=== PATIENT | male | born 1965 | race Caucasian/White ===

== ENCOUNTER 2016-07-16 20:24 | Inpatient (IN) ==
--- NOTE | 2016-07-16 20:35 | Emergency Department Note ---
Disposition Clinical Impression: Cerebrovascular disease, Alcohol withdrawal, Hypokalemia, Hallucinosis, Abnormal EKG, Head injury, Abnormal liver function test, Abnormal urinalysis, Abnormal EKG, Tachycardia Disposition: Admitted As Inpatient Condition: Fair Referrals: NO,PCP [Primary Care Provider] - Forms: ED Satisfaction Letter General Adult HPI - General Chief complaint: ED Psychiatric Symptoms Stated complaint: psych/withdrawal Time Seen by Provider: 07/16/16 20:34 - History of Present Illness HPI Narrative: 51-year-old male brought in to the ED, there is concern for hallucinosis and possible alcohol withdrawal. The patient just checked himself out from a detox facility. He reports he has not had a drink of alcohol since Tuesday. The family members report the patient thinks he is "Thor", he is having hallucinations. The patient was hearing voices telling him to bang his head on the table which he did. There is no history of seizure. There is no history of laceration or bleeding or drug overdose. The patient denies chest pain shortness of breath or abdominal pain. There is no history of fever or headache. No neck pain or back pain no rashes. There is been no numbness or weakness in the arms or legs or bowel or bladder dysfunction no unilateral arm weakness or numbness or slurred speech. The patient is currently not anticoagulated. There is a history of tremulousness particularly in the upper extremities. The patient is not known to be diabetic. - Related Data Home Medications Medication Instructions Recorded Confirmed Multivitamin [Multi-Day Vitamins] 1 each PO DAILY 07/16/16 07/16/16 Allergies Allergy/AdvReac Type Severity Reaction Status Date / Time lorazepam [From Ativan] Allergy See Verified 11/27/14 00:59 Comments All systems ED: reviewed and negative except as stated. Past Medical History - Past Medical History Medical history: Reports: no medical history, other (Chronic alcohol abuse) Surgical history: Reports: other - Social History Smoking Status: Current every day smoker Alcohol use: Reports: occasionally Drug use: Reports: none Physical Exam - General Limitations: no limitations General appearance: alert, in no apparent distress - Head Head exam: atraumatic, normocephalic, normal inspection - Eye Eye exam: Present: normal appearance, PERRL, EOMI. Absent: scleral icterus, conjunctival injection, miosis, mydriasis - ENT ENT exam: normal exam, normal oropharynx, mucous membranes moist, TM's normal bilaterally, normal external ear exam - Neck Neck exam: Present: normal inspection, full ROM, trachea midline. Absent: tenderness, meningismus - Chest Chest inspection: Present: normal inspection, symmetric chest wall rise. Absent : tenderness - Respiratory Respiratory exam: Present: normal lung sounds bilaterally. Absent: respiratory distress, wheezes, stridor, accessory muscle use, prolonged expiratory phase - Cardiovascular Cardiovascular exam: Present: regular rate, normal rhythm, normal heart sounds - Abdominal Exam Abdominal exam: Present: soft, Non-Tender, normal bowel sounds. Absent: tenderness, distention, guarding, rebound, rigidity, trauma - Extremities Exam Extremities exam: Present: normal inspection, full ROM, normal capillary refill. Absent: tenderness, pedal edema, joint swelling, calf tenderness - Expanded Lower Extremity Exam Hip/Pelvis exam: Present: full ROM. Absent: tenderness Upper leg exam: Present: full ROM. Absent: tenderness Knee exam: Present: full ROM. Absent: tenderness Lower leg exam: Present: full ROM. Absent: tenderness Ankle exam: Present: full ROM. Absent: tenderness Foot/toe exam: Present: full ROM. Absent: tenderness Neurovascular/Tendon exam: Present: normal capillary refill. Absent: motor deficit, sensory deficit, tendon deficit, extremity cold to touch, pallor - Back Exam Back exam: Present: normal inspection, full ROM. Absent: tenderness, CVA tenderness (R), CVA tenderness (L), vertebral tenderness - Neurological Exam Neurological exam: Present: alert, oriented X3, CN II-XII intact, other (Gen. upper extremity tremors are noted in the hands. ). Absent: motor sensory deficit - Psychiatric Psychiatric exam: Present: normal affect, normal mood - Skin Skin exam: Present: warm, dry, intact, normal color. Absent: rash, cyanosis, diaphoresis, erythema, pallor, mottled Course Vital Signs Temperature 98.3 F 07/16/16 20:30 Pulse Rate 108 07/16/16 20:30 Respiratory Rate 18 07/16/16 20:30 Blood Pressure 121/105 07/16/16 20:30 O2 Sat by Pulse Oximetry 98 07/16/16 20:30 Temperature 98.3 F 07/16/16 20:30 Pulse Rate 108 07/16/16 20:30 Respiratory Rate 18 07/16/16 20:30 Blood Pressure 121/105 07/16/16 20:30 O2 Sat by Pulse Oximetry 98 07/16/16 20:30 Oxygen Delivery Oxygen Delivery Room Air Medical Decision Making - [facility] Narrative Medical decision making narrative: The patient has been hallucinating, he is hearing voices, the patient is tremulous and has a presentation consistent with alcohol withdrawal syndrome. His potassium is notably low at 2.2. His liver function tests are abnormal as well as his urinalysis. The patient has been banging his head, there is no obvious trauma to the head, his CT scan head is negative. His neck is supple with no evidence of focal tenderness over the cervical spine. There is no evidence of trauma otherwise. Based on his appearance confusion, likely alcohol withdrawal syndrome, severe electrolyte abnormality, I thought it would be appropriate to admit the patient to the hospital. I discussed the case with the hospitalist on-call who has accepted the patient to his care. The patient is currently stable pending admission. Valium was ordered as well as potassium chloride by mouth and IV. - Lab Data Lab results reviewed: Yes I reviewed the patient's lab results. Result diagrams: 07/16/16 21:28 07/16/16 21:28 Lab Results 07/16/16 07/16/16 07/16/16 Range/Units 21:28 21:28 21:28 WBC 4.5 (4.3-11.1) K/mcL RBC 4.73 (4.19-5.50) M/mcL Hgb 14.9 (12.9-16.9) g/dL Hct 43.0 (37.5-50.1) % MCV 90.9 (83.0-100.0) fL MCH 31.5 (28.0-33.3) pg MCHC 34.7 (31.6-35.5) g/dL RDW 15.7 H (11.5-14.5) % Plt Count 127 L (140-400) K/mcL MPV 9.5 (9.4-12.4) fL Immature Gran % 0.2 (0-4) % Seg Neutrophils % 66.5 % Lymphocytes % 19.2 % Monocytes % 13.0 % Eosinophils % 0.9 % Basophils % 0.2 % Neutrophils # 3.0 (1.6-8.9) K/mcL Lymphocytes # 0.9 (0.6-4.6) K/mcL Monocytes # 0.6 (0.0-1.3) K/mcL Eosinophils # 0.0 (0.0-0.6) K/mcL Basophils # 0.0 (0.0-0.2) K/mcL PT (9.4-12.1) Seconds INR APTT (26.0-36.0) Seconds Sodium 138 (136-145) mEq/L Potassium 2.2 L* (3.5-4.5) mEq/L Chloride 97 L (98-109) mEq/L Carbon Dioxide 26 (19-29) mEq/L BUN 16 (8-26) mg/dL Creatinine 1.08 (0.72-1.25) mg/dL Est GFR ( Amer) > 60 (> 60) Est GFR (Non-Af Amer) > 60 (> 60) BUN/Creatinine Ratio 15 (6-26) Glucose 87 (70-99) mg/dL Calculated Osmolality 287 (280-300) Calcium 10.3 (8.6-10.8) mg/dL Total Bilirubin 1.7 H (0.2-1.2) mg/dL Direct Bilirubin 0.6 H (0.0-0.5) mg/dL Indirect Bilirubin 1.1 (0.0-1.2) mg/dL AST 54 H (5-34) Units/L ALT 60 H (0-55) Units/L Alkaline Phosphatase 83 (38-126) Units/L Creatine Kinase 566 H (30-200) Units/L C-Reactive Protein 5 H (Less than 5) mg/L Serum Total Protein 7.8 (6.0-8.3) g/dL Albumin 4.3 (3.5-5.0) g/dL Globulin 3.5 (2.4-3.5) g/dL Albumin/Globulin Ratio 1.2 (1.1-2.2) Lipase 20 (8-78) Units/L TSH 0.751 (0.350-4.840) mcIU/mL Urine Color (Yellow) Urine Clarity (Clear) Urine pH (5.0-8.0) pH Units Ur Specific [place] (1.010-1.025) Urine Protein (Neg-Trace) mg/dL Urine Glucose (UA) (Normal) mg/dL Urine Ketones (Negative) mg/dL Urine Blood (Negative) Urine Nitrite (Negative) Urine Bilirubin (Negative) Urine Urobilinogen (Normal) mg/dL Ur Leukocyte Esterase (Negative) Urine Microscopic RBC (0-3) per hpf Urine Microscopic WBC (0-3) per hpf Ur Squamous Epith Cells (None-Few) per lpf Urine Bacteria (None-Few) per hpf Hyaline Casts (None-Few) per lpf Urine Mucus (Few) Salicylates < 5.0 L (15-30) mg/dL Urine Opiates Screen (Rdgpap=957) ng/mL Acetaminophen < 1.0 L (10-30) mcg/mL Ur Barbiturates Screen (Ympvkz=763) ng/mL Ur Phencyclidine Scrn (Cutoff=25) ng/mL Ur Amphetamines Screen (Aiesme=6517) ng/mL U Benzodiazepines Scrn (Owzdqe=647) ng/mL Urine Cocaine Screen (Cutoff= 300) ng/mL U Marijuana (THC) Screen (Cutoff = 50) ng/mL Ethyl Alcohol < 10 (0-10) mg/dL 07/16/16 07/16/16 07/16/16 Range/Units 21:28 21:47 21:47 WBC (4.3-11.1) K/mcL RBC (4.19-5.50) M/mcL Hgb (12.9-16.9) g/dL Hct (37.5-50.1) % MCV (83.0-100.0) fL MCH (28.0-33.3) pg MCHC (31.6-35.5) g/dL RDW (11.5-14.5) % Plt Count (140-400) K/mcL MPV (9.4-12.4) fL Immature Gran % (0-4) % Seg Neutrophils % % Lymphocytes % % Monocytes % % Eosinophils % % Basophils % % Neutrophils # (1.6-8.9) K/mcL Lymphocytes # (0.6-4.6) K/mcL Monocytes # (0.0-1.3) K/mcL Eosinophils # (0.0-0.6) K/mcL Basophils # (0.0-0.2) K/mcL PT 11.8 (9.4-12.1) Seconds INR 1.1 APTT 30.4 (26.0-36.0) Seconds Sodium (136-145) mEq/L Potassium (3.5-4.5) mEq/L Chloride (98-109) mEq/L Carbon Dioxide (19-29) mEq/L BUN (8-26) mg/dL Creatinine (0.72-1.25) mg/dL Est GFR ( Amer) (> 60) Est GFR (Non-Af Amer) (> 60) BUN/Creatinine Ratio (6-26) Glucose (70-99) mg/dL Calculated Osmolality (280-300) Calcium (8.6-10.8) mg/dL Total Bilirubin (0.2-1.2) mg/dL Direct Bilirubin (0.0-0.5) mg/dL Indirect Bilirubin (0.0-1.2) mg/dL AST (5-34) Units/L ALT (0-55) Units/L Alkaline Phosphatase (38-126) Units/L Creatine Kinase (30-200) Units/L C-Reactive Protein (Less than 5) mg/L Serum Total Protein (6.0-8.3) g/dL Albumin (3.5-5.0) g/dL Globulin (2.4-3.5) g/dL Albumin/Globulin Ratio (1.1-2.2) Lipase (8-78) Units/L TSH (0.350-4.840) mcIU/mL Urine Color [place] A (Yellow) Urine Clarity Turbid A (Clear) Urine pH 6.0 (5.0-8.0) pH Units Ur Specific [place] 1.027 H (1.010-1.025) Urine Protein >=300 H (Neg-Trace) mg/dL Urine Glucose (UA) Normal (Normal) mg/dL Urine Ketones 15 H (Negative) mg/dL Urine Blood Trace H (Negative) Urine Nitrite Positive A (Negative) Urine Bilirubin Moderate H (Negative) Urine Urobilinogen Normal (Normal) mg/dL Ur Leukocyte Esterase Small H (Negative) Urine Microscopic RBC 5-15 H (0-3) per hpf Urine Microscopic WBC 5-15 H (0-3) per hpf Ur Squamous Epith Cells Many H (None-Few) per lpf Urine Bacteria None Seen (None-Few) per hpf Hyaline Casts Many H (None-Few) per lpf Urine Mucus Many H (Few) Salicylates (15-30) mg/dL Urine Opiates Screen Negative (Rozjwz=179) ng/mL Acetaminophen (10-30) mcg/mL Ur Barbiturates Screen Negative (Wygoas=698) ng/mL Ur Phencyclidine Scrn Negative (Cutoff=25) ng/mL Ur Amphetamines Screen Negative (Ioteay=9135) ng/mL U Benzodiazepines Scrn Negative (Rrnzeo=757) ng/mL Urine Cocaine Screen Negative (Cutoff= 300) ng/mL U Marijuana (THC) Screen Negative (Cutoff = 50) ng/mL Ethyl Alcohol (0-10) mg/dL - Radiology Data Radiology results reviewed: Yes I reviewed the patient's radiology results.
[2016-07-16 21:34] LABS: Basophils % 0.2 %; Eosinophils % 0.9 %; Hemoglobin 14.9 g/dL (12.9-16.9); Immature Granulocytes % 0.2 % (0-4); Lymphocytes # 0.9 K/mcL (0.6-4.6); Lymphocytes % 19.2 %; Mean Corpuscular HGB Conc 34.7 g/dL (31.6-35.5); Mean Corpuscular Hemoglobin 31.5 pg (28.0-33.3); Mean Corpuscular Volume 90.9 fL (83.0-100.0); Mean Platelet Volume 9.5 fL (9.4-12.4); Monocytes # 0.6 K/mcL (0.0-1.3); Platelet Count 127 K/mcL (140-400); Red Blood Count 4.73 M/mcL (4.19-5.50); Red Cell Distribution Width 15.7 % (11.5-14.5); Segmented Neutrophils % 66.5 %
[2016-07-16 21:42] LABS: INR 1.1; Prothrombin Time 11.8 Seconds (9.4-12.1)
[2016-07-16 21:44] LABS: Activated Partial Thrombo Time 30.4 Seconds (26.0-36.0)
[2016-07-16 21:51] LABS: C-Reactive Protein 5 mg/L (Less than 5); Lipase 20 Units/L (8-78)
[2016-07-16 21:52] LABS: Acetaminophen < 1.0 mcg/mL (10-30); Alanine Aminotransferase 60 Units/L (0-55); Albumin 4.3 g/dL (3.5-5.0); Albumin/Globulin Ratio 1.2 (1.1-2.2); Alkaline Phosphatase 83 Units/L (38-126); Aspartate Amino Transferase 54 Units/L (5-34); BUN/Creatinine Ratio 15 (6-26); Bilirubin,Direct 0.6 mg/dL (0.0-0.5); Bilirubin,Indirect 1.1 mg/dL (0.0-1.2); Bilirubin,Total 1.7 mg/dL (0.2-1.2); Blood Urea Nitrogen 16 mg/dL (8-26); Calcium 10.3 mg/dL (8.6-10.8); Carbon Dioxide 26 mEq/L (19-29); Chloride 97 mEq/L (98-109); Ethanol < 10 mg/dL (0-10); Globulin 3.5 g/dL (2.4-3.5); Glucose 87 mg/dL (70-99); Osmolality,Calculated 287 (280-300); Salicylate < 5.0 mg/dL (15-30); Sodium 138 mEq/L (136-145); Total Protein 7.8 g/dL (6.0-8.3); eGFR For African Americans > 60 (> 60); eGFR For Non-African Americans > 60 (> 60)
[2016-07-16 21:54] LABS: Potassium 2.2 mEq/L (3.5-4.5)
[2016-07-16 21:55] LABS: Bilirubin,Urine Moderate (Negative); Blood,Urine Trace (Negative); Clarity,Urine Turbid (Clear); Color,Urine Orange (Yellow); Glucose,Urine (UA) Normal (Normal); Ketones,Urine 15 mg/dL (Negative); Leukocyte Esterase,Urine Small (Negative); Nitrite,Urine Positive (Negative); Protein,Urine >=300 mg/dL (Neg-Trace); Specific Gravity,Urine 1.027 (1.010-1.025); Urobilinogen,Urine Normal (Normal)
[2016-07-16] MEDS ORDERED: Potassium Chloride 20 MEQ, Lidocaine 1% 2 ML in D5% in Water 250 ML IVPB ONE (21:56)
[2016-07-16 21:57] LABS: Bacteria,Urine None Seen per hpf (None-Few); Squamous Epithelial Cell,Urine Many per lpf (None-Few)
[2016-07-16] MEDS ORDERED: diazePAM 10 MG/2 ML SYRINGE IVP ONE (21:59)
[2016-07-16 22:08] LABS: Hyaline Casts,Urine Many per lpf (None-Few); Mucus,Urine Many (Few)
[2016-07-16 22:12] LABS: Thyroid Stimulating Hormone 0.751 mcIU/mL (0.350-4.840)
[2016-07-16 22:15] LABS: Amphetamine Screen,Urine Negative ng/mL (Cutoff=1000); Barbiturate Screen,Urine Negative ng/mL (Cutoff=200); Benzodiazepines Screen,Urine Negative ng/mL (Cutoff=200); Cannabinoid Screen,Urine Negative ng/mL (Cutoff = 50); Cocaine Screen,Urine Negative ng/mL (Cutoff= 300); Opiate Screen,Urine Negative ng/mL (Cutoff=300); Phencyclidine Screen,Urine Negative ng/mL (Cutoff=25)
[2016-07-16 22:24] LABS: Creatine Kinase 566 Units/L (30-200)
[2016-07-16] MEDS ORDERED: diazePAM 10 MG/2 ML SYRINGE IVP PRN ×4 (23:33)
[2016-07-16] MEDS ORDERED: *HR* Promethazine 25 MG/ML VIAL IVP PRN (23:33)
[2016-07-16] MEDS ORDERED: Naloxone 0.4 MG/ML INJ IVP PRN (23:38)
[2016-07-17] MEDS ORDERED: Magnesium Sulfate 2 GM in D5% in Water 100 ML IVPB ONE (00:28)
--- NOTE | 2016-07-17 00:46 | Internal Med History&Physical ---
Date of Encounter: 07/17/16 Time of Encounter: 00:41 Assessment and Plan (1) Wernickes encephalopathy Current visit: Yes Status: Acute Patient's constellation of symptoms including altered mental status and encephalopathy, nystagmus, ataxia and history of alcohol abuse is concerning for Wernicke encephalopathy. We will replace thiamine. We will continue to closely monitor the patient's neurologic symptoms. Alcohol withdrawal is also a concern however if his last drink was on Tuesday he would be towards the end of the window for alcohol withdrawal. Nonetheless we will place the patient on the CIWA protocol and monitor for symptoms of withdrawal and treat with Valium as needed. Patient's behaviors are likely cause for elevated CK, no evidence of rhabdomyolysis. We will fluid hydrate and recheck in the morning. (2) Alcoholism Current visit: Yes Status: Acute Patient reports last drink on Tuesday, we will monitor for withdrawal symptoms as discussed above. We will place social work consult for further outpatient follow-up (3) Hypokalemia Current visit: Yes Status: Acute Likely related to poor by mouth intake in the setting of alcohol use. Potassium was 2.2 on presentation. The patient does not use diuretics and does not have a history of any recent diarrhea. No EKG changes noted. Will replete with by mouth and IV potassium. Recheck BMP in the morning. Magnesium was also 1.5, will replete. (4) UTI (urinary tract infection) Current visit: Yes Status: Acute Patient has positive nitrites with small leukocyte esterase and white blood cells in the urine. Given the patient's altered mental status we will treat with Rocephin 1 g daily for 3 days. Qualifiers: Urinary tract infection type: site unspecified Hematuria presence: with hematuria Qualified Code(s): N39.0 - Urinary tract infection, site not specified; R31.9 - Hematuria, unspecified (5) Transaminitis Current visit: Yes Status: Acute AST 54 and a ALT 60. Likely related to alcohol use. No history of hepatitis or chronic liver disease. Will trend LFTs. (6) DVT prophylaxis Current visit: Yes Status: Acute Heparin 5000 units subcutaneous twice a day. Internal Medicine - H&P: HPI Chief complaint: AMS Admitted From: Emergency Dept Plans for Post Hospital Care: Home History of present illness: Mr. Pulliam is a 51 year old male with history of alcohol abuse presents with altered mental status. Patient states that he had an episode today where he was banging his head on the table. Patient states he remembers this event and is not sure why he did it. Patient states that otherwise he has been feeling pretty normal. Patient states that he is an alcoholic and most recently drank on Tuesday. Patient states that he was sober for approximately 3 years and started again drinking around his birthday in April. Patient states that he did not drink every day and when he did drink was about a quarter of a fifth of hard liquor. Patient reports having withdrawal symptoms in the past including seizures. Patient denies withdrawal symptoms since he stopped drinking on Tuesday. Denies any recent seizure activity. Patient states that his been feeling a little unsteady on his feet recently. Patient denies hallucinations to me. He denies fever, chills, chest pain, shortness of breath, abdominal pain , nausea, vomiting, diarrhea or dysuria, lower extremity swelling. At the time I examined the patient there is no family to give further history but on review of the ED documentation family members did report hallucinations and it was voices that told him to hit his head on the table. It is also reported that the patient recently checked himself out of a detox facility however he tells me that he has not been in treatment recently. Past Med Surg Social Fam HX - Past Medical History Medical history: no medical history, other (Chronic alcohol abuse) Psychiatric history: no psych history - Past Surgical History Surgical History: other - Social History Smoking Status: Current every day smoker Alcohol use: occasionally Drug use: none - Additional Family History Additional family history: Patient denies any significant family history. Internal Medicine - H&P: Meds Multivitamin [Multi-Day Vitamins] 1 each PO DAILY 07/16/16 [History] Allergies lorazepam [From Ativan] Allergy (Verified 11/27/14 00:59) See Comments reverse side affects All Systems PM: A 10-system review of systems was performed and is negative for pertinent findings except as documented above in the HPI. - Constitutional Constitutional: no chills, no fever(s) - EENT Eyes: blurry vision Nose, mouth and throat: no sinus pain, no sinus pressure, no sore throat - Cardiovascular Cardiovascular ROS IM: no chest pain, no dyspnea, no syncope - Respiratory Respiratory: no cough, no dyspnea - Gastrointestinal Gastrointestinal: no abdominal pain, no diarrhea, no nausea, no vomiting - Genitourinary Genitourinary ROS male: no dysuria, no hematuria - Integumentary Integumentary IM: no erythema, no rash - Neurological Neurological ROS: abnormal gait, behavioral changes, confusion, disequilibrium, tremor(s), other visual disturbances, no focal weakness, no frequent falls, no headache(s), no numbness, no tingling - Psychiatric Psychiatric: hallucinations, no homicidal ideation, no suicidal ideation - Endocrine Endocrine IM: no polydipsia, no polyuria - Hematologic/Lymphatic Hematologic/Lymphatic: no easy bleeding, no easy bruising - Constitutional Vitals: Temp Pulse Resp BP Pulse Ox 98.5 F 84 16 116/86 100 07/17/16 00:22 07/17/16 00:07/17/16 00:07/17/16 00:07/17/16 00:22 General appearance: Present: A&O X 3, no acute distress Exam: Appears mildly anxious - Head Head exam: Present: atraumatic, normal inspection, normocephalic - Eye Eye exam: Present: EOMI, PERRL Additional comments: Horizontal nystagmus present bilaterally - ENT ENT exam: Present: mucous membranes moist - Neck Neck exam general surgery: Present: full ROM. Absent: tenderness, nuchal rigidity - Respiratory Respiratory exam: Present: CTAB. Absent: rales, rhonchi, wheezes - Cardiovascular Cardiovascular exam: Present: RRR. Absent: gallop, rubs, systolic murmur, tachycardia - GI/Abdominal GI/Abdominal exam: Present: normal bowel sounds, soft, no peritoneal signs. Absent: distended, tenderness - Extremities Exam Extremities exam: Present: warm. Absent: calf tenderness, pedal edema - Neurological Exam Neurological exam: Present: abnormal gait (Significant ataxia) Additional comments: Patient is alert and oriented 3. He does have some jerking motions in his upper extremity. There is horizontal nystagmus present bilaterally. Cranial nerves II through XII are intact. No focal weakness. - Psychiatric Psychiatric exam: Present: flat affect. Absent: homicidal ideation, suicidal ideation Additional comments: Patient seems to have some memory difficulty. He appears to be minimizing both his symptoms and his alcohol use - Skin Skin exam: Present: dry, intact, warm Internal Med - H&P Results - Labs CBC & Chem 7: 07/16/16 21:28 07/16/16 21:28
[2016-07-17] MEDS: Thiamine (B-1) 100 MG, Folic Acid 1 MG, MVI, adult with vitamin K 10 ML in 0.9 % Sodi... IVPB SCH (01:23)
--- NOTE | 2016-07-17 03:47 | Event Note ---
Date of Encounter: 07/17/16 Time of Encounter: 03:46 Patient and examined withpractitioner. Agree with assessment and plan
[2016-07-17 05:15] LABS: Basophils % 0.5 %; Eosinophils # 0.2 K/mcL (0.0-0.6); Eosinophils % 3.9 %; Hematocrit 39.3 % (37.5-50.1); Hemoglobin 13.3 g/dL (12.9-16.9); Immature Granulocytes % 0.5 % (0-4); Lymphocytes # 1.5 K/mcL (0.6-4.6); Lymphocytes % 34.9 %; Mean Corpuscular HGB Conc 33.8 g/dL (31.6-35.5); Mean Corpuscular Hemoglobin 30.7 pg (28.0-33.3); Mean Corpuscular Volume 90.8 fL (83.0-100.0); Mean Platelet Volume 9.3 fL (9.4-12.4); Monocytes # 0.6 K/mcL (0.0-1.3); Monocytes % 12.5 %; Neutrophils # 2.1 K/mcL (1.6-8.9); Platelet Count 127 K/mcL (140-400); Red Blood Count 4.33 M/mcL (4.19-5.50); Red Cell Distribution Width 15.9 % (11.5-14.5); Segmented Neutrophils % 47.7 %
[2016-07-17 05:21] LABS: INR 1.1; Prothrombin Time 11.6 Seconds (9.4-12.1)
[2016-07-17 05:31] LABS: Alanine Aminotransferase 52 Units/L (0-55); Albumin 3.9 g/dL (3.5-5.0); Albumin/Globulin Ratio 1.4 (1.1-2.2); Alkaline Phosphatase 67 Units/L (38-126); Aspartate Amino Transferase 46 Units/L (5-34); BUN/Creatinine Ratio 17 (6-26); Bilirubin,Direct 0.6 mg/dL (0.0-0.5); Bilirubin,Indirect 1.1 mg/dL (0.0-1.2); Bilirubin,Total 1.7 mg/dL (0.2-1.2); Blood Urea Nitrogen 14 mg/dL (8-26); Calcium 9.2 mg/dL (8.6-10.8); Carbon Dioxide 25 mEq/L (19-29); Chloride 99 mEq/L (98-109); Creatine Kinase 497 Units/L (30-200); Globulin 2.8 g/dL (2.4-3.5); Glucose 76 mg/dL (70-99); Magnesium 1.9 mg/dL (1.6-2.6); Osmolality,Calculated 281 (280-300); Potassium 2.6 mEq/L (3.5-4.5); Sodium 136 mEq/L (136-145); Total Protein 6.7 g/dL (6.0-8.3); eGFR For African Americans > 60 (> 60); eGFR For Non-African Americans > 60 (> 60)
[2016-07-17] MEDS: Pantoprazole 40 MG VIAL IVP SCH (06:53)
[2016-07-17] MEDS: 0.9 % Sodium Chloride 1,000 ML IVC SCH ×2 (06:53→17:35)
[2016-07-17] MEDS: *HR* Heparin 5,000 UNIT/ML VIAL SQ SCH ×2 (06:53→17:35)
[2016-07-17] MEDS ORDERED: Potassium Chloride 40 MEQ, Lidocaine 1% 2 ML in D5% in Water 500 ML IVPB ONE (08:47)
[2016-07-17] MEDS ORDERED: Magnesium Sulfate 1 GM in D5% in Water 100 ML IVPB ONE (08:48)
--- NOTE | 2016-07-17 12:58 | Internal Med Progress Note ---
Date of Encounter: 07/17/16 Time of Encounter: 12:55 - Assessment and plan (1) Alcohol withdrawal Current Visit: Yes Status: Acute Assessment and plan: Minimal benzodiazepine requirements. Continues [facility] protocol. Qualifiers: Qualified Code(s): F10.239 - Alcohol dependence with withdrawal, unspecified (2) Head injury Current Visit: Yes Status: Acute Assessment and plan: Patient mentioned it before he came he was banging his head against the table. I will ask psychiatry to evaluate the patient Qualifiers: Qualified Code(s): S09.90XA - Unspecified injury of head, initial encounter (3) UTI (urinary tract infection) Current Visit: Yes Status: Acute Assessment and plan: Ceftriaxone. Qualifiers: Urinary tract infection type: site unspecified Hematuria presence: with hematuria Qualified Code(s): N39.0 - Urinary tract infection, site not specified; R31.9 - Hematuria, unspecified (4) Hypokalemia Current Visit: Yes Status: Acute Assessment and plan: Due to chronic alcoholism. Protests in this morning's 2.6. 40 IV milliequivalents of KCl is given magnesium is also being replaced. repeat K and Mg in the evening -patient will stay one more day in hospital for psychiatric evaluation as well as replacement of his severe hypokalemia - Subjective Interval history: Patient seen and examined. Minimal benzodiazepine requirements for alcohol withdrawal. - Constitutional Vitals: Temp Pulse Resp BP Pulse Ox 98.1 F 87 18 133/93 98 07/17/16 11:30 07/17/16 11:30 07/17/16 11:30 07/17/16 11:30 07/17/16 11:30 General appearance: Present: A&O X 3, no acute distress Exam: Gen.: patient is alert oriented times 3 not in distress. Cardiac: normal S1 S2 no additional sounds or murmurs chest: fair air entry. no active wheezing. No crackles or bronchial breathing. abdomen: soft nontender nondistended normal bowel sounds neuro: no focal deficit Internal Medicine: Result - Labs CBC & Chem 7: 07/17/16 04:53 07/17/16 04:53 Labs: Short CBC 07/17/16 Range/Units 04:53 WBC 4.4 (4.3-11.1) K/mcL Hgb 13.3 D (12.9-16.9) g/dL Hct 39.3 (37.5-50.1) % Plt Count 127 L (140-400) K/mcL Neutrophils # 2.1 (1.6-8.9) K/mcL BMP 07/17/16 04:53 Sodium 136 Potassium 2.6 L Chloride 99 Carbon Dioxide 25 BUN 14 Creatinine 0.81 Glucose 76 Calcium 9.2 Liver Function 07/17/16 Range/Units 04:53 Total Bilirubin 1.7 H (0.2-1.2) mg/dL Direct Bilirubin 0.6 H (0.0-0.5) mg/dL AST 46 H (5-34) Units/L ALT 52 (0-55) Units/L Alkaline Phosphatase 67 (38-126) Units/L Albumin 3.9 (3.5-5.0) g/dL - ABG Interpretation ABG results: PT/INR, D-dimer PT 11.6 Seconds (9.4-12.1) 07/17/16 04:53 Consult Discharge Plan - Plan Referrals: NO,PCP [Primary Care Provider] -
[2016-07-17 13:17] LABS: Magnesium 1.7 mg/dL (1.6-2.6); Potassium 3.1 mEq/L (3.5-4.5)
--- NOTE | 2016-07-17 16:19 | Consult Note ---
Date of Encounter: 07/17/16 Time of Encounter: 15:30 Assessment & Recommendation (1) Wernickes encephalopathy Current visit: Yes Status: Acute Assessment & Recommendation: Patient has a long-standing history of alcoholism and does meet criteria for Wernicke's encephalopathy. It is unclear what the patient's baseline is. I have attempted to review records from this MRI from outpatient records and I do not see any mention of psychosis or other mental health issues other than alcohol dependence. I would recommend contacting family to find out if patient is at his baseline. At this time he denies any thoughts of wanting to hurt himself and he does not appear to be responding to internal stimuli. He does report incorrect information which may be confabulation regarding his employment. He is calm throughout the interview. Patient's mental state could be secondary to his underlying condition or secondary to withdrawal symptoms. We will continue to monitor. History of Present Illness Patient: new to practice Requesting Physician: Eileen Mosley CNP Reason for consult: Alcohol withdrawal/pyschosis History of present illness: Mr. Pulliam is a 51 year old male history of alcohol dependence who presented to the hospital with withdrawal symptoms and was admitted to the medical floor. Patient has also been diagnosed with Wernicke's encephalopathy. He denies auditory or visual hallucinations to me. He denies delusions. 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 Of note [employer] was on television when he reported this to myself and the resident. Patient denies any other history of depression, bipolar disorder, PTSD. He denies any recent drinking although it is documented in the chart that he had his last drink on Tuesday and he had been sober for about 3 years until this past April. Patient denies he has any close relatives or family that well. He does not want to hurt himself. He denies history of suicide attempts. CC: Eileen Mosley CNP Past Med Surg Social Fam HX - Past Medical History Medical history: no medical history, other (Chronic alcohol abuse) - Past Psychiatric History Past psychiatric history details: Unclear. Patient denies any past psychiatric admissions. Family psychiatric history: Unknown Family History of Suicide: None - Past Surgical History Surgical History: other - Social History Smoking Status: Current every day smoker Smokeless Tobacco Status: Yes Alcohol use: occasionally Drug use: none - Family History Mother Living Status: Still Living Hx Family Cardiac Disorders: No Hx Family Respiratory Disorders: No Hx Family Cancer: No Hx Family GI Disorders: No Hx Family Genitourinary Disorders: No Hx Family Endocrine Disorder: No Hx Family Musculoskeletal Disorders: No Hx Family Neuromuscular Disorders: No Hx Family Neurologic Disorders: No Hx Family HEENT Disorders: No Hx Family Autoimmune Disorders: No Hx Family Reproductive Disorders: No Hx Family Psychosocial Disorders: No Hx Family Medical Disorders: No Father Living Status: Still Living Hx Family Cardiac Disorders: No Hx Family Respiratory Disorders: No Hx Family Cancer: No Hx Family GI Disorders: No Hx Family Genitourinary Disorders: No Hx Family Endocrine Disorder: No Hx Family Musculoskeletal Disorders: No Hx Family Neuromuscular Disorders: No Hx Family Neurologic Disorders: No Hx Family HEENT Disorders: No Hx Family Autoimmune Disorders: No Hx Family Reproductive Disorders: No Hx Family Psychosocial Disorders: No Hx Family Medical Disorders: No Grandfather Living Status: Hx Family Cancer: Yes (Colon Cancer) Medications & Allergies Multivitamin [Multi-Day Vitamins] 1 each PO DAILY 07/16/16 [History] Allergies lorazepam [From Ativan] Allergy (Verified 11/27/14 00:59) See Comments reverse side affects Review of Systems Constitutional: Denies: fever, chills, weakness, weight change Eyes: Denies: eye pain, vision change Ears, Nose, Throat: Denies: ear pain, throat pain, dental pain, hearing loss, congestion Cardiovascular: Denies: chest pain, palpitations, dyspnea on exertion Respiratory: Denies: cough, dyspnea, wheezes Gastrointestinal: Denies: abdominal pain, nausea, vomiting, diarrhea, constipation Genitourinary male: Denies: urgency, dysuria, frequency, genital lesions Genitourinary female: Denies: urgency, dysuria, frequency, abnormal menses, dyspareunia Musculoskeletal: Reports: back pain Integumentary: Denies: rash, lesions, pruritus Neurological: Denies: headache, weakness, numbness, memory loss Psychiatric: Reports: anxiety, memory loss. Denies: suicidal ideation, auditory hallucinations, visual hallucinations, panic attacks Endocrine: Denies: fatigue, heat or cold intolerance Hematologic/Lymphatic: Denies: easy bruising, lymphadenopathy Allergic/Immunologic: Denies: urticaria, itchy eyes Mental Status Exam Patient orientation: Yes Person, Yes Place, No Circumstance Level of alertness: Alert Patient appearance: Appropriate Behavior: cooperative, guarded Psychomotor activity: Normal Eye contact: Minimal Contact Mood description: Euthymic/stable Affect description: full range Speech pattern: Normal rate, Normal rhythm, Normal tone Speech volume: Normal Thought process: [place] Thought content: No Suicidal ideation, No Homicidal ideation, Yes Overt delusions Perceptual disturbances: No Auditory hallucinations, No Visual hallucinations Attention span: Capable of Focused Attention Memory description: Immediate Intact, Recent Impaired Patient reliability: Not Reliable Historian Intelligence estimate: Average Judgment: Poor Insight: Minimal Results - Vital Signs Vital signs: Temp Pulse Resp BP Pulse Ox 98.2 F 73 16 121/75 96 07/17/16 16:08 07/17/16 16:08 07/17/16 16:08 07/17/16 16:08 07/17/16 16:08 - Labs Labs: Laboratory Last Values WBC 4.4 K/mcL (4.3-11.1) 07/17/16 04:53 RBC 4.33 M/mcL (4.19-5.50) 07/17/16 04:53 Hgb 13.3 g/dL (12.9-16.9) D 07/17/16 04:53 Hct 39.3 % (37.5-50.1) 07/17/16 04:53 MCV 90.8 fL (83.0-100.0) 07/17/16 04:53 MCH 30.7 pg (28.0-33.3) 07/17/16 04:53 MCHC 33.8 g/dL (31.6-35.5) 07/17/16 04:53 RDW 15.9 % (11.5-14.5) H 07/17/16 04:53 Plt Count 127 K/mcL (140-400) L 07/17/16 04:53 MPV 9.3 fL (9.4-12.4) L 07/17/16 04:53 Immature Gran % 0.5 % (0-4) 07/17/16 04:53 Seg Neutrophils % 47.7 % 07/17/16 04:53 Lymphocytes % 34.9 % 07/17/16 04:53 Monocytes % 12.5 % 07/17/16 04:53 Eosinophils % 3.9 % 07/17/16 04:53 Basophils % 0.5 % 07/17/16 04:53 Neutrophils # 2.1 K/mcL (1.6-8.9) 07/17/16 04:53 Lymphocytes # 1.5 K/mcL (0.6-4.6) 07/17/16 04:53 Monocytes # 0.6 K/mcL (0.0-1.3) 07/17/16 04:53 Eosinophils # 0.2 K/mcL (0.0-0.6) 07/17/16 04:53 Basophils # 0.0 K/mcL (0.0-0.2) 07/17/16 04:53 PT 11.6 Seconds (9.4-12.1) 07/17/16 04:53 INR 1.1 07/17/16 04:53 APTT 30.4 Seconds (26.0-36.0) 07/16/16 21:28 Sodium 136 mEq/L (136-145) 07/17/16 04:53 Potassium 3.1 mEq/L (3.5-4.5) L 07/17/16 12:53 Chloride 99 mEq/L (98-109) 07/17/16 04:53 Carbon Dioxide 25 mEq/L (19-29) 07/17/16 04:53 BUN 14 mg/dL (8-26) 07/17/16 04:53 Creatinine 0.81 mg/dL (0.72-1.25) 07/17/16 04:53 Est GFR ( Amer) > 60 (> 60) 07/17/16 04:53 Est GFR (Non-Af Amer) > 60 (> 60) 07/17/16 04:53 BUN/Creatinine Ratio 17 (6-26) 07/17/16 04:53 Glucose 76 mg/dL (70-99) 07/17/16 04:53 Calculated Osmolality 281 (280-300) 07/17/16 04:53 Calcium 9.2 mg/dL (8.6-10.8) 07/17/16 04:53 Magnesium 1.7 mg/dL (1.6-2.6) 07/17/16 12:53 Total Bilirubin 1.7 mg/dL (0.2-1.2) H 07/17/16 04:53 Direct Bilirubin 0.6 mg/dL (0.0-0.5) H 07/17/16 04:53 Indirect Bilirubin 1.1 mg/dL (0.0-1.2) 07/17/16 04:53 AST 46 Units/L (5-34) H 07/17/16 04:53 ALT 52 Units/L (0-55) 07/17/16 04:53 Alkaline Phosphatase 67 Units/L (38-126) 07/17/16 04:53 Creatine Kinase 497 Units/L (30-200) H 07/17/16 04:53 C-Reactive Protein 5 mg/L (Less than 5) H 07/16/16 21:28 Serum Total Protein 6.7 g/dL (6.0-8.3) 07/17/16 04:53 Albumin 3.9 g/dL (3.5-5.0) 07/17/16 04:53 Globulin 2.8 g/dL (2.4-3.5) 07/17/16 04:53 Albumin/Globulin Ratio 1.4 (1.1-2.2) 07/17/16 04:53 Lipase 20 Units/L (8-78) 07/16/16 21:28 TSH 0.751 mcIU/mL (0.350-4.840) 07/16/16 21:28 Urine Color [place] (Yellow) A 07/16/16 21:47 Urine Clarity Turbid (Clear) A 07/16/16 21:47 Urine pH 6.0 pH Units (5.0-8.0) 07/16/16 21:47 Ur Specific [place] 1.027 (1.010-1.025) H 07/16/16 21:47 Urine Protein >=300 mg/dL (Neg-Trace) H 07/16/16 21:47 Urine Glucose (UA) Normal mg/dL (Normal) 07/16/16 21:47 Urine Ketones 15 mg/dL (Negative) H 07/16/16 21:47 Urine Blood Trace (Negative) H 07/16/16 21:47 Urine Nitrite Positive (Negative) A 07/16/16 21:47 Urine Bilirubin Moderate (Negative) H 07/16/16 21:47 Urine Urobilinogen Normal mg/dL (Normal) 07/16/16 21:47 Ur Leukocyte Esterase Small (Negative) H 07/16/16 21:47 Urine Microscopic RBC 5-15 per hpf (0-3) H 07/16/16 21:47 Urine Microscopic WBC 5-15 per hpf (0-3) H 07/16/16 21:47 Ur Squamous Epith Cells Many per lpf (None-Few) H 07/16/16 21:47 Urine Bacteria None Seen per hpf (None-Few) 07/16/16 21:47 Hyaline Casts Many per lpf (None-Few) H 07/16/16 21:47 Urine Mucus Many (Few) H 07/16/16 21:47 Salicylates < 5.0 mg/dL (15-30) L 07/16/16 21:28 Urine Opiates Screen Negative ng/mL (Lugxrv=092) 07/16/16 21:47 Acetaminophen < 1.0 mcg/mL (10-30) L 07/16/16 21:28 Ur Barbiturates Screen Negative ng/mL (Hqrobq=926) 07/16/16 21:47 Ur Phencyclidine Scrn Negative ng/mL (Cutoff=25) 07/16/16 21:47 Ur Amphetamines Screen Negative ng/mL (Tkypmj=4041) 07/16/16 21:47 U Benzodiazepines Scrn Negative ng/mL (Unhwrr=452) 07/16/16 21:47 Urine Cocaine Screen Negative ng/mL (Cutoff= 300) 07/16/16 21:47 U Marijuana (THC) Screen Negative ng/mL (Cutoff = 50) 07/16/16 21:47 Ethyl Alcohol < 10 mg/dL (0-10) 07/16/16 21:28 Consult Discharge Plan - Plan Referrals: NO,PCP [Primary Care Provider] -
[2016-07-17] MEDS: diazePAM 10 MG/2 ML SYRINGE IVP PRN ×2 (17:34→19:45)
[2016-07-17] MEDS ORDERED: Thiamine (B-1) 100 MG, Folic Acid 1 MG, MVI, adult with vitamin K 10 ML in 0.9 % Sodi... IVPB SCH (18:00)
[2016-07-17] MEDS ORDERED: diazePAM 10 MG/2 ML SYRINGE IM STA (21:05)
--- NOTE | 2016-07-17 21:15 | Event Note ---
Date of Encounter: 07/17/16 Time of Encounter: 21:13 I was paged as the patient was hallucinating and swinging at staff and becoming violent. When I arrived, the patient is hallucinating and thinks that he is on a ship. He is not oriented to time. Patient is here with encephalopathy. Due to his hallucinations and violent behavior, he is at risk of self-harm or harm to others. Patient will be placed on restraints so that they can be continuation of care and optimal care of the patient. Patient does not have IV access. I have instructed the nurses to give him a single dose of diazepam 5 mg intramuscularly. Once the restraints were placed, intervenous access will be attempted and his treatment will be continued with benzodiazepines.
[2016-07-17] MEDS ORDERED: diazePAM 10 MG/2 ML SYRINGE IM PRN ×4 (22:22→22:23)
[2016-07-18] MEDS ORDERED: Haloperidol Lactate 5 MG/ML VIAL IM ONE (00:19)
[2016-07-18] MEDS: Thiamine (B-1) 100 MG, Folic Acid 1 MG, MVI, adult with vitamin K 10 ML in 0.9 % Sodi... IVPB SCH (01:16)
--- NOTE | 2016-07-18 01:45 | Event Note ---
Date of Encounter: 07/18/16 Time of Encounter: 01:30 Pt. reevaluated earlier Pt. continued to be combative and fighting off restraints interrrupting delivery of care He was able to break the soft restraints and plastic restraints had to be placed Will continue him on restraints for now I ordered 5 mg of Haldol IM due to his persistent combativeness with hallucinations Patient likely going throught DTs
[2016-07-18] MEDS ORDERED: diazePAM 10 MG/2 ML SYRINGE IV PRN ×2 (01:47)
[2016-07-18 03:45] LABS: Basophils % 1.3 %; Eosinophils # 0.2 K/mcL (0.0-0.6); Eosinophils % 5.5 %; Hematocrit 36.9 % (37.5-50.1); Hemoglobin 12.3 g/dL (12.9-16.9); Immature Granulocytes % 0.3 % (0-4); Lymphocytes # 1.3 K/mcL (0.6-4.6); Lymphocytes % 42.3 %; Mean Corpuscular HGB Conc 33.3 g/dL (31.6-35.5); Mean Corpuscular Hemoglobin 31.4 pg (28.0-33.3); Mean Corpuscular Volume 94.1 fL (83.0-100.0); Mean Platelet Volume 9.3 fL (9.4-12.4); Monocytes # 0.5 K/mcL (0.0-1.3); Monocytes % 14.5 %; Neutrophils # 1.1 K/mcL (1.6-8.9); Platelet Count 118 K/mcL (140-400); Red Blood Count 3.92 M/mcL (4.19-5.50); Red Cell Distribution Width 15.9 % (11.5-14.5); Segmented Neutrophils % 36.1 %
[2016-07-18 03:59] LABS: BUN/Creatinine Ratio 13 (6-26); Blood Urea Nitrogen 9 mg/dL (8-26); Carbon Dioxide 28 mEq/L (19-29); Chloride 103 mEq/L (98-109); Glucose 83 mg/dL (70-99); Magnesium 1.7 mg/dL (1.6-2.6); Osmolality,Calculated 288 (280-300); Potassium 3.1 mEq/L (3.5-4.5); Sodium 140 mEq/L (136-145); eGFR For African Americans > 60 (> 60); eGFR For Non-African Americans > 60 (> 60)
[2016-07-18] MEDS: *HR* Heparin 5,000 UNIT/ML VIAL SQ SCH ×2 (05:15→16:46)
[2016-07-18] MEDS: Pantoprazole 40 MG VIAL IVP SCH (05:15)
[2016-07-18] MEDS: diazePAM 10 MG/2 ML SYRINGE IVP PRN ×2 (07:35→13:54)
[2016-07-18] MEDS ORDERED: Potassium Chloride 40 MEQ, Lidocaine 1% 2 ML in D5% in Water 500 ML IVPB ONE (07:51)
--- NOTE | 2016-07-18 11:41 | Internal Med Progress Note ---
Date of Encounter: 07/18/16 Time of Encounter: 11:37 - Assessment and plan (1) Wernickes encephalopathy Current Visit: Yes Status: Acute Assessment and plan: Concern for Wernicke's encephalopathy given alcohol abuse history and mental status pt continues to have high CIWA scores will continue CIWA monitoring and Diazepam as per CIWA protocol continue Thiamine supplementation Folic acid Banana bag IV fluids continue bedside sitter (2) Alcohol withdrawal Current Visit: Yes Status: Acute Assessment and plan: worsened overnight continue plan as listed above Qualifiers: Qualified Code(s): F10.239 - Alcohol dependence with withdrawal, unspecified (3) Alcoholism Current Visit: Yes Status: Chronic (4) UTI (urinary tract infection) Current Visit: Yes Status: Acute Assessment and plan: continue Ceftriaxone Qualifiers: Urinary tract infection type: site unspecified Hematuria presence: with hematuria Qualified Code(s): N39.0 - Urinary tract infection, site not specified; R31.9 - Hematuria, unspecified (5) Hypokalemia Current Visit: Yes Status: Acute Assessment and plan: K supplemented continue to monitor electrolytes and replace as needed (6) DVT prophylaxis Current Visit: Yes Status: Acute Assessment and plan: Heparin SQ - Subjective Interval history: Patient seen and examined at bedside. Resting in bed with a sitter in place. Patient was reported of having acute acute alcohol withdrawals overnight with aggressive and agitated behavior, requiring restraints and sitter. Pt initially was not allowing any IV access, once he was sedated with IM agents, an IV access was placed. At this time patient is resting in bed. He is calm at this time however not able to participate in conversation due to drowsiness from the Diazepam. He was reported to have significantly elevated CIWA scores requiring higher doses of Diazepam. - Constitutional Vitals: Temp Pulse Resp BP Pulse Ox 98.3 F 82 17 129/91 98 07/18/16 10:17 07/18/16 11:08 07/18/16 10:17 07/18/16 11:08 07/18/16 10:17 General appearance: Present: A&O X 0 (alert but drowsy ), no acute distress ( overweight) - Head Head exam: Present: atraumatic, normocephalic - Respiratory Respiratory exam: Present: CTAB. Absent: accessory muscle use, rales, rhonchi, wheezes - Cardiovascular Cardiovascular exam: Present: RRR, +S1, +S2. Absent: diastolic murmur, gallop, rubs, systolic murmur - GI/Abdominal GI/Abdominal exam: Present: distended (obese ), normal bowel sounds, soft, no peritoneal signs. Absent: tenderness - Extremities Exam Extremities exam: Present: warm, radial pulses palpable and symetrical. Absent : calf tenderness, pedal edema - Neurological Exam Neurological exam: Present: alert Internal Medicine: Result - Labs CBC & Chem 7: 07/18/16 03:34 07/18/16 03:34 Labs: Short CBC 07/18/16 Range/Units 03:34 WBC 3.1 L (4.3-11.1) K/mcL Hgb 12.3 L (12.9-16.9) g/dL Hct 36.9 L (37.5-50.1) % Plt Count 118 L (140-400) K/mcL Neutrophils # 1.1 L (1.6-8.9) K/mcL BMP 07/17/16 07/18/16 12:53 03:34 Sodium 140 Potassium 3.1 L 3.1 L Chloride 103 Carbon Dioxide 28 BUN 9 Creatinine 0.69 L Glucose 83 Calcium 9.0 - ABG Interpretation ABG results: PT/INR, D-dimer PT 11.6 Seconds (9.4-12.1) 07/17/16 04:53 Consult Discharge Plan - Plan Referrals: NO,PCP [Primary Care Provider] -
--- NOTE | 2016-07-18 13:22 | Psychiatry Progress Note ---
Date of Encounter: 07/18/16 Time of Encounter: 13:00 Subjective Interval history: Steven is seen today for follow-up. He denies issues for this provider but overnight he was agitated and required medication for continued alcohol withdrawal. Patient denies he is going through withdrawal at this time but it is evident that he has a mild tremor. Although patient is very guarded and not verbalizing much of this provider. He does deny suicidal or homicidal ideation intent or plan. At the time of the interview he does not appear to be responding to internal stimuli. Review of Systems Psychiatric: Reports: anxiety, memory loss. Denies: suicidal ideation, auditory hallucinations, visual hallucinations, panic attacks Objective: Exam Patient orientation: Yes Person, Yes Place Level of alertness: Alert Patient appearance: Unkempt Behavior: guarded Psychomotor activity: Normal Eye contact: Fleeting Contact Mood description: Euthymic/stable Affect description: blunted Speech pattern: Normal rate, Normal rhythm, Normal tone Speech volume: Normal Thought process: Circumstantial Thought content: No Suicidal ideation, No Homicidal ideation Perceptual disturbances: No Auditory hallucinations, No Visual hallucinations Judgment: Poor Insight: Minimal Results - Vital Signs Vital Signs: Temp Pulse Resp BP Pulse Ox 98.3 F 80 17 134/82 98 07/18/16 10:17 07/18/16 13:00 07/18/16 10:17 07/18/16 13:00 07/18/16 10:17 - Labs Labs: Laboratory Results - last 24 hr 07/18/16 07/18/16 03:34 03:34 WBC 3.1 L RBC 3.92 L Hgb 12.3 L Hct 36.9 L MCV 94.1 MCH 31.4 MCHC 33.3 RDW 15.9 H Plt Count 118 L MPV 9.3 L Immature Gran % 0.3 Seg Neutrophils % 36.1 Lymphocytes % 42.3 Monocytes % 14.5 Eosinophils % 5.5 Basophils % 1.3 Neutrophils # 1.1 L Lymphocytes # 1.3 Monocytes # 0.5 Eosinophils # 0.2 Basophils # 0.0 Sodium 140 Potassium 3.1 L Chloride 103 Carbon Dioxide 28 BUN 9 Creatinine 0.69 L Est GFR ( Amer) > 60 Est GFR (Non-Af Amer) > 60 BUN/Creatinine Ratio 13 Glucose 83 Calculated Osmolality 288 Calcium 9.0 Magnesium 1.7 Assessment and Plan (1) Alcohol withdrawal Current visit: Yes Status: Acute Plan: Continue hospitalization Additional Plan: Patient is having significant alcohol withdrawal. This may have been causing some of patient's paranoia and agitation. Haldol appears to be helping with this. Please recall psychiatry with any further questions or concerns regarding medications for agitation. Risks, benefits, side effects, alternatives discussed w/pt: Yes Patient agreeable to treatment: Yes Qualifiers: Complication of substance-induced condition: with delirium Qualified Code(s ): F10.231 - Alcohol dependence with withdrawal delirium (2) Wernickes encephalopathy Current visit: Yes Status: Acute Consult Discharge Plan - Plan Referrals: NO,PCP [Primary Care Provider] -
[2016-07-19] MEDS: Thiamine (B-1) 100 MG, Folic Acid 1 MG, MVI, adult with vitamin K 10 ML in 0.9 % Sodi... IVPB SCH ×2 (00:11→23:35)
[2016-07-19 03:37] LABS: Basophils % 0.7 %; Eosinophils # 0.1 K/mcL (0.0-0.6); Eosinophils % 4.1 %; Hematocrit 33.9 % (37.5-50.1); Hemoglobin 11.5 g/dL (12.9-16.9); Immature Granulocytes % 0.7 % (0-4); Lymphocytes # 0.9 K/mcL (0.6-4.6); Mean Corpuscular HGB Conc 33.9 g/dL (31.6-35.5); Mean Corpuscular Hemoglobin 31.9 pg (28.0-33.3); Mean Corpuscular Volume 94.2 fL (83.0-100.0); Monocytes # 0.5 K/mcL (0.0-1.3); Neutrophils # 1.4 K/mcL (1.6-8.9); Platelet Count 129 K/mcL (140-400); Red Cell Distribution Width 15.9 % (11.5-14.5); Segmented Neutrophils % 48.5 %
[2016-07-19 03:52] LABS: BUN/Creatinine Ratio 9 (6-26); Blood Urea Nitrogen 6 mg/dL (8-26); Calcium 8.4 mg/dL (8.6-10.8); Carbon Dioxide 26 mEq/L (19-29); Chloride 105 mEq/L (98-109); Glucose 78 mg/dL (70-99); Magnesium 1.4 mg/dL (1.6-2.6); Osmolality,Calculated 286 (280-300); Phosphorous 4.1 mg/dL (2.3-4.7); Potassium 3.3 mEq/L (3.5-4.5); Sodium 140 mEq/L (136-145); eGFR For African Americans > 60 (> 60); eGFR For Non-African Americans > 60 (> 60)
[2016-07-19] MEDS: *HR* Heparin 5,000 UNIT/ML VIAL SQ SCH ×2 (05:57→18:25)
[2016-07-19] MEDS ORDERED: Magnesium Sulfate 2 GM in D5% in Water 100 ML IVPB ONE (07:33)
[2016-07-19] MEDS: Pantoprazole 40 MG VIAL IVP SCH (08:08)
--- NOTE | 2016-07-19 10:43 | Internal Med Progress Note ---
Date of Encounter: 07/19/16 Time of Encounter: 10:40 - Assessment and plan (1) Wernickes encephalopathy Current Visit: Yes Status: Acute Assessment and plan: Concern for Wernicke's encephalopathy given alcohol abuse history and mental status CIWA scores significantly improved will continue CIWA monitoring and Diazepam as per CIWA protocol continue Thiamine supplementation Folic acid pt tolerating PO intake well (2) Alcohol withdrawal Current Visit: Yes Status: Acute Assessment and plan: Significantly improved will obtain PT eval and initiate discharge planning Qualifiers: Complication of substance-induced condition: with delirium Qualified Code(s ): F10.231 - Alcohol dependence with withdrawal delirium (3) Alcoholism Current Visit: Yes Status: Chronic (4) UTI (urinary tract infection) Current Visit: Yes Status: Acute Assessment and plan: continue Ceftriaxone for a total of 5 days (Day 3/5) Qualifiers: Urinary tract infection type: site unspecified Hematuria presence: with hematuria Qualified Code(s): N39.0 - Urinary tract infection, site not specified; R31.9 - Hematuria, unspecified (5) Electrolyte abnormality Current Visit: Yes Status: Acute Assessment and plan: Hypokalemia and Hypomagnesemia K and Mg supplemented continue to monitor electrolytes and replace as needed (6) DVT prophylaxis Current Visit: Yes Status: Acute Assessment and plan: Heparin SQ - Subjective Interval history: Patient seen and examined at bedside. Mental status significantly improved from previous day. AAO x 3 but noted to have mild tremors in bilateral extremities. Reports of feeling well. No overnight issues were reported. Sitter discontinued CIWA protocol scoring has been significantly reduced school social worker eval noted - Constitutional Vitals: Temp Pulse Resp BP Pulse Ox 97.9 F 75 16 124/80 99 07/19/16 07:40 07/19/16 07:40 07/19/16 07:40 07/19/16 07:40 07/19/16 07:40 General appearance: Present: A&O X 3, no acute distress (overweight), answers questions appropriately - Head Head exam: Present: atraumatic, normocephalic - Eye Eye exam: Present: normal appearance, conjuntiva pink, sclera anicteric - Respiratory Respiratory exam: Present: CTAB. Absent: accessory muscle use, rales, rhonchi, wheezes - Cardiovascular Cardiovascular exam: Present: RRR, +S1, +S2. Absent: diastolic murmur, gallop, rubs, systolic murmur - GI/Abdominal GI/Abdominal exam: Present: normal bowel sounds, soft, no peritoneal signs. Absent: distended, tenderness - Extremities Exam Extremities exam: Present: warm, radial pulses palpable and symetrical. Absent : calf tenderness, cyanotic, pedal edema - Neurological Exam Neurological exam: Present: alert, oriented X3 - Psychiatric Psychiatric exam: Present: normal mood Internal Medicine: Result - Labs CBC & Chem 7: 07/19/16 03:09 07/19/16 03:09 Labs: Short CBC 07/19/16 Range/Units 03:09 WBC 2.9 L (4.3-11.1) K/mcL Hgb 11.5 L (12.9-16.9) g/dL Hct 33.9 L (37.5-50.1) % Plt Count 129 L (140-400) K/mcL Neutrophils # 1.4 L (1.6-8.9) K/mcL BMP 07/19/16 03:09 Sodium 140 Potassium 3.3 L Chloride 105 Carbon Dioxide 26 BUN 6 L Creatinine 0.64 L Glucose 78 Calcium 8.4 L - ABG Interpretation ABG results: PT/INR, D-dimer PT 11.6 Seconds (9.4-12.1) 07/17/16 04:53 Consult Discharge Plan - Plan Referrals: NO,PCP [Primary Care Provider] -
[2016-07-20 05:15] LABS: Basophils % 1.3 %; Eosinophils # 0.2 K/mcL (0.0-0.6); Eosinophils % 5.1 %; Hematocrit 34.3 % (37.5-50.1); Hemoglobin 11.4 g/dL (12.9-16.9); Immature Granulocytes % 0.7 % (0-4); Lymphocytes # 1.2 K/mcL (0.6-4.6); Lymphocytes % 39.7 %; Mean Corpuscular HGB Conc 33.2 g/dL (31.6-35.5); Mean Corpuscular Hemoglobin 31.9 pg (28.0-33.3); Mean Corpuscular Volume 96.1 fL (83.0-100.0); Mean Platelet Volume 9.7 fL (9.4-12.4); Monocytes # 0.6 K/mcL (0.0-1.3); Monocytes % 18.5 %; Platelet Count 168 K/mcL (140-400); Red Blood Count 3.57 M/mcL (4.19-5.50); Red Cell Distribution Width 16.2 % (11.5-14.5); Segmented Neutrophils % 34.7 %
[2016-07-20 05:31] LABS: BUN/Creatinine Ratio 7 (6-26); Calcium 8.6 mg/dL (8.6-10.8); Carbon Dioxide 29 mEq/L (19-29); Chloride 105 mEq/L (98-109); Glucose 85 mg/dL (70-99); Magnesium 1.7 mg/dL (1.6-2.6); Osmolality,Calculated 288 (280-300); Phosphorous 3.5 mg/dL (2.3-4.7); Potassium 3.6 mEq/L (3.5-4.5); Sodium 141 mEq/L (136-145); eGFR For African Americans > 60 (> 60); eGFR For Non-African Americans > 60 (> 60)
[2016-07-20] MEDS: *HR* Heparin 5,000 UNIT/ML VIAL SQ SCH (05:31)
[2016-07-20 05:32] LABS: Blood Urea Nitrogen 4 mg/dL (8-26)
[2016-07-20 05:42] LABS: Platelet Estimate Normal (Normal)
--- NOTE | 2016-07-20 07:22 | Electrocardiograph Report ---
[place] [id number] Test Date: 2016-07-16 Pat Name: Jeovanny Pulliam Department: 105 Room: 2A32 Gender: M Telecommunications Consultant: [facility] : 1965 Requested By: Salomón Roblero Order Number: [id number] Reading MD: Leo Carmnoa MD Measurements Intervals [place] Rate: 110 P: 71 W[place]: 178 QRS: 62 QRSD: 113 T: 35 QT: 339 QTc: 404 Interpretive Statements SINUS TACHYCARDIA BASELINE ARTIFACT Electronically Signed On 07-20-2016 7:20:56 EDT by Leo Carmona MD
[2016-07-20] MEDS: Pantoprazole 40 MG VIAL IVP SCH (09:39)
[2016-07-20 11:12] VITALS: BP 143/92
--- NOTE | 2016-07-20 11:45 | Discharge Summary ---
Date of Encounter: 07/20/16 Time of Encounter: 09:05 - Discharge Diagnosis (1) Wernickes encephalopathy Priority: Primary Status: Resolved (2) Alcohol withdrawal Priority: Primary Status: Acute Qualifiers: Complication of substance-induced condition: with delirium Qualified Code(s ): F10.231 - Alcohol dependence with withdrawal delirium (3) Alcoholism Priority: Secondary Status: Chronic (4) UTI (urinary tract infection) Priority: Primary Status: Acute Qualifiers: Urinary tract infection type: site unspecified Hematuria presence: with hematuria Qualified Code(s): N39.0 - Urinary tract infection, site not specified; R31.9 - Hematuria, unspecified (5) Electrolyte abnormality Priority: Secondary Status: Acute (6) DVT prophylaxis Priority: Secondary Status: Acute - Discharge Medications Prescriptions: Ciprofloxacin/Ciprofloxa HCl [Cipro Xr 1,000 mg Tablet] 1,000 mg PO DAILY #1 tbmp.24hr Folic Acid 1 mg PO DAILY #30 tablet Thiamine (B-1) [Vitamin B-1] 100 mg PO DAILY #30 tablet Home Medications: Multivitamin [Multi-Day Vitamins] 1 each PO DAILY 07/16/16 [History] Ciprofloxacin/Ciprofloxa HCl [Cipro Xr 1,000 mg Tablet] 1,000 mg PO DAILY #1 tbmp.24hr 07/20/16 [Rx] Folic Acid 1 mg PO DAILY #30 tablet 07/20/16 [Rx] Thiamine (B-1) [Vitamin B-1] 100 mg PO DAILY #30 tablet 07/20/16 [Rx] Allergies/Adverse Reactions: Allergies lorazepam [From Ativan] Allergy (Verified 11/27/14 00:59) See Comments reverse side affects Date of admission: 07/17/16 03:47 Primary care physician: PCP NO Consults: 07/17/16 08:49 Consult to Psychiatry [CONS] Routine Consulting Provider: Psychiatry Kya Reason for Consult: alcohol withdrawal. He was banging his head on table prior to arrival. Concern for suicide Call Completed: No 07/19/16 10:43 Consult to Physical Therapy [CONS] Routine Comment: Evaluate, develop and implement POC Reason for Consult: discharge disposition Discharging clinician: Roselyn Browne Anticipated date of discharge: 07/20/16 - Patient Status Disposition: Home, Self-Care Condition: Good Functional capacity at discharge: independent ambulation Overall status at discharge: patient is back to baseline - Discharge Instructions Follow Up With: Jordin Leger MD [Non-Partnered Physician] - 07/26/16 10:00 am Additional Instructions: Please follow up with your primary care physician within one week after our discharge from the hospital. Please continue Ciprofloxacin for one more day as prescribed. Please continue to take folic acid and thiamine as prescribed. Alcohol abstinence is highly recommended and advised. Please resume all your other home medications as prescribed by your primary care physician. - Diet and Activity Activity: resume usual activities as tolerated Diet: low salt diet Hospital course: Mr. Pulliam is a 51 year old male with PMH of alcohol abuse who was admitted for management of altered mental status secondary to alcohol abuse. He was also found to have UTI upon his admission. pt was started on IV fluids, thiamine, and folic acid. He was noted to have active alcohol withdrawals and was closely monitored with the CIWA protocol. Patient initially required higher doses of Diazepam. He is currently out of his withdrawal phase and mental status back to baseline. He is AAO x 3 and was seen by a social work specialist for discharge disposition and rehab sources. Pt stated that he already has all the resources he needs and has done this in the past and is going to abstain from any alcohol use after his discharge. He is ambulating well around the wards without any discomfort. He is hemodynamically stable and will be discharged to home with follow up with primary care physician. Pt demonstrates understanding of his diagnosis and agrees with the discharge care and plan. - Time Spent with Patient Total time spent providing and/or coordinating discharge services: Less than 30 minutes - Constitutional Vitals: Temp Pulse Resp BP Pulse Ox 97.9 F 61 16 143/92 97 07/20/16 11:09 07/20/16 11:09 07/20/16 11:09 07/20/16 11:07/20/16 11:09 General appearance: Present: A&O X 3, no acute distress (overweight), answers questions appropriately - Head Head exam: Present: atraumatic, normocephalic - Eye Eye exam: Present: normal appearance, conjuntiva pink, sclera anicteric - Respiratory Respiratory exam: Present: CTAB. Absent: accessory muscle use, rales, rhonchi, wheezes - Cardiovascular Cardiovascular exam: Present: RRR, +S1, +S2. Absent: diastolic murmur, gallop, rubs, systolic murmur - GI/Abdominal GI/Abdominal exam: Present: normal bowel sounds, soft, no peritoneal signs. Absent: distended, tenderness - Extremities Exam Extremities exam: Present: warm, radial pulses palpable and symetrical. Absent : calf tenderness, cyanotic, pedal edema - Neurological Exam Neurological exam: Present: alert, oriented X3 - Psychiatric Psychiatric exam: Present: normal affect, normal mood
== END 2016-07-20 12:15 | disposition home or self-care (01) | DRG 775 ==
LOC: EMEROO 20:24 → 2ANU 20:24
PROVIDERS: ADMIT Hospitalist; ATTEND Registered Nurse

== ENCOUNTER 2016-12-26 19:06 | Observation (INO) ==
[2016-12-26] MEDS ORDERED: 0.9 % Sodium Chloride 1,000 ML IVC ONE (19:16)
--- NOTE | 2016-12-26 19:16 | Emergency Department Note ---
Disposition Clinical Impression: Altered mental status Qualifiers: Altered mental status type: unspecified Qualified Code(s): R41.82 - Altered mental status, unspecified UTI (urinary tract infection) Qualifiers: Urinary tract infection type: site unspecified Hematuria presence: with hematuria Qualified Code(s): N39.0 - Urinary tract infection, site not specified Disposition: Admitted As Inpatient Condition: Good Referrals: Unassigned,Provider [Primary Care Provider] - Forms: ED Satisfaction Letter Time of Disposition: 20:35 Altered Mental Status HPI - General Chief Complaint: ED Altered Mental Status Stated Complaint: AMS/Non-Verbal Time Seen by Provider: 12/26/16 19:12 Source: EMS Mode of arrival: EMS Limitations: altered mental status Nursing Notes Reviewed: Yes Vital Signs Reviewed: Yes - History of Present Illness HPI Narrative: Patient presents to the emergency department via EMS due to altered mental status. Patient [place] the park and police were called. Upon arrival police called EMS due to altered mental status and combative behavior. Apparently he tried to swing at one of the officers and EMS crew. Patient presents alert but nonverbal. He answers no questions. He will not follow commands. He has no obvious external bruising or traumatic injuries apparent. I do not visualize any track downey. There is no smell of alcohol. MD complaint: altered mental status Onset (ago): unknown Context: unknown Associated symptoms: Reports: other - Related Data Allergies Allergy/AdvReac Type Severity Reaction Status Date / Time No Known Allergies Allergy Verified 12/26/16 19:08 Limitations: ROS unobtainable due to patients medical condition Past Medical History - Past Medical History Source: unable to obtain Medical history: Reports: no medical history - Social History Smoking Status: Unknown if ever smoked Physical Exam - General Limitations: altered mental status General appearance: alert, in no apparent distress - Head Head exam: atraumatic, normocephalic, normal inspection - Eye Eye exam: Present: normal appearance, PERRL, EOMI - ENT ENT exam: normal exam - Neck Neck exam: Present: normal inspection, full ROM. Absent: meningismus - Chest Chest inspection: Present: normal inspection, symmetric chest wall rise - Respiratory Respiratory exam: Present: normal lung sounds bilaterally - Cardiovascular Cardiovascular exam: Present: normal rhythm, tachycardia, normal heart sounds - Abdominal Exam Abdominal exam: Present: soft. Absent: distention, rigidity - Extremities Exam Extremities exam: Present: normal inspection - Expanded Upper Extremity Exam Shoulder exam: Present: normal inspection Arm exam: Present: normal inspection Elbow exam: Present: normal inspection Forearm/Wrist exam: Present: normal inspection Hand exam: Present: normal inspection - Expanded Lower Extremity Exam Hip/Pelvis exam: Present: normal inspection Upper leg exam: Present: normal inspection Knee exam: Present: normal inspection Lower leg exam: Present: normal inspection Ankle exam: Present: normal inspection Foot/toe exam: Present: normal inspection - Back Exam Back exam: Present: normal inspection - Neurological Exam Neurological exam: Present: alert, other (Alert. Opens eyes spontaneously. Nonverbal. He does not follow commands.) - Expanded Neurological Exam Coma Scale Eye Opening: Spontaneous Coma Scale Motor Response: Withdraws to Pain Coma Scale Verbal Response: None Coma Scale Total: 9 - Skin Skin exam: Present: warm, dry, intact Course Course Narrative: Patient seen and examined. There are no external signs of trauma. GCS of 9. He is maintaining his airway. Noted to be slightly hypertensive and tachycardic here. He demonstrates no focal findings on exam. He has no identification with him. We will obtain a head CT as well as EKG, chest x-ray and labs including UDS, CK. - Reevaluation(s) Reevaluation #1: Patient reports his name is Rakesh Chase and he lives in [facility]. He states he drove here from [employer]. The last memory he had was last night eating [employer]. He denies any current complaints. He has no idea why he is here and states he was just woken up. Vital Signs Temperature 99.4 F 12/26/16 19:08 Pulse Rate 111 12/26/16 19:08 Respiratory Rate 20 12/26/16 19:08 Blood Pressure 138/110 12/26/16 19:08 O2 Sat by Pulse Oximetry 97 12/26/16 19:08 Temperature 99.4 F 12/26/16 19:08 Pulse Rate 82 12/26/16 20:37 Respiratory Rate 18 12/26/16 20:37 Blood Pressure 132/95 12/26/16 20:37 O2 Sat by Pulse Oximetry 98 12/26/16 20:37 Oxygen Delivery Oxygen Delivery Room Air Altered Mental Status - MDM Narrative Medical decision making narrative: Patient presents to the emergency department due to unresponsiveness. [place] the park. Initially combative. He presented nonverbal. During his ED stay he is now conversational and has no idea why he is here. Report is from [place]. I suspect possibly dissociative fugue. However also concern for medical issues including syncopal episode or altered mental status. Head CT unremarkable. Labs and urinalysis as well as UDS reviewed showing a UTI. Patient given a liter of fluids and Rocephin. Admitted to the hospitalist service for altered mental status, UTI. - Lab Data Lab results reviewed: Yes I reviewed the patient's lab results. Result diagrams: 12/26/16 19:12 12/26/16 Unknown Lab Results 12/26/16 12/26/16 12/26/16 Range/Units 19:12 19:12 19:28 WBC 7.0 L (9.0-38.0) K/mcL RBC 4.00 (4.00-6.60) M/mcL Hgb 13.0 L (14.5-22.5) g/dL Hct 38.2 L (45.0-67.0) % MCV 95.5 (95.0-121.0) fL MCH 32.5 (31.0-37.0) pg MCHC 34.0 (29.0-37.0) g/dL RDW 13.7 (11.5-14.5) % Plt Count 117 L (150-600) K/mcL MPV 9.7 (9.4-12.4) fL Immature Gran % 0.4 (0-4) % Seg Neutrophils % 76.3 % Lymphocytes % 14.6 % Monocytes % 7.5 % Eosinophils % 0.9 % Basophils % 0.3 % Neutrophils # 5.4 (5.0-28.0) K/mcL Lymphocytes # 1.0 (0.6-4.6) K/mcL Monocytes # 0.5 (0.0-1.3) K/mcL Eosinophils # 0.1 (0.0-0.6) K/mcL Basophils # 0.0 (0.0-0.2) K/mcL Immature Plt Fraction 6.0 (1.1-6.1) % PT (9.4-12.1) Seconds INR APTT (26.0-36.0) Seconds Sodium (136-145) mEq/L Potassium (3.5-4.5) mEq/L Chloride (98-109) mEq/L Carbon Dioxide (19-29) mEq/L BUN (8-26) mg/dL Creatinine (0.72-1.25) mg/dL Est GFR ( Amer) (> 60) Est GFR (Non-Af Amer) (> 60) BUN/Creatinine Ratio (6-26) Glucose (70-99) mg/dL POC Glucose 110 H (58-89) Calculated Osmolality (280-300) Calcium (8.6-10.8) mg/dL Total Bilirubin (0.2-1.2) mg/dL Direct Bilirubin (0.0-0.5) mg/dL Indirect Bilirubin (0.0-1.2) mg/dL AST (5-34) Units/L ALT (0-55) Units/L Alkaline Phosphatase (38-126) Units/L Ammonia (18-72) mcmol/L Creatine Kinase (30-200) Units/L Troponin I (0-0.03) ng/mL Serum Total Protein (6.0-8.3) g/dL Albumin (3.5-5.0) g/dL Globulin (2.4-3.5) g/dL Albumin/Globulin Ratio (1.1-2.2) TSH (0.350-4.840) mcIU/mL Urine Color Loree A (Yellow) Urine Clarity Cloudy A (Clear) Urine pH 5.5 (5.0-8.0) pH Units Ur Specific [place] 1.028 H (1.010-1.025) Urine Protein 100 H (Neg-Trace) mg/dL Urine Glucose (UA) Normal (Normal) mg/dL Urine Ketones 15 H (Negative) mg/dL Urine Blood Negative (Negative) Urine Nitrite Positive A (Negative) Urine Bilirubin Large H (Negative) Urine Urobilinogen Normal (Normal) mg/dL Ur Leukocyte Esterase Small H (Negative) Urine Microscopic RBC 5-15 H (0-3) per hpf Urine Microscopic WBC 15-30 H (0-3) per hpf Ur Squamous Epith Cells Many H (None-Few) per lpf Ur Renal Epithelial Cell Few (None-Few) per hpf Urine Bacteria Many H (None-Few) per hpf Hyaline Casts Many H (None-Few) per lpf Urine Mucus Many H (Few) Urine Yeast Few H (None Seen) per hpf Ur Culture Indicated? YES A (NO) Urine Opiates Screen (Lfepjn=182) ng/mL Ur Barbiturates Screen (Rvbexz=548) ng/mL Ur Phencyclidine Scrn (Cutoff=25) ng/mL Ur Amphetamines Screen (Mdmhmj=4917) ng/mL U Benzodiazepines Scrn (Mvywaf=557) ng/mL Urine Cocaine Screen (Cutoff= 300) ng/mL U Marijuana (THC) Screen (Cutoff = 50) ng/mL Ethyl Alcohol (0-10) mg/dL 12/26/16 12/26/16 12/26/16 Range/Units 19:28 Unknown Unknown WBC (9.0-38.0) K/mcL RBC (4.00-6.60) M/mcL Hgb (14.5-22.5) g/dL Hct (45.0-67.0) % MCV (95.0-121.0) fL MCH (31.0-37.0) pg MCHC (29.0-37.0) g/dL RDW (11.5-14.5) % Plt Count (150-600) K/mcL MPV (9.4-12.4) fL Immature Gran % (0-4) % Seg Neutrophils % % Lymphocytes % % Monocytes % % Eosinophils % % Basophils % % Neutrophils # (5.0-28.0) K/mcL Lymphocytes # (0.6-4.6) K/mcL Monocytes # (0.0-1.3) K/mcL Eosinophils # (0.0-0.6) K/mcL Basophils # (0.0-0.2) K/mcL Immature Plt Fraction (1.1-6.1) % PT 12.1 (9.4-12.1) Seconds INR 1.1 APTT 29.6 (26.0-36.0) Seconds Sodium 139 (136-145) mEq/L Potassium 3.0 L (3.5-4.5) mEq/L Chloride 101 (98-109) mEq/L Carbon Dioxide 23 (19-29) mEq/L BUN 19 (8-26) mg/dL Creatinine 0.97 (0.72-1.25) mg/dL Est GFR ( Amer) > 60 (> 60) Est GFR (Non-Af Amer) > 60 (> 60) BUN/Creatinine Ratio 20 (6-26) Glucose 106 H (70-99) mg/dL POC Glucose (58-89) Calculated Osmolality 291 (280-300) Calcium 10.4 (8.6-10.8) mg/dL Total Bilirubin 1.1 (0.2-1.2) mg/dL Direct Bilirubin 0.5 (0.0-0.5) mg/dL Indirect Bilirubin 0.6 (0.0-1.2) mg/dL AST 59 H (5-34) Units/L ALT 51 (0-55) Units/L Alkaline Phosphatase 74 (38-126) Units/L Ammonia (18-72) mcmol/L Creatine Kinase 548 H (30-200) Units/L Troponin I (0-0.03) ng/mL Serum Total Protein 7.3 (6.0-8.3) g/dL Albumin 4.4 (3.5-5.0) g/dL Globulin 2.9 (2.4-3.5) g/dL Albumin/Globulin Ratio 1.5 (1.1-2.2) TSH (0.350-4.840) mcIU/mL Urine Color (Yellow) Urine Clarity (Clear) Urine pH (5.0-8.0) pH Units Ur Specific [place] (1.010-1.025) Urine Protein (Neg-Trace) mg/dL Urine Glucose (UA) (Normal) mg/dL Urine Ketones (Negative) mg/dL Urine Blood (Negative) Urine Nitrite (Negative) Urine Bilirubin (Negative) Urine Urobilinogen (Normal) mg/dL Ur Leukocyte Esterase (Negative) Urine Microscopic RBC (0-3) per hpf Urine Microscopic WBC (0-3) per hpf Ur Squamous Epith Cells (None-Few) per lpf Ur Renal Epithelial Cell (None-Few) per hpf Urine Bacteria (None-Few) per hpf Hyaline Casts (None-Few) per lpf Urine Mucus (Few) Urine Yeast (None Seen) per hpf Ur Culture Indicated? (NO) Urine Opiates Screen Negative (Fpater=247) ng/mL Ur Barbiturates Screen Negative (Kztadt=495) ng/mL Ur Phencyclidine Scrn Negative (Cutoff=25) ng/mL Ur Amphetamines Screen Negative (Csliac=3426) ng/mL U Benzodiazepines Scrn Negative (Yewmuo=668) ng/mL Urine Cocaine Screen Negative (Cutoff= 300) ng/mL U Marijuana (THC) Screen Negative (Cutoff = 50) ng/mL Ethyl Alcohol < 10 (0-10) mg/dL 12/26/16 12/26/16 12/26/16 Range/Units Unknown Unknown Unknown WBC (9.0-38.0) K/mcL RBC (4.00-6.60) M/mcL Hgb (14.5-22.5) g/dL Hct (45.0-67.0) % MCV (95.0-121.0) fL MCH (31.0-37.0) pg MCHC (29.0-37.0) g/dL RDW (11.5-14.5) % Plt Count (150-600) K/mcL MPV (9.4-12.4) fL Immature Gran % (0-4) % Seg Neutrophils % % Lymphocytes % % Monocytes % % Eosinophils % % Basophils % % Neutrophils # (5.0-28.0) K/mcL Lymphocytes # (0.6-4.6) K/mcL Monocytes # (0.0-1.3) K/mcL Eosinophils # (0.0-0.6) K/mcL Basophils # (0.0-0.2) K/mcL Immature Plt Fraction (1.1-6.1) % PT (9.4-12.1) Seconds INR APTT (26.0-36.0) Seconds Sodium (136-145) mEq/L Potassium (3.5-4.5) mEq/L Chloride (98-109) mEq/L Carbon Dioxide (19-29) mEq/L BUN (8-26) mg/dL Creatinine (0.72-1.25) mg/dL Est GFR ( Amer) (> 60) Est GFR (Non-Af Amer) (> 60) BUN/Creatinine Ratio (6-26) Glucose (70-99) mg/dL POC Glucose (58-89) Calculated Osmolality (280-300) Calcium (8.6-10.8) mg/dL Total Bilirubin (0.2-1.2) mg/dL Direct Bilirubin (0.0-0.5) mg/dL Indirect Bilirubin (0.0-1.2) mg/dL AST (5-34) Units/L ALT (0-55) Units/L Alkaline Phosphatase (38-126) Units/L Ammonia 34 (18-72) mcmol/L Creatine Kinase (30-200) Units/L Troponin I 0.02 (0-0.03) ng/mL Serum Total Protein (6.0-8.3) g/dL Albumin (3.5-5.0) g/dL Globulin (2.4-3.5) g/dL Albumin/Globulin Ratio (1.1-2.2) TSH 1.180 (0.350-4.840) mcIU/mL Urine Color (Yellow) Urine Clarity (Clear) Urine pH (5.0-8.0) pH Units Ur Specific [place] (1.010-1.025) Urine Protein (Neg-Trace) mg/dL Urine Glucose (UA) (Normal) mg/dL Urine Ketones (Negative) mg/dL Urine Blood (Negative) Urine Nitrite (Negative) Urine Bilirubin (Negative) Urine Urobilinogen (Normal) mg/dL Ur Leukocyte Esterase (Negative) Urine Microscopic RBC (0-3) per hpf Urine Microscopic WBC (0-3) per hpf Ur Squamous Epith Cells (None-Few) per lpf Ur Renal Epithelial Cell (None-Few) per hpf Urine Bacteria (None-Few) per hpf Hyaline Casts (None-Few) per lpf Urine Mucus (Few) Urine Yeast (None Seen) per hpf Ur Culture Indicated? (NO) Urine Opiates Screen (Rwjykj=636) ng/mL Ur Barbiturates Screen (Rwlurq=388) ng/mL Ur Phencyclidine Scrn (Cutoff=25) ng/mL Ur Amphetamines Screen (Uglzqj=2472) ng/mL U Benzodiazepines Scrn (Lbfmbx=292) ng/mL Urine Cocaine Screen (Cutoff= 300) ng/mL U Marijuana (THC) Screen (Cutoff = 50) ng/mL Ethyl Alcohol (0-10) mg/dL - Radiology Data Radiology results reviewed: Yes I reviewed the patient's radiology results. Chest X-Ray 12/26/16 19:12 IMPRESSION: No acute cardiopulmonary abnormality. D/ / Sammy Montano MD / Sammy Montano MD Interpreting Provider: Sammy Montano MD - EKG Data EKG attestation: Yes I reviewed and interpreted this EKG. EKG results narrative: EKG demonstrates normal sinus rhythm with a rate of 90 bpm. Normal axis. Normal intervals. Normal R-wave progression. No gross ST elevations or depressions. No acute ischemic findings. Unable to find previous EKG for comparison. Peña - Peña Situation: Demographics, MOA Background: Presenting Complaint, Relevant PMH, Meds, & Allergies Assessment: Vital Signs, Course and respsone to treatment, Exam Concerns, Patient/Family Expectation, Pertinant Lab Results Recommendation: Barrier(s) to disposition, Recommendation based on pending studies, treatments, or consults Peña Report Given to: Dr. Guerita Pompa Repor Time: 20:35 (requests tele and blood cultures) Attestation Statement - Attestation Attestation: I, Jean Claude Cole MD, personally evaluated this patient and discussed their management with the resident physician. I reviewed the resident's note and agree with the documented findings, medical decision making, and plan of care. Adult male presents to the emergency department by EMS after he was found [place] the park and police were called to the scene. Patient was alert but a basic and would not follow commands. Police called EMS patient was brought here. No identification on the patient. On arrival here the patient is alert but is nonverbal and does not follow commands. On examination patient is a well-developed well-nourished male in no acute distress. He is alert but is nonverbal and will not follow commands. There is no cyanosis or diaphoresis. No obvious signs of trauma. No scalp tenderness or hematomas or abrasions. Neck is supple and nontender with full range of motion. No lymphadenopathy. No meningismus. Chest is nontender to palpation. Breath sounds are clear and equal bilaterally. Heart regular rate and rhythm. Abdomen soft with normal bowel sounds and no apparent tenderness. No tympany or distention. No apparent CVA tenderness. Patient is able to move all 4 extremities with no obvious focal deficits noted. Labs reviewed and unremarkable other than a urinary tract infection. Head CT negative. Chest x-ray negative. EKG normal. The hospitalist, Dr. Dexter, was consulted and accepted admission of the patient.
[2016-12-26 19:27] LABS: Basophils % 0.3 %; Eosinophils # 0.1 K/mcL (0.0-0.6); Eosinophils % 0.9 %; Hematocrit 38.2 % (45.0-67.0); Immature Granulocytes % 0.4 % (0-4); Lymphocytes % 14.6 %; Mean Corpuscular Hemoglobin 32.5 pg (31.0-37.0); Mean Corpuscular Volume 95.5 fL (95.0-121.0); Mean Platelet Volume 9.7 fL (9.4-12.4); Monocytes # 0.5 K/mcL (0.0-1.3); Monocytes % 7.5 %; Neutrophils # 5.4 K/mcL (5.0-28.0); Platelet Count 117 K/mcL (150-600); Red Cell Distribution Width 13.7 % (11.5-14.5); Segmented Neutrophils % 76.3 %
[2016-12-26 19:35] LABS: Bilirubin,Urine Large (Negative); Blood,Urine Negative (Negative); Glucose,Urine (UA) Normal (Normal); Ketones,Urine 15 mg/dL (Negative); Leukocyte Esterase,Urine Small (Negative); Nitrite,Urine Positive (Negative); PH,Urine 5.5 pH Units (5.0-8.0); Protein,Urine 100 mg/dL (Neg-Trace); Specific Gravity,Urine 1.028 (1.010-1.025); Urobilinogen,Urine Normal (Normal)
[2016-12-26 19:36] LABS: Squamous Epithelial Cell,Urine Many per lpf (None-Few); WBC,Urine 15-30 per hpf (0-3)
[2016-12-26 19:39] LABS: Clarity,Urine Cloudy (Clear); Color,Urine Amber (Yellow)
[2016-12-26 19:40] LABS: Alanine Aminotransferase 51 Units/L (0-55); Albumin 4.4 g/dL (3.5-5.0); Albumin/Globulin Ratio 1.5 (1.1-2.2); Alkaline Phosphatase 74 Units/L (38-126); Aspartate Amino Transferase 59 Units/L (5-34); BUN/Creatinine Ratio 20 (6-26); Bilirubin,Direct 0.5 mg/dL (0.0-0.5); Bilirubin,Indirect 0.6 mg/dL (0.0-1.2); Bilirubin,Total 1.1 mg/dL (0.2-1.2); Blood Urea Nitrogen 19 mg/dL (8-26); Calcium 10.4 mg/dL (8.6-10.8); Carbon Dioxide 23 mEq/L (19-29); Chloride 101 mEq/L (98-109); Creatine Kinase 548 Units/L (30-200); Globulin 2.9 g/dL (2.4-3.5); Glucose 106 mg/dL (70-99); Osmolality,Calculated 291 (280-300); Sodium 139 mEq/L (136-145); Total Protein 7.3 g/dL (6.0-8.3); eGFR For African Americans > 60 (> 60); eGFR For Non-African Americans > 60 (> 60)
[2016-12-26 19:41] LABS: Amphetamine Screen,Urine Negative ng/mL (Cutoff=1000); Barbiturate Screen,Urine Negative ng/mL (Cutoff=200); Benzodiazepines Screen,Urine Negative ng/mL (Cutoff=200); Cannabinoid Screen,Urine Negative ng/mL (Cutoff = 50); Cocaine Screen,Urine Negative ng/mL (Cutoff= 300); Opiate Screen,Urine Negative ng/mL (Cutoff=300); Phencyclidine Screen,Urine Negative ng/mL (Cutoff=25)
[2016-12-26 19:49] LABS: Bacteria,Urine Many per hpf (None-Few); Hyaline Casts,Urine Many per lpf (None-Few); Mucus,Urine Many (Few); Renal Epithelial Cells,Urine Few per hpf (None-Few)
[2016-12-26 19:50] LABS: Ethanol < 10 mg/dL (0-10)
[2016-12-26 19:51] LABS: Yeast,Urine Few per hpf (None Seen)
[2016-12-26 20:02] LABS: INR 1.1; Prothrombin Time 12.1 Seconds (9.4-12.1)
[2016-12-26] MEDS ORDERED: cefTRIAXone 1,000 MG in Water for inj. (sterile) 10 ML IVP ONE (20:04)
[2016-12-26 20:05] LABS: Activated Partial Thrombo Time 29.6 Seconds (26.0-36.0)
[2016-12-26] MEDS ORDERED: *HR* Labetalol 20 MG/4 ML SYRINGE IVP ONE (20:14)
[2016-12-26] MEDS ORDERED: Acetaminophen 325 MG TABLET PO PRN (21:06)
[2016-12-26] MEDS ORDERED: Naloxone 0.4 MG/ML INJ IVP PRN (21:06)
[2016-12-26] MEDS ORDERED: Ondansetron 4 MG/2 ML VIAL IVP PRN (21:06)
[2016-12-26] MEDS ORDERED: *HR* Morphine 2 MG/ML SYRINGE IVP PRN (21:06)
[2016-12-26] MEDS ORDERED: Ipratropium/Albuterol Neb 3 ML IH PRN (21:11)
--- NOTE | 2016-12-26 21:25 | Internal Med History&Physical ---
Date of Encounter: 12/26/16 Time of Encounter: 21:21 Assessment and Plan (1) Dissociative amnesia with dissociative fugue Current visit: Yes Status: Acute Health and mental status with possible dissociative amnesia CT scan of the head was normal, order an MRI of the brain Check ammonia. Psychiatry will be consulted and we will consider neurology Urine tox screen is negative Omeprazole for GI prophylaxis and subcutaneous heparin for DVT prophylaxis. The patient will be admitted for observation. Full code. Time spent on this admission 40 minutes (2) Hypokalemia Current visit: Yes Status: Acute Replete as needed (3) Transaminitis Current visit: Yes Status: Acute Check right upper quadrant ultrasound Hepatitis panel (4) Altered mental status Current visit: Yes Status: Acute Qualifiers: Altered mental status type: unspecified Qualified Code(s): R41.82 - Altered mental status, unspecified (5) UTI (urinary tract infection) Current visit: Yes Status: Acute Possible metabolic encephalopathy likely secondary to UTI Cultures ordered Rocephin Qualifiers: Urinary tract infection type: site unspecified Hematuria presence: with hematuria Qualified Code(s): N39.0 - Urinary tract infection, site not specified; R31.9 - Hematuria, unspecified; R31.9 - Hematuria, unspecified (6) Rhabdomyolysis Current visit: Yes Status: Acute IV fluids Qualifiers: Rhabdomyolysis type: non-traumatic Qualified Code(s): M62.82 - Rhabdomyolysis Internal Medicine - H&P: HPI Chief complaint: Altered mental status Admitted From: Emergency Dept History of present illness: Mr. Aceves unknown age, the patient initially said he was 38 years old and then he said he was born in 05/25/1960 cannot remember his name or anything about his past. He told one of the ER staff that his name was Rakesh Acuna came from [place], after that he told me she was coming from [place] does not remember what happened. The patient was [place] un[place] at a park. The police was able to call EMS and was brought to the hospital. He is able to answer questions but cannot remember his name, is disoriented in time and place , also in person. Does not appear to have any injuries. His UA shows positive nitrates and more than 30 white blood cells, complains of some dysuria. A blood cell count is 7 potassium is 3 AST's 59 ALT is 51, initially came with a Wiley Coma Scale of 9. CKs 548. Heart rate was 111 blood pressure was elevated at 155/103, temperature of 99.4. Was given a dose of Rocephin and was evaluated by psychiatry. Past Med Surg Social Fam HX - Past Medical History Medical history: no medical history (Unknown) Psychiatric history: no psych history (Unknown) - Past Surgical History Surgical History: no surgical history (Unknown) - Social History Smoking Status: Unknown if ever smoked Alcohol use: unknown Drug use: unknown - Additional Family History Additional family history: Unknown Internal Medicine - H&P: Meds 3 Allergy/AdvReac Type Severity Reaction Status Date / Time No Known Allergies Allergy Verified 12/26/16 19:08 All Systems PM: A 10-system review of systems was performed and is negative for pertinent findings except as documented above in the HPI. Review of systems: Denies any chest pain, shortness of breath, other systems out of the 10 revealed were negative - Constitutional Vitals: Temp Pulse Resp BP Pulse Ox 99.4 F 82 18 132/95 98 12/26/16 19:08 12/26/16 20:37 12/26/16 20:37 12/26/16 20:37 12/26/16 20:37 General appearance: Present: A&O X 0 - Head Head exam: Present: atraumatic, normocephalic - Eye Eye exam: Present: PERRL, conjuntiva pink, sclera anicteric Pupils: Present: PERRL - Neck Neck exam general surgery: Present: supple, trachea midline. Absent: lymphadenopathy - Respiratory Respiratory exam: Present: CTAB. Absent: accessory muscle use, rales, rhonchi, wheezes - Cardiovascular Cardiovascular exam: Present: RRR, +S1, +S2. Absent: diastolic murmur, gallop, rubs, systolic murmur - GI/Abdominal GI/Abdominal exam: Present: normal bowel sounds, soft, no peritoneal signs. Absent: distended, tenderness - Extremities Exam Extremities exam: Present: warm, radial pulses palpable and symmetrical. Absent : calf tenderness, cyanotic, pedal edema - Neurological Exam Neurological exam: Present: CN II-XII intact, no focal deficits. Absent: oriented X3, pronater drift, facial droop, speech deficit - Skin Skin exam: Present: dry, intact Internal Med - H&P Results - Labs CBC & Chem 7: 12/26/16 19:12 12/26/16 Unknown Labs: Short CBC 12/26/16 Range/Units 19:12 WBC 7.0 L (9.0-38.0) K/mcL Hgb 13.0 L (14.5-22.5) g/dL Hct 38.2 L (45.0-67.0) % Plt Count 117 L (150-600) K/mcL Neutrophils # 5.4 (5.0-28.0) K/mcL BMP 12/26/16 Unknown Sodium 139 Potassium 3.0 L Chloride 101 Carbon Dioxide 23 BUN 19 Creatinine 0.97 Glucose 106 H Calcium 10.4 Cardiac Enzymes 12/26/16 Range/Units Unknown Troponin I 0.02 (0-0.03) ng/mL Liver Function 12/26/16 Range/Units Unknown Total Bilirubin 1.1 (0.2-1.2) mg/dL Direct Bilirubin 0.5 (0.0-0.5) mg/dL AST 59 H (5-34) Units/L ALT 51 (0-55) Units/L Alkaline Phosphatase 74 (38-126) Units/L Albumin 4.4 (3.5-5.0) g/dL Urine 12/26/16 Range/Units 19:28 Urine Color Loree A (Yellow) Urine Clarity Cloudy A (Clear) Urine pH 5.5 (5.0-8.0) pH Units Ur Specific [place] 1.028 H (1.010-1.025) Urine Protein 100 H (Neg-Trace) mg/dL Urine Glucose (UA) Normal (Normal) mg/dL - Impressions ITS Impressions Chest X-Ray 12/26/16 19:12 IMPRESSION: No acute cardiopulmonary abnormality. D/ / Sammy Montano MD / Sammy Montano MD Interpreting Provider: Sammy Montano MD Head CT 12/26/16 19:13 IMPRESSION: No acute intracranial abnormality. D/ / Sammy Montano MD / Sammy Montano MD Interpreting Provider: Sammy Montano MD
[2016-12-27] MEDS: cefTRIAXone 1,000 MG in Water for inj. (sterile) 10 ML IVP SCH ×2 (00:16→21:06)
[2016-12-27] MEDS: Nicotine 14 MG PATCH.TD24 TD SCH ×2 (00:17→08:10)
[2016-12-27] MEDS: 0.9 % Sodium Chloride 1,000 ML IVC SCH ×2 (00:17→11:52)
[2016-12-27 04:50] LABS: Basophils % 0.6 %; Eosinophils # 0.1 K/mcL (0.0-0.6); Hemoglobin 11.8 g/dL (12.9-16.9); Immature Granulocytes % 0.4 % (0-4); Lymphocytes # 1.4 K/mcL (0.6-4.6); Lymphocytes % 26.9 %; Mean Corpuscular HGB Conc 33.7 g/dL (31.6-35.5); Mean Corpuscular Hemoglobin 32.8 pg (28.0-33.3); Mean Corpuscular Volume 97.2 fL (83.0-100.0); Mean Platelet Volume 9.9 fL (9.4-12.4); Monocytes # 0.6 K/mcL (0.0-1.3); Monocytes % 11.2 %; Platelet Count 103 K/mcL (140-400); Red Cell Distribution Width 13.8 % (11.5-14.5); Segmented Neutrophils % 58.9 %
[2016-12-27 05:05] LABS: Alanine Aminotransferase 41 Units/L (0-55); Albumin/Globulin Ratio 1.2 (1.1-2.2); Alkaline Phosphatase 64 Units/L (38-126); Aspartate Amino Transferase 45 Units/L (5-34); BUN/Creatinine Ratio 18 (6-26); Blood Urea Nitrogen 12 mg/dL (8-26); Calcium 9.3 mg/dL (8.6-10.8); Carbon Dioxide 23 mEq/L (19-29); Chloride 106 mEq/L (98-109); Globulin 2.9 g/dL (2.4-3.5); Glucose 88 mg/dL (70-99); Osmolality,Calculated 291 (280-300); Potassium 3.9 mEq/L (3.5-4.5); Sodium 141 mEq/L (136-145); Total Protein 6.4 g/dL (6.0-8.3); eGFR For African Americans > 60 (> 60); eGFR For Non-African Americans > 60 (> 60)
[2016-12-27 05:06] LABS: Albumin 3.5 g/dL (3.5-5.0)
[2016-12-27] MEDS ORDERED: *HR* Heparin 5,000 UNIT/ML VIAL SQ SCH (06:00)
--- NOTE | 2016-12-27 08:17 | Consult Note ---
Date of Encounter: 12/27/16 Time of Encounter: 08:08 Assessment & Recommendation (1) Altered mental status Current visit: Yes Status: Acute Assessment & Recommendation: Suspect confabulation due to Weirneke Korsakoff from heavy alcohol consumption. Recommend monitoring for alcohol withdrawal and treating with thiamine and folate. Offered substance abuse treatment but client denied interest. Client claims he has a roommate. Would try and get collateral info from roommate or someone else familiar with client. No evidence of any psych issues beyond memory impairments. However, since client is filling in memory gaps with information that doesn't make sense would lean highly toward Weirneke Korsakoff. Client admits he was recently drinking a fifth a day. Has multiple failed rehab attempts. Lab derangements at time of admission often seen in heavy alcohol users as well. Qualifiers: Altered mental status type: unspecified Qualified Code(s): R41.82 - Altered mental status, unspecified History of Present Illness Requesting Physician: Laura Chacko MD Reason for consult: Dissociative Amnesia History of present illness: Mr. Pulliam is a 51 year old male who was found unresponsive in a park. Now alert but giving different answers to the same questions.....ex: claiming to be from [place] initially, then [place], but now says he is from [place]. Pleasant on exam. Oriented to [facility]. Knows current events and who the president is. Able to give his name but unclear if he is giving his correct name at this time. Also giving strange answers to questions like claiming he is but lives with a roommate. When asked why he doesn't live with his he claims she works for [employer] and is in space. Suspect confabulation due to Weirnecke Korsakoff. Client admits he is a heavy drinker. Claims last drink was ten days ago but doubt the veracity of this. Reports he drinks a fifth a day but suspect more. Has tried rehab multiple times. Denies any psych history. Denies any SI or HI. Denies any medical problems but may not be following up with any doctors at this time. Lab derangements at time of admission make sense with heavy alcohol use as well. CC: Laura Chacko MD Past Med Surg Social Fam HX - Past Medical History Medical history: no medical history - Past Psychiatric History Psychiatric history: Reports: no psych history - Past Surgical History Surgical History: no surgical history - Social History Smoking Status: Unknown if ever smoked Alcohol use: unknown Drug use: unknown Medications & Allergies 3 Allergy/AdvReac Type Severity Reaction Status Date / Time No Known Allergies Allergy Verified 12/26/16 19:08 Review of Systems Constitutional: Denies: fever, chills, weakness, weight change Eyes: Denies: eye pain, vision change Ears, Nose, Throat: Denies: ear pain, throat pain, dental pain, hearing loss, congestion Cardiovascular: Denies: chest pain, palpitations, dyspnea on exertion Respiratory: Denies: cough, dyspnea, wheezes Gastrointestinal: Denies: abdominal pain, nausea, vomiting, diarrhea, constipation Genitourinary male: Denies: urgency, dysuria, frequency, genital lesions Genitourinary female: Denies: urgency, dysuria, frequency, abnormal menses, dyspareunia Musculoskeletal: Denies: joint swelling, joint pain Integumentary: Denies: rash, lesions, pruritus Neurological: Reports: confusion, memory loss Psychiatric: Reports: confusion, memory loss. Denies: depression, anxiety, suicidal ideation, homicidal ideation Endocrine: Denies: fatigue, heat or cold intolerance Hematologic/Lymphatic: Denies: easy bruising, lymphadenopathy Allergic/Immunologic: Denies: urticaria, itchy eyes Mental Status Exam Patient orientation: Yes Person, Yes Time, Yes Place, No Circumstance Level of alertness: Alert Patient appearance: Appropriate Behavior: calm, cooperative Psychomotor activity: Normal Eye contact: Maintains Eye Contact Mood description: Euthymic/stable Affect description: congruent with mood Speech pattern: Normal rate Speech volume: Normal Thought process: Circumstantial Thought content: No Suicidal ideation, No Homicidal ideation, No Overt delusions Perceptual disturbances: No Auditory hallucinations, No Visual hallucinations Attention span: Capable of Focused Attention Memory description: Immediate Intact, Recent Impaired, Remote Intact Patient reliability: Questionable Historian Intelligence estimate: Average Judgment: Limited Insight: Minimal Results - Vital Signs Vital signs: Temp Pulse Resp BP Pulse Ox 98.9 F 78 16 151/91 97 12/27/16 07:29 12/27/16 07:29 12/27/16 07:29 12/27/16 07:29 12/27/16 07:29 - Drug Levels and Toxicology Drug Levels and Toxicology: Drug Levels and Toxicity 12/26/16 Unknown Ethyl Alcohol < 10 - Labs Labs: Laboratory Last Values WBC 5.1 K/mcL (4.3-11.1) 12/27/16 04:37 RBC 3.60 M/mcL (4.19-5.50) L 12/27/16 04:37 Hgb 11.8 g/dL (12.9-16.9) L 12/27/16 04:37 Hct 35.0 % (37.5-50.1) L 12/27/16 04:37 MCV 97.2 fL (83.0-100.0) 12/27/16 04:37 MCH 32.8 pg (28.0-33.3) 12/27/16 04:37 MCHC 33.7 g/dL (31.6-35.5) 12/27/16 04:37 RDW 13.8 % (11.5-14.5) 12/27/16 04:37 Plt Count 103 K/mcL (140-400) L 12/27/16 04:37 MPV 9.9 fL (9.4-12.4) 12/27/16 04:37 Immature Gran % 0.4 % (0-4) 12/27/16 04:37 Seg Neutrophils % 58.9 % 12/27/16 04:37 Lymphocytes % 26.9 % 12/27/16 04:37 Monocytes % 11.2 % 12/27/16 04:37 Eosinophils % 2.0 % 12/27/16 04:37 Basophils % 0.6 % 12/27/16 04:37 Neutrophils # 3.0 K/mcL (1.6-8.9) 12/27/16 04:37 Lymphocytes # 1.4 K/mcL (0.6-4.6) 12/27/16 04:37 Monocytes # 0.6 K/mcL (0.0-1.3) 12/27/16 04:37 Eosinophils # 0.1 K/mcL (0.0-0.6) 12/27/16 04:37 Basophils # 0.0 K/mcL (0.0-0.2) 12/27/16 04:37 Immature Plt Fraction 6.0 % (1.1-6.1) 12/26/16 19:12 PT 12.1 Seconds (9.4-12.1) 12/26/16 Unknown INR 1.1 12/26/16 Unknown APTT 29.6 Seconds (26.0-36.0) 12/26/16 Unknown Sodium 141 mEq/L (136-145) 12/27/16 04:37 Potassium 3.9 mEq/L (3.5-4.5) 12/27/16 04:37 Chloride 106 mEq/L (98-109) 12/27/16 04:37 Carbon Dioxide 23 mEq/L (19-29) 12/27/16 04:37 BUN 12 mg/dL (8-26) 12/27/16 04:37 Creatinine 0.65 mg/dL (0.72-1.25) L 12/27/16 04:37 Est GFR ( Amer) > 60 (> 60) 12/27/16 04:37 Est GFR (Non-Af Amer) > 60 (> 60) 12/27/16 04:37 BUN/Creatinine Ratio 18 (6-26) 12/27/16 04:37 Glucose 88 mg/dL (70-99) 12/27/16 04:37 POC Glucose 110 (58-89) H 12/26/16 19:12 Calculated Osmolality 291 (280-300) 12/27/16 04:37 Calcium 9.3 mg/dL (8.6-10.8) 12/27/16 04:37 Total Bilirubin 1.0 mg/dL (0.2-1.2) 12/27/16 04:37 Direct Bilirubin 0.5 mg/dL (0.0-0.5) 12/26/16 Unknown Indirect Bilirubin 0.6 mg/dL (0.0-1.2) 12/26/16 Unknown AST 45 Units/L (5-34) H 12/27/16 04:37 ALT 41 Units/L (0-55) 12/27/16 04:37 Alkaline Phosphatase 64 Units/L (38-126) 12/27/16 04:37 Ammonia 34 mcmol/L (18-72) 12/26/16 Unknown Creatine Kinase 548 Units/L (30-200) H 12/26/16 Unknown Troponin I 0.02 ng/mL (0-0.03) 12/26/16 Unknown Serum Total Protein 6.4 g/dL (6.0-8.3) 12/27/16 04:37 Albumin 3.5 g/dL (3.5-5.0) D 12/27/16 04:37 Globulin 2.9 g/dL (2.4-3.5) 12/27/16 04:37 Albumin/Globulin Ratio 1.2 (1.1-2.2) 12/27/16 04:37 TSH 1.180 mcIU/mL (0.350-4.840) 12/26/16 Unknown Urine Color [place]oree (Yellow) A 12/26/16 19: Urine Clarity Cloudy (Clear) A 12/26/16 19: Urine pH 5.5 pH Units (5.0-8.0) 12/26/16 19: Ur Specific [place] 1.028 (1.010-1.025) H 12/26/16 19: Urine Protein 100 mg/dL (Neg-Trace) H 12/26/16 19:28 Urine Glucose (UA) Normal mg/dL (Normal) 12/26/16 19: Urine Ketones 15 mg/dL (Negative) H 12/26/16 19:28 Urine Blood Negative (Negative) 12/26/16 19:28 Urine Nitrite Positive (Negative) A 12/26/16 19: Urine Bilirubin Large (Negative) H 12/26/16 19: Urine Urobilinogen Normal mg/dL (Normal) 12/26/16 19:28 Ur Leukocyte Esterase Small (Negative) H 12/26/16 19:28 Urine Microscopic RBC 5-15 per hpf (0-3) H 12/26/16 19:28 Urine Microscopic WBC 15-30 per hpf (0-3) H 12/26/16 19:28 Ur Squamous Epith Cells Many per lpf (None-Few) H 12/26/16 19:28 Ur Renal Epithelial Cell Few per hpf (None-Few) 12/26/16 19: Urine Bacteria Many per hpf (None-Few) H 12/26/16 19:28 Hyaline Casts Many per lpf (None-Few) H 12/26/16 19:28 Urine Mucus Many (Few) H 12/26/16 19:28 Urine Yeast Few per hpf (None Seen) H 12/26/16 19:28 Ur Culture Indicated? YES (NO) A 11/05/17 19:28 Urine Opiates Screen Negative ng/mL (Zfnddz=930) 12/26/16 19:28 Ur Barbiturates Screen Negative ng/mL (Yewtrs=570) 12/26/16 19:28 Ur Phencyclidine Scrn Negative ng/mL (Cutoff=25) 12/26/16 19:28 Ur Amphetamines Screen Negative ng/mL (Xelovs=8800) 12/26/16 19:28 U Benzodiazepines Scrn Negative ng/mL (Ttdqjm=661) 12/26/16 19:28 Urine Cocaine Screen Negative ng/mL (Cutoff= 300) 12/26/16 19:28 U Marijuana (THC) Screen Negative ng/mL (Cutoff = 50) 12/26/16 19:28 Ethyl Alcohol < 10 mg/dL (0-10) 12/26/16 Unknown Consult Discharge Plan - Plan Referrals: NONE,PCP [Primary Care Provider] -
[2016-12-27 08:23] LABS: Hepatitis A Antibody IgM Nonreactive (Nonreactive); Hepatitis B Core IgM Nonreactive (Nonreactive); Hepatitis B Surface Antigen Nonreactive (Nonreactive); Hepatitis C Virus Antibody Nonreactive (Nonreactive)
[2016-12-27] MEDS ORDERED: diazePAM 10 MG/2 ML SYRINGE IVP PRN ×5 (09:55)
--- NOTE | 2016-12-27 10:55 | Internal Med Progress Note ---
Date of Encounter: 12/27/16 Time of Encounter: 10:53 - Assessment and plan (1) Encephalopathy Current Visit: Yes Status: Acute Assessment and plan: Could be metabolic/toxic related to Wernicke's encephalopathy; somewhat improved since admission; CT head and MRI brain showed no acute abnormality including acute stroke. Urine drug screen negative. Psychiatry consult noted, recommend treatment for alcohol withdrawal; continue CIWA protocol; Thiamine and Folic acid supplements. Also noted to have UTI, continue IV antibiotics and follow up urine culture. account services manager consult for safe discharge. Physical and occupational therapy evaluation. (2) Alcohol withdrawal Current Visit: Yes Status: Suspected Assessment and plan: Does not require IV Ativan. Not noted to have any signs or symptoms of alcohol withdrawal at this time except some amnesia and confusion. Continue CIWA protocol. Diet as tolerated. PPI. Qualifiers: Complication of substance-induced condition: with delirium Qualified Code(s ): F10.231 - Alcohol dependence with withdrawal delirium (3) Hypokalemia Current Visit: Yes Status: Resolved Assessment and plan: Improved with supplements. (4) UTI (urinary tract infection) Current Visit: Yes Status: Acute Assessment and plan: Urinalysis suggestive of infection with positive nitrite, leukocyte esterase, 15 -30 WBC and many bacteria. Follow-up urine culture, continue IV Rocephin. Qualifiers: Urinary tract infection type: site unspecified Hematuria presence: without hematuria Qualified Code(s): N39.0 - Urinary tract infection, site not specified - Subjective Interval history: Reports feeling well, no abdominal pain, dyspnea, chest pain; gives different stories regarding his name, home address and family information; - Constitutional Vitals: Temp Pulse Resp BP Pulse Ox 98.9 F 78 16 151/91 97 12/27/16 07:29 12/27/16 07:29 12/27/16 07:29 12/27/16 07:29 12/27/16 07:29 General appearance: Present: A&O X 0, cooperative, pleasant. Absent: answers questions appropriately - Respiratory Respiratory exam: Present: CTAB. Absent: accessory muscle use, rales, rhonchi, wheezes - Cardiovascular Cardiovascular exam: Present: RRR, +S1, +S2. Absent: diastolic murmur, gallop, rubs, systolic murmur - GI/Abdominal GI/Abdominal exam: Present: normal bowel sounds, soft, no peritoneal signs. Absent: distended, tenderness - Extremities Exam Extremities exam: Present: full ROM, warm, radial pulses palpable and symmetrical. Absent: calf tenderness, cyanotic, pedal edema - Neurological Exam Neurological exam: Present: altered, CN II-XII intact, no focal deficits. Absent: pronater drift, facial droop, speech deficit Internal Medicine: Result - Labs CBC & Chem 7: 12/27/16 04:37 12/27/16 04:37 Labs: Short CBC 12/27/16 Range/Units 04:37 WBC 5.1 (4.3-11.1) K/mcL Hgb 11.8 L (12.9-16.9) g/dL Hct 35.0 L (37.5-50.1) % Plt Count 103 L (140-400) K/mcL Neutrophils # 3.0 (1.6-8.9) K/mcL BMP 12/26/16 12/27/16 Unknown 04:37 Sodium 139 141 Potassium 3.0 L 3.9 Chloride 101 106 Carbon Dioxide 23 23 BUN 19 12 Creatinine 0.97 0.65 L Glucose 106 H 88 Calcium 10.4 9.3 Cardiac Enzymes 12/26/16 Range/Units Unknown Troponin I 0.02 (0-0.03) ng/mL Liver Function 12/26/16 12/27/16 Range/Units Unknown 04:37 Total Bilirubin 1.1 1.0 (0.2-1.2) mg/dL Direct Bilirubin 0.5 (0.0-0.5) mg/dL AST 59 H 45 H (5-34) Units/L ALT 51 41 (0-55) Units/L Alkaline Phosphatase 74 64 (38-126) Units/L Albumin 4.4 3.5 D (3.5-5.0) g/dL - ABG Interpretation ABG results: PT/INR, D-dimer PT 12.1 Seconds (9.4-12.1) 12/26/16 Unknown - Impressions Impressions Brain MRI 12/27/16 21:17 IMPRESSION: 1. No acute abnormality. Specifically, no acute infarction. 2. Mild diffuse brain parenchymal volume loss. Sequela of minimal chronic microvascular ischemic changes. D/ / Alesia Guerrero MD / ChristJose Guerrero MD Interpreting Provider: Alesia Guerrero MD Consult Discharge Plan - Plan Referrals: NONE,PCP [Primary Care Provider] -
[2016-12-27 11:12] LABS: Magnesium 1.1 mg/dL (1.6-2.6); Phosphorous 4.4 mg/dL (2.3-4.7)
[2016-12-27] MEDS: Folic Acid 1 MG TABLET PO SCH (11:57)
[2016-12-27] MEDS: Thiamine (B-1) 100 MG TABLET PO SCH (11:57)
[2016-12-28] MEDS: Folic Acid 1 MG TABLET PO SCH (08:32)
[2016-12-28] MEDS: Nicotine 14 MG PATCH.TD24 TD SCH (08:32)
[2016-12-28] MEDS: Thiamine (B-1) 100 MG TABLET PO SCH (08:32)
--- NOTE | 2016-12-28 10:11 | Discharge Summary ---
Date of Encounter: 12/28/16 Time of Encounter: 08:40 - Discharge Diagnosis (1) Wernicke encephalopathy Priority: Primary Status: Acute Comments: Most likely the cause of pt's confusion on admission. Pt has given several caregivers differing lengths of how long it has been since he had a drink. He reports to me that he has not had a drink in 10 days. He reports drinking at least 1/5 per day or "whatever I can get my hands on." Pt will be sent home with rx for folate and thiamine. Pt has been offered substance abuse information, he states that he is going to look into going back into inpt rehab. He is alert, oriented, engaging, speech is clear. His gait is steady. Alcohol level was < 10 on arrival, pt could have been in acute withdrawl on arrival. He has not had to utlilize the CIWA protocol since admission. Pt will be discharged with information on rehab, AA, and substance abuse treatment plans. Pt states that he is going home where he lives alone. He states that his step father will be able to pick him up and take him home. (2) Alcohol withdrawal Priority: Secondary Status: Suspected Comments: Plan as above. Qualifiers: Complication of substance-induced condition: with delirium Qualified Code(s ): F10.231 - Alcohol dependence with withdrawal delirium (3) Alcoholism Priority: Secondary Status: Chronic Comments: Chronic. Plan as above. (4) UTI (urinary tract infection) Priority: Secondary Status: Acute Comments: Pt has been treated for a UTI since arrival, however, final urine culture negative for growth. Pt denies urinary s/s. Pt will not be sent home with antibiotic. Pt has been urged to follow up with PCP or urgent care if symptoms return. He has no CVA tenderness, no abdominal pain, no leukocytosis or fever. Qualifiers: Urinary tract infection type: site unspecified Hematuria presence: with hematuria Qualified Code(s): N39.0 - Urinary tract infection, site not specified; R31.9 - Hematuria, unspecified; R31.9 - Hematuria, unspecified (5) Hypokalemia Priority: Secondary Status: Resolved Comments: Resolved. (6) Transaminitis Priority: Secondary Status: Chronic Comments: Elevated AST on arrival, was decreasing. Pt has no pain with palpation in RUQ, no hepatomegaly noted on exam. Liver US shows hepatic steatosis. Hepatitis labs negative. f Follow up with PCP for continued monitoring and evaluations. (7) Rhabdomyolysis Priority: Secondary Status: Acute Comments: CK was elevated at 570 on arrival, has decreased to 255. Pt received IVF hydration and pt denies joint pain or stiffness. Urine at bedside is clear dangelo. Qualifiers: Rhabdomyolysis type: non-traumatic Qualified Code(s): M62.82 - Rhabdomyolysis (8) DVT prophylaxis Priority: Secondary Status: Acute Comments: Pt has been ambulatory. - Discharge Medications Home Medications: No Known Home Drugs 12/27/16 [History] Allergies/Adverse Reactions: 3 Allergy/AdvReac Type Severity Reaction Status Date / Time lorazepam [From Ativan] Allergy See Verified 11/27/14 00:59 Comments Procedures/tests Complete & Pending: Procedures Performed prior 72 hours Category Date Time Status US abdomen limited [US] Stat Exams 12/27/16 09:00 Completed Date of admission: 12/26/16 21:25 Primary care physician: PCP NONE Consults: 12/27/16 09:55 Consult to [employer] Apprentice [CONS] Routine Reason for SW Consult: ETOH withdraw Discharging clinician: Eileen Mosley Anticipated date of discharge: 12/28/16 - Patient Status Disposition: Home, Self-Care Condition: Good Functional capacity at discharge: independent ambulation Overall status at discharge: patient is back to baseline - Discharge Instructions Follow Up With: NONE,PCP [Primary Care Provider] - Additional Instructions: Please follow up with your PCP in the next 7-10 days for a follow up visit. Please continue your good progress on alcohol cessation. Please use the resources we have given you to continue your progress and utilize counseling or inpatient resources. Return to the ER as needed for any other problems or concerns or if your symptoms worsen or return. - Diet and Activity Activity: increase activity as tolerated Diet: advance to your usual diet Interval History: Please see assessment and plan for hospital course. Hospital course: Mr. Pulliam is a 51 year old male Time spent discussing smoking cessation with patient: 3 to 10 minutes - Time Spent with Patient Total time spent providing and/or coordinating discharge services: Less than 30 minutes - Constitutional Vitals: Temp Pulse Resp BP Pulse Ox 99.5 F 69 16 125/86 98 12/28/16 07:25 12/28/16 07:25 12/28/16 07:25 12/28/16 07:25 12/28/16 07:25 General appearance: Present: cooperative, A&O X 3, pleasant, no acute distress, answers questions appropriately - Head Head exam: Present: atraumatic, normal inspection, normocephalic - Eye Eye exam: Present: normal appearance, conjuntiva pink, sclera anicteric - Neck Neck exam general surgery: Present: supple, trachea midline. Absent: lymphadenopathy, tenderness - Respiratory Respiratory exam: Present: CTAB. Absent: accessory muscle use, chest wall tenderness, rales, respiratory distress, rhonchi, wheezes - Cardiovascular Cardiovascular exam: Present: RRR, +S1, +S2. Absent: diastolic murmur, gallop, irregular rhythm, rubs, systolic murmur - GI/Abdominal GI/Abdominal exam: Present: normal bowel sounds, soft. Absent: distended, hepatomegaly, tenderness - Extremities Exam Extremities exam: Present: normal capillary refill, normal inspection, warm, radial pulses palpable and symmetrical. Absent: calf tenderness, cyanotic, pedal edema - Neurological Exam Neurological exam: Present: alert, oriented X3, no focal deficits, strengths equal and symetr throughout. Absent: altered, pronater drift, facial droop, speech deficit - Skin Skin exam: Present: dry, intact, rash, warm
[2016-12-28 11:54] VITALS: BP 131/92
--- NOTE | 2016-12-31 16:25 | Electrocardiograph Report ---
[address] [address] Test Date: 2016-12-26 Pat Name: Jeovanny Pulliam Department: 103 Room: 3B Gender: Home Help Aide: KHANH : 1965 Requested By: Jesse Oconnor Order Number: [id number] Reading MD: Leo Carmona MD Measurements Intervals [place] Rate: 98 P: 74 FL: 168 QRS: 63 QRSD: 100 T: 51 QT: 373 QTc: 428 Interpretive Statements SINUS RHYTHM Electronically Signed On 12-31-2016 16:23:32 EST by Leo Carmona MD
== END 2016-12-28 16:55 | disposition home or self-care (01) ==
LOC: EMEROO 19:06 → 3BNU 19:06 → MERGE 21:25 → SUATTDRO 21:25 → EDBD 21:25 → 3BNU 21:55
PROVIDERS: ADMIT Internal Medicine; ATTEND Internal Medicine

== ENCOUNTER 2017-05-08 16:27 | Observation (INO) ==
--- NOTE | 2017-05-08 17:35 | Emergency Department Note ---
Disposition Clinical Impression: Alcohol abuse Ankle sprain Qualifiers: Encounter type: initial encounter Involved ligament of ankle: unspecified ligament Laterality: right Qualified Code(s): S93.401A - Sprain of unspecified ligament of right ankle, initial encounter Altered mental status Qualifiers: Altered mental status type: unspecified Qualified Code(s): R41.82 - Altered mental status, unspecified Alcohol withdrawal Qualifiers: Complication of substance-induced condition: with unspecified complication Qualified Code(s): F10.239 - Alcohol dependence with withdrawal, unspecified Disposition: Admitted As Inpatient Condition: Fair Time of Disposition: 20:27 Altered Mental Status HPI - General Chief Complaint: ED Altered Mental Status Stated Complaint: AMS, R foot pain Time Seen by Provider: 05/08/17 17:16 Source: patient, family Mode of arrival: ambulatory Limitations: altered mental status Nursing Notes Reviewed: Yes Vital Signs Reviewed: Yes - History of Present Illness HPI Narrative: 51-year-old male with a history of alcohol use present for evaluation of altered mental status and right ankle pain. Patient presents in the care of family states the patient has been acutely altered. Patient does have a concerning history of alcohol abuse. Patient states that he drinks a fifth of alcohol every 3 days. Patient states he has not had any alcohol for approximately 15 days. Patient states that he injured his right foot and ankle while hiking 2 days ago. Reports a fall. Denies any head injury. Denies any loss of conscious. Patient denies any other drugs. Patient has a chest pain or fevers. Patient denies any nausea or vomiting. Patient's family member states that he has been having hallucinations and not acting appropriate. Patient told the attending that the year was 2012 and present [facility] was president. - Related Data Previous Rx's Medication Instructions Recorded Folic Acid 1 mg PO DAILY #30 tablet 12/28/16 Thiamine (B-1) [Vitamin B-1] 100 mg PO DAILY #30 tablet 12/28/16 Allergies Allergy/AdvReac Type Severity Reaction Status Date / Time lorazepam [From Ativan] Allergy See Verified 11/27/14 00:59 Comments Limitations: ROS unobtainable due to patients medical condition Past Medical History - Past Medical History Source: obtained from family Medical history: Reports: no medical history, other Surgical history: Reports: no surgical history, other Psychiatric history: Reports: no psych history - Social History Smoking Status: Never smoker Smokeless Tobacco Status: Yes Alcohol use: Reports: occasionally, heavy Drug use: Reports: none Physical Exam - General Limitations: altered mental status General appearance: alert, appears intoxicated - Head Head exam: atraumatic, normocephalic, normal inspection - Eye Eye exam: Present: normal appearance, PERRL, EOMI, conjunctival injection. Absent: miosis, mydriasis - ENT ENT exam: normal exam - Neck Neck exam: Present: normal inspection - Chest Chest inspection: Present: normal inspection, symmetric chest wall rise - Respiratory Respiratory exam: Present: normal lung sounds bilaterally. Absent: respiratory distress - Cardiovascular Cardiovascular exam: Present: regular rate, normal rhythm. Absent: systolic murmur - Abdominal Exam Abdominal exam: Present: soft, Non-Tender - Back Exam Back exam: Present: normal inspection - Neurological Exam Neurological exam: Present: alert, CN II-XII intact. Absent: oriented X3 - Expanded Neurological Exam Patient oriented to: Present: person, place. Absent: time Speech: Present: fluid speech Cranial nerves: EOM function (II, III, IV, ): Normal, facial sensation (V): Normal, facial palsy (VII): Normal, spinal accessory function (XI): Normal, tongue deviation (XII): Normal Cerebellar function: finger to nose: Abnormal Left, heel to grossman: Abnormal Left Coma Scale Eye Opening: Spontaneous Coma Scale Motor Response: Obeys Commands Coma Scale Verbal Response: Confused Coma Scale Total: 14 - Skin Skin exam: Present: warm, dry, intact, normal color Course - Reevaluation(s) Reevaluation #1: Patient seen and examined. Patient continues to be acutely confused. Patient was given Valium as well as IV Ativan. Patient does not have the capacity to make decisions for himself. Discussed with the plan of care with the family at bedside. Patient will be admitted for alcohol withdrawal. Time: 19:35 Vital Signs Temperature 98.8 F 05/08/17 17:10 Pulse Rate 93 05/08/17 17:10 Respiratory Rate 18 05/08/17 17:10 Blood Pressure 160/104 05/08/17 17:10 O2 Sat by Pulse Oximetry 99 05/08/17 17:10 Temperature 98.8 F 05/08/17 17:10 Pulse Rate 75 05/08/17 20:17 Respiratory Rate 16 05/08/17 20:17 Blood Pressure 157/118 05/08/17 20:17 O2 Sat by Pulse Oximetry 95 05/08/17 20:17 Oxygen Delivery Oxygen Delivery Room Air Altered Mental Status - MDM Narrative Medical decision making narrative: 51-year-old male present for evaluation felt mental status. Patient does have history of chronic topical is in. Patient's been without a drink for 15 days. Patient GCS of 14. Nonfocal exam otherwise. Patient's ED course is significant for a 51-year-old male going through acute withdrawal. Patient was given Valium as well as Ativan. Patient be admitted to the hospital service for further evaluation monitoring. Patient had a CT of the head given history of recent fall. No acute abnormalities. Patient also had imaging of the foot and ankle which is likely musculoskeletal sprain. Patient had hypokalemia and hypomagnesemia. Those I's were repleted in the emergency department. Patient was also given thiamine and folate. Patient verbalized concerns that he may not want to stay. However patient's son had the mental capacity to make those decisions. Patient was pink slipped - Lab Data Lab results reviewed: Yes I reviewed the patient's lab results. Result diagrams: 05/08/17 17:39 05/08/17 17:39 Lab Results 05/08/17 05/08/17 05/08/17 Range/Units 17:29 17:39 17:39 WBC 6.0 (4.3-11.1) K/mcL RBC 4.18 L (4.19-5.50) M/mcL Hgb 13.3 (12.9-16.9) g/dL Hct 39.5 (37.5-50.1) % MCV 94.5 (83.0-100.0) fL MCH 31.8 (28.0-33.3) pg MCHC 33.7 (31.6-35.5) g/dL RDW 13.1 (11.5-14.5) % Plt Count 127 L (140-400) K/mcL MPV 10.0 (9.4-12.4) fL Immature Gran % 0.3 (0-4) % Seg Neutrophils % 66.2 % Lymphocytes % 21.7 % Monocytes % 10.7 % Eosinophils % 0.8 % Basophils % 0.3 % Neutrophils # 4.0 (1.6-8.9) K/mcL Lymphocytes # 1.3 (0.6-4.6) K/mcL Monocytes # 0.6 (0.0-1.3) K/mcL Eosinophils # 0.1 (0.0-0.6) K/mcL Basophils # 0.0 (0.0-0.2) K/mcL PT (9.4-12.1) Seconds INR Sodium (136-145) mEq/L Potassium (3.5-5.1) mEq/L Chloride (98-107) mEq/L Carbon Dioxide (23-29) mEq/L BUN (6-20) mg/dL Creatinine (0.70-1.30) mg/dL Est GFR ( Amer) (> 60) Est GFR (Non-Af Amer) (> 60) BUN/Creatinine Ratio (6-26) Glucose (70-105) mg/dL Calculated Osmolality (280-300) Calcium (8.6-10.3) mg/dL Phosphorus (2.7-4.5) mg/dL Magnesium (1.6-2.6) mg/dL Total Bilirubin (0.3-1.0) mg/dL Direct Bilirubin (0.0-0.2) mg/dL Indirect Bilirubin (0.0-1.2) mg/dL AST (13-39) Units/L ALT (7-52) Units/L Alkaline Phosphatase (34-104) Units/L Ammonia 30 (16-53) mcmol/L Serum Total Protein (6.4-8.9) g/dL Albumin (3.5-5.7) g/dL Globulin (2.4-3.5) g/dL Albumin/Globulin Ratio (1.1-2.2) Urine Color Yellow (Yellow) Urine Clarity Clear (Clear) Urine pH 6.5 (5.0-8.0) pH Units Ur Specific [place] 1.020 (1.010-1.025) Urine Protein Trace (Neg-Trace) mg/dL Urine Glucose (UA) Normal (Normal) mg/dL Urine Ketones 15 H (Negative) mg/dL Urine Blood Negative (Negative) Urine Nitrite Negative (Negative) Urine Bilirubin Negative (Negative) Urine Urobilinogen Normal (Normal) mg/dL Ur Leukocyte Esterase Negative (Negative) Urine Microscopic RBC 3-5 H (0-3) per hpf Urine Microscopic WBC 0-3 (0-3) per hpf Ur Squamous Epith Cells Moderate H (None-Few) per lpf Urine Bacteria None Seen (None-Few) per hpf Hyaline Casts None Seen (None-Few) per lpf Ur Culture Indicated? NO (NO) Urine Opiates Screen (Cjqwpz=942) ng/mL Ur Barbiturates Screen (Pwbdxz=154) ng/mL Ur Phencyclidine Scrn (Cutoff=25) ng/mL Ur Amphetamines Screen (Tbatjz=3707) ng/mL U Benzodiazepines Scrn (Eaeljp=133) ng/mL Urine Cocaine Screen (Cutoff= 300) ng/mL U Marijuana (THC) Screen (Cutoff = 50) ng/mL Ethyl Alcohol (0-10) mg/dL 05/08/17 05/08/17 05/08/17 Range/Units 17:39 17:39 18:11 WBC (4.3-11.1) K/mcL RBC (4.19-5.50) M/mcL Hgb (12.9-16.9) g/dL Hct (37.5-50.1) % MCV (83.0-100.0) fL MCH (28.0-33.3) pg MCHC (31.6-35.5) g/dL RDW (11.5-14.5) % Plt Count (140-400) K/mcL MPV (9.4-12.4) fL Immature Gran % (0-4) % Seg Neutrophils % % Lymphocytes % % Monocytes % % Eosinophils % % Basophils % % Neutrophils # (1.6-8.9) K/mcL Lymphocytes # (0.6-4.6) K/mcL Monocytes # (0.0-1.3) K/mcL Eosinophils # (0.0-0.6) K/mcL Basophils # (0.0-0.2) K/mcL PT 12.1 (9.4-12.1) Seconds INR 1.1 Sodium 136 (136-145) mEq/L Potassium 2.9 L (3.5-5.1) mEq/L Chloride 97 L (98-107) mEq/L Carbon Dioxide 27 (23-29) mEq/L BUN 11 (6-20) mg/dL Creatinine 0.57 L (0.70-1.30) mg/dL Est GFR ( Amer) > 60 (> 60) Est GFR (Non-Af Amer) > 60 (> 60) BUN/Creatinine Ratio 19 (6-26) Glucose 92 (70-105) mg/dL Calculated Osmolality 281 (280-300) Calcium 9.6 (8.6-10.3) mg/dL Phosphorus 3.2 (2.7-4.5) mg/dL Magnesium 1.5 L (1.6-2.6) mg/dL Total Bilirubin 1.1 H (0.3-1.0) mg/dL Direct Bilirubin 0.2 (0.0-0.2) mg/dL Indirect Bilirubin 0.9 (0.0-1.2) mg/dL AST 34 (13-39) Units/L ALT 26 (7-52) Units/L Alkaline Phosphatase 61 (34-104) Units/L Ammonia (16-53) mcmol/L Serum Total Protein 6.7 (6.4-8.9) g/dL Albumin 4.5 (3.5-5.7) g/dL Globulin 2.2 L (2.4-3.5) g/dL Albumin/Globulin Ratio 2.0 (1.1-2.2) Urine Color (Yellow) Urine Clarity (Clear) Urine pH (5.0-8.0) pH Units Ur Specific [place] (1.010-1.025) Urine Protein (Neg-Trace) mg/dL Urine Glucose (UA) (Normal) mg/dL Urine Ketones (Negative) mg/dL Urine Blood (Negative) Urine Nitrite (Negative) Urine Bilirubin (Negative) Urine Urobilinogen (Normal) mg/dL Ur Leukocyte Esterase (Negative) Urine Microscopic RBC (0-3) per hpf Urine Microscopic WBC (0-3) per hpf Ur Squamous Epith Cells (None-Few) per lpf Urine Bacteria (None-Few) per hpf Hyaline Casts (None-Few) per lpf Ur Culture Indicated? (NO) Urine Opiates Screen Negative (Ksrnof=816) ng/mL Ur Barbiturates Screen Negative (Svybto=502) ng/mL Ur Phencyclidine Scrn Negative (Cutoff=25) ng/mL Ur Amphetamines Screen Negative (Hcwcxx=8620) ng/mL U Benzodiazepines Scrn Negative (Ruyprs=099) ng/mL Urine Cocaine Screen Negative (Cutoff= 300) ng/mL U Marijuana (THC) Screen Negative (Cutoff = 50) ng/mL Ethyl Alcohol < 10 (0-10) mg/dL - Radiology Data Radiology results reviewed: Yes I reviewed the patient's radiology results. Ankle X-Ray 05/08/17 17:30 IMPRESSION: No acute bony or joint abnormality seen in the right ankle or right foot D/ / Fernandez Pena MD / Fernandez Pena MD Interpreting Provider: Fernandez Pena MD Foot X-Ray 05/08/17 17:30 IMPRESSION: No acute bony or joint abnormality seen in the right ankle or right foot D/ / Fernandez Pena MD / Fernandez Pena MD Interpreting Provider: Fernandez Pena MD Head CT 05/08/17 17:30 IMPRESSION: No acute intracranial abnormality. D/ / Raymond Abreu MD / Raymond Abreu MD Interpreting Provider: Raymond Abreu MD - EKG Data EKG attestation: Yes I reviewed and interpreted this EKG. EKG shows normal: sinus rhythm Rate: normal Rhythm: NSR [place]/QRS: normal Interpretation: no acute changes, nonspecific ST-T wave changes Critical Care Time Critical Care Time: Yes Total Critical Care Time: 35 Attestation: Critical care time 35 minutes managing patient's acute alcohol withdrawal [place] - [place] Situation: Demographics Background: Presenting Complaint Assessment: Vital Signs, Course and respsone to treatment, Patient/Family Expectation Recommendation: Barrier(s) to disposition, Recommendation based on pending studies, treatments, or consults [place] Report Given to: Dr. Romeo [place] Repor Time: 20:01 Attestation Statement - Attestation Attestation: Patient was seen with resident physician. I reviewed the history, physical, assessment and plan, and agree with the findings. I also personally evaluated this patient and had otsh-kg-pjnz time with this patient. 51-year-old male presents to the emergency Department chief complaint of right ankle and foot pain. He also has a caregiver says he has been hallucinating and is disoriented. Patient has a history of alcohol abuse and patient claims that he stopped drinking approximately 15 days ago. He has had DTs in the past as well as a seizure approximately 3 years ago. Patient himself denies any of these symptoms and says the only reason he is here is because of the foot pain. When inquiring further harm the patient's confused saying that he knows that he is at [facility], but he believes that it is 2012 and that Pres. Obama is still present. Review of systems as above remained reviewed negative. PE vital signs are stable. ENT is unremarkable his eyes are bloodshot. Heart regular rhythm and rate. Lungs clear. Abdomen soft and nontender. Extremities tenderness with palpation of the anterior foot and ankle on the right side. No tenderness the fibular head. Neurologically alert disoriented to time. Moves all extremities. Skin no obvious rashes or signs of traumatic injury. ED course. We will do full workup for mental status change including x-rays of leg CT of the head labs and will likely admit the patient for altered mental status. Hemodynamically the patient remained stable in the emergency department he was given IV hydration. The tremoring improved with medical treatment he was given including Valium. Patient was still however very confused. He at one point said that he was can refuse treatment. At that point we did have to place him on an involuntary admission. Patient was clearly not competent to make that decision which could have been problematic if he continued to go into withdrawal. We discussed with the hospitalist service and arrange for admission to the hospital. Agree with resident physician assessment and plan.
[2017-05-08] MEDS ORDERED: diazePAM 5 MG TABLET PO ONE (17:36)
[2017-05-08 18:10] LABS: Ethanol < 10 mg/dL (0-10)
[2017-05-08 18:19] LABS: Basophils % 0.3 %; Eosinophils # 0.1 K/mcL (0.0-0.6); Eosinophils % 0.8 %; Hematocrit 39.5 % (37.5-50.1); Hemoglobin 13.3 g/dL (12.9-16.9); Immature Granulocytes % 0.3 % (0-4); Lymphocytes # 1.3 K/mcL (0.6-4.6); Lymphocytes % 21.7 %; Mean Corpuscular HGB Conc 33.7 g/dL (31.6-35.5); Mean Corpuscular Hemoglobin 31.8 pg (28.0-33.3); Mean Corpuscular Volume 94.5 fL (83.0-100.0); Monocytes # 0.6 K/mcL (0.0-1.3); Monocytes % 10.7 %; Platelet Count 127 K/mcL (140-400); Red Blood Count 4.18 M/mcL (4.19-5.50); Red Cell Distribution Width 13.1 % (11.5-14.5); Segmented Neutrophils % 66.2 %
[2017-05-08 18:22] LABS: INR 1.1; Prothrombin Time 12.1 Seconds (9.4-12.1)
[2017-05-08 18:35] LABS: Alanine Aminotransferase 26 Units/L (7-52); Albumin 4.5 g/dL (3.5-5.7); Alkaline Phosphatase 61 Units/L (34-104); Aspartate Amino Transferase 34 Units/L (13-39); BUN/Creatinine Ratio 19 (6-26); Bilirubin,Direct 0.2 mg/dL (0.0-0.2); Bilirubin,Indirect 0.9 mg/dL (0.0-1.2); Bilirubin,Total 1.1 mg/dL (0.3-1.0); Blood Urea Nitrogen 11 mg/dL (6-20); Calcium 9.6 mg/dL (8.6-10.3); Carbon Dioxide 27 mEq/L (23-29); Chloride 97 mEq/L (98-107); Globulin 2.2 g/dL (2.4-3.5); Glucose 92 mg/dL (70-105); Magnesium 1.5 mg/dL (1.6-2.6); Osmolality,Calculated 281 (280-300); Phosphorous 3.2 mg/dL (2.7-4.5); Potassium 2.9 mEq/L (3.5-5.1); Sodium 136 mEq/L (136-145); Total Protein 6.7 g/dL (6.4-8.9); eGFR For African Americans > 60 (> 60); eGFR For Non-African Americans > 60 (> 60)
[2017-05-08 19:03] LABS: Amphetamine Screen,Urine Negative ng/mL (Cutoff=1000); Barbiturate Screen,Urine Negative ng/mL (Cutoff=200); Benzodiazepines Screen,Urine Negative ng/mL (Cutoff=200); Cannabinoid Screen,Urine Negative ng/mL (Cutoff = 50); Cocaine Screen,Urine Negative ng/mL (Cutoff= 300); Opiate Screen,Urine Negative ng/mL (Cutoff=300); Phencyclidine Screen,Urine Negative ng/mL (Cutoff=25)
[2017-05-08 19:05] LABS: Bilirubin,Urine Negative (Negative); Blood,Urine Negative (Negative); Clarity,Urine Clear (Clear); Color,Urine Yellow (Yellow); Glucose,Urine (UA) Normal (Normal); Ketones,Urine 15 mg/dL (Negative); Leukocyte Esterase,Urine Negative (Negative); Nitrite,Urine Negative (Negative); PH,Urine 6.5 pH Units (5.0-8.0); Protein,Urine Trace mg/dL (Neg-Trace); Urobilinogen,Urine Normal (Normal)
[2017-05-08 19:10] LABS: Bacteria,Urine None Seen per hpf (None-Few); Hyaline Casts,Urine None Seen per lpf (None-Few); Squamous Epithelial Cell,Urine Moderate per lpf (None-Few); WBC,Urine 0-3 per hpf (0-3)
[2017-05-08] MEDS ORDERED: *HR* LORazepam 2 MG/ML VIAL IVP ONE (19:35)
--- NOTE | 2017-05-08 22:26 | Internal Med History&Physical ---
Date of Encounter: 05/08/17 Time of Encounter: 22:21 Assessment and Plan (1) Alcohol withdrawal Current visit: Yes Status: Acute Hallucinations likely from alcohol withdrawal possible DVT, will place CIWA protocol, IV thiamine will check EKG, if QT normal, then add zyprexia Qualifiers: Complication of substance-induced condition: with delirium Qualified Code(s ): F10.231 - Alcohol dependence with withdrawal delirium (2) Electrolyte abnormality Current visit: Yes Status: Acute hypokalmeia, replace orally Internal Medicine - H&P: HPI Chief complaint: hallucination Admitted From: Home Plans for Post Hospital Care: Home History of present illness: Mr. Pulliam is a 51 year old male who has history of alcoholism presenting emergency room for hallucination since yesterday. Patient has been drinking 6 packs beers daily over last 20 years, he decided to quit drinking 15 days ago. His last drink was 15 days ago. He said he has no withdrawal signs over last 15 days until yesterday his family noticed that that he has been hallucinating and the in and out of his real world, he was fantasy. Family was concerned about alcohol withdrawal and sent him to the emergency room. He emergency room lab shows hypokalemia potassium 2.9, otherwise unremarkable. drug screen is negative. Patient is going to be admitted for alcohol withdrawal. When I saw the patient, he is alert and oriented 3 Vitas is stable denies sweating no shaking. He denies active hallucination at this point Past Med Surg Social Fam HX - Past Medical History Medical history: no medical history, hypertension, other Psychiatric history: no psych history - Past Surgical History Surgical History: no surgical history, other - Social History Smoking Status: Former smoker Smokeless Tobacco Status: Yes Alcohol use: occasionally, heavy Drug use: none - Family History Mother Living Status: Still Living Hx Family Cardiac Disorders: No Hx Family Respiratory Disorders: No Hx Family Cancer: No Hx Family GI Disorders: No Hx Family Endocrine Disorder: No Hx Family Neuromuscular Disorders: No Hx Family Neurologic Disorders: No Hx Family HEENT Disorders: No Hx Family Autoimmune Disorders: No Father Living Status: Still Living Hx Family Cardiac Disorders: No Hx Family Respiratory Disorders: No Hx Family Cancer: No Hx Family GI Disorders: No Hx Family Endocrine Disorder: No Hx Family Neuromuscular Disorders: No Hx Family Neurologic Disorders: No Hx Family HEENT Disorders: No Hx Family Autoimmune Disorders: No Grandfather Living Status: Hx Family Cancer: Yes (Colon Cancer) Internal Medicine - H&P: Meds Folic Acid 1 mg PO DAILY #30 tablet 12/28/16 [Rx] Thiamine (B-1) [Vitamin B-1] 100 mg PO DAILY #30 tablet 12/28/16 [Rx] 3 Allergy/AdvReac Type Severity Reaction Status Date / Time lorazepam [From Ativan] Allergy See Verified 11/27/14 00:59 Comments All Systems PM: A 10-system review of systems was performed and is negative for pertinent findings except as documented above in the HPI. - Constitutional Vitals: Temp Pulse Resp BP Pulse Ox 98.0 F 81 16 154/109 98 05/08/17 20:40 05/08/17 21:25 05/08/17 20:40 05/08/17 20:40 05/08/17 20:40 General appearance: Present: A&O X 3, pleasant Exam: CONSTITUTIONAL: Patient appears as an age appropriate male well developed, in no acute distress. EYES Clear sclerae, bilateral pupils are equal, reactive to light and accommodation. Extraocular movements are intact RESPIRATORY: No accessory muscle use, bilateral clear to auscultation, no wheezing, no crackles/rales. CARDIOVASCULAR: Regular heart rate, normal S1 and S2, no murmurs GASTROINTESTINAL: bowel sounds present, soft, no tenderness. No hepatosplenomegaly. No bilateral CVA tenderness MUSCULOSKELETAL: Joints in normal range of motion, no clubbing, no edema, no cyanosis. Bilateral peripheral pulses 2+ LYMPHATIC no lymphadenopathy in neck, groin and axilla bilaterally, no thyromegaly. NEUROLOGIC: CN II to XII are grossly intact, no focal neurological deficit. Deep tendon reflexes 2+ bilaterally. Normal light touch sensation to upper and lower extremity PSYCHIATRIC: Oriented x3, with good insight, mood is euthymic. No hallucinations or delusions. SKIN: Skin warm and dry, no rashes, no open wound. Internal Med - H&P Results - Labs CBC & Chem 7: 05/08/17 17:39 05/08/17 17:39
[2017-05-08] MEDS ORDERED: diazePAM 10 MG/2 ML SYRINGE IVP PRN ×5 (22:29)
[2017-05-08] MEDS ORDERED: *HR* Promethazine 25 MG/ML VIAL IVP PRN (22:29)
[2017-05-09] MEDS: Folic Acid 1 MG TABLET PO SCH ×2 (00:16→09:06)
[2017-05-09] MEDS: diazePAM 10 MG TABLET PO SCH ×2 (00:16→09:06)
[2017-05-09] MEDS ORDERED: Thiamine (B-1) 100 MG TABLET PO SCH (09:00)
[2017-05-09] MEDS ORDERED: Vitamin B Complex/Vit C/Vit E 1 EACH TABLET PO SCH (09:00)
--- NOTE | 2017-05-09 11:11 | Discharge Summary ---
<Vasquez Iqbal - Last Filed: 05/09/17 15:33> Orders not resulted at time of discharge: Pending orders 05/09/17 06:00 EKG [ECG 12 lead ECG] [ECG] AM 0600 05/09/17 11:10 Basic Metabolic Panel Stat Magnesium Stat Date of Encounter: 05/09/17 Time of Encounter: 11:11 - Discharge Diagnosis (1) Hallucinations Priority: Primary Status: Acute (2) Hypomagnesemia Priority: Primary Status: Acute (3) Hypokalemia Priority: Primary Status: Resolved (4) Wernicke encephalopathy Priority: Secondary Status: Acute Hospital course: Mr. Pulliam is a 51 year old male with past medical history of alcoholism, Wernicke's encephalopathy, who presented to the emergency department yesterday with concern for hallucinations as he was having certain game of [employer] fantasies couple weeks ago with concern for possible delirium tremens after abrupt cessation of alcohol intake. Family was concerned and is brought him into the emergency department. Patient was not tachycardic, nondiaphoretic, however, on examination in the emergency department he was not oriented to time. Today, patient was oriented to person, place, time. He stated that he had not had any hallucinations since 2 weeks prior. Denied any fevers, chills, but admitted to having a flulike illness a couple weeks ago. This prompted his abrupt cessation of alcohol consumption. Physical exam of the patient was benign. Patient denied any history of psychiatric conditions, denied any history of psychiatric conditions in the family. Patient was hypokalemic and hypomagnesemic. Electrolytes were replenished. Patient was given vitamins and thiamine here as well. Upon initial physical exam, patient was alert and oriented to person, place, time. Patient was reviewed appropriate for discharge. However, prior to discharge, nursing staff reported that patient was having a conversation in the room by himself in regards to his IV. 1A was consulte to to evaluate the patient as he was cleared medically. I went and quickly evaluated the patient. I asked him if he was hearing voices. He denied that he was hearing voices but stated that he was having a conversation with a speaker that was attached to his chest. He was alert and oriented to person, place, time. Patient denied having any suicidal or homicidal ideations. Patient states that he lives at home but he had family that with see him. Patient left AGAINST MEDICAL ADVICE. He was given a prescription for multivitamins as well as a referral for psychiatry to evaluate the patient as outpatient. Patient knew and understood the risks of leaving AGAINST MEDICAL ADVICE that included but were not limited to . Patient was able to put his clothes on, was ambulating well, and appeared to have the capacity to make his own informed decisions as well as taking care of his daily needs. Patient knew that he was having hallucinations and knew that they were not real. - Time Spent with Patient Total time spent providing and/or coordinating discharge services: - Discharge Medications Prescriptions: Multivit-Min/FA/Lycopen/Lutein [A Thru Z Select Multivit Tab] 1 tab PO DAILY # 30 tablet Home Medications: Multivit-Min/FA/Lycopen/Lutein [A Thru Z Select Multivit Tab] 1 tab PO DAILY # 30 tablet 05/09/17 [Rx] Allergies/Adverse Reactions: 3 Allergy/AdvReac Type Severity Reaction Status Date / Time lorazepam [From Ativan] Allergy See Verified 11/27/14 00:59 Comments Date of admission: 05/08/17 20:15 Primary care physician: PCP NONE Consults: 05/08/17 22:32 Consult to [employer] [CONS] Routine Reason for SW Consult: alcohol rehab - Constitutional Vitals: Temp Pulse Resp BP Pulse Ox 98.5 F 85 18 118/98 100 05/09/17 07:21 05/09/17 07:21 05/09/17 07:21 05/09/17 07:21 05/09/17 07:21 General appearance: Present: A&O X 3, pleasant - Head Head exam: Present: atraumatic - Respiratory Respiratory exam: Present: CTAB. Absent: accessory muscle use - Cardiovascular Cardiovascular exam: Present: RRR - GI/Abdominal GI/Abdominal exam: Present: soft, no peritoneal signs. Absent: firm, guarding, rebound, tenderness - Neurological Exam Neurological exam: Present: CN II-XII intact, oriented X3 - Psychiatric Psychiatric exam: Present: normal affect, normal mood. Absent: agitated, anxious, depressed, flat affect, homicidal ideation, suicidal ideation Additional comments: Auditory hallucinations - Patient Status Disposition: Left Against Medical Advice Condition: Fair Functional capacity at discharge: independent ambulation - Discharge Instructions Follow Up With: Melodie Kurtz, [employer] [Advanced Practice Nurse] - 05/19/17 9:30 am <Elliot Strickland H - Last Filed: 05/09/17 17:57> Date of Encounter: 05/09/17 Hospital course: Mr. Pulliam is a 51 year old male - Time Spent with Patient Total time spent providing and/or coordinating discharge services: Date of admission: 05/08/17 20:15 Primary care physician: PCP NONE Consults: 05/08/17 22:32 Consult to [employer] [CONS] Routine Reason for SW Consult: alcohol rehab - Constitutional Vitals: Temp Pulse Resp BP Pulse Ox 98.5 F 78 20 143/98 97 05/09/17 11:28 05/09/17 11:28 05/09/17 11:28 05/09/17 11:28 05/09/17 11:28 - Attending Attestation The patient was aware of those hallucinations were not real, he was alert and oriented, not suicidal, did not express having the need to harm himself or others Left AGAINST MEDICAL ADVICE. Time spent 40 minutes I examined this patient and my medical decision-making was reviewed with the Resident Physician. I agree with the documented findings, disposition and treatment plan as described except to the extent set forth below.
[2017-05-09 11:30] VITALS: BP 143/98
[2017-05-09 13:09] LABS: BUN/Creatinine Ratio 18 (6-26); Blood Urea Nitrogen 9 mg/dL (6-20); Calcium 9.2 mg/dL (8.6-10.3); Carbon Dioxide 25 mEq/L (23-29); Chloride 101 mEq/L (98-107); Glucose 91 mg/dL (70-105); Magnesium 1.9 mg/dL (1.6-2.6); Osmolality,Calculated 280 (280-300); Potassium 3.3 mEq/L (3.5-5.1); Sodium 136 mEq/L (136-145); eGFR For African Americans > 60 (> 60); eGFR For Non-African Americans > 60 (> 60)
[2017-05-09] MEDS ORDERED: Thiamine (B-1) 100 MG, Folic Acid 1 MG in 0.9 % Sodium Chloride 100 ML IVPB SCH (16:00)
--- NOTE | 2017-05-10 08:09 | Electrocardiograph Report ---
[address] [address] Test Date: 2017-05-09 Pat Name: Jeovanny Pulliam Department: 110 Room: 2N13 Gender: M [employer] In[employer]: : 1965 Requested By: Stella Saeed Order Number: [id number] Reading MD: Mitzi Merino Measurements Intervals [place] Rate: 77 P: 71 PA: 169 QRS: 72 QRSD: 109 T: 52 QT: 429 QTc: 460 Interpretive Statements SINUS RHYTHM Electronically Signed On 05-10-2017 7:36:16 EDT by Mitzi Merino
--- NOTE | 2017-05-10 23:52 | Electrocardiograph Report ---
[place] [id number] Test Date: 2017-05-08 Pat Name: Jeovanny Pulliam Department: 103 Room: 2N13 Gender: M [employer]: : 1965 Requested By: Pietro Sanchez Order Number: [id number] Reading MD: Primitivo Jones DO Measurements Intervals [place] Rate: 88 P: 70 PA: 189 QRS: 48 QRSD: 105 T: 41 QT: 381 QTc: 426 Interpretive Statements SINUS RHYTHM Electronically Signed On 05-10-2017 23:51:39 EDT by Primitivo Jones DO
== END 2017-05-09 14:17 | disposition left against medical advice (07) ==
LOC: 2NNU 16:27 → EMEROO 16:27 → 2NNU 20:35
PROVIDERS: ADMIT Internal Medicine; ATTEND Internal Medicine

== ENCOUNTER 2017-05-09 22:45 | Inpatient (IN) ==
[2017-05-09 23:20] LABS: Basophils % 0.7 %; Eosinophils # 0.1 K/mcL (0.0-0.6); Eosinophils % 2.1 %; Hemoglobin 13.2 g/dL (12.9-16.9); Immature Granulocytes % 0.5 % (0-4); Lymphocytes # 1.2 K/mcL (0.6-4.6); Lymphocytes % 28.6 %; Mean Corpuscular Hemoglobin 31.8 pg (28.0-33.3); Mean Corpuscular Volume 96.4 fL (83.0-100.0); Mean Platelet Volume 9.3 fL (9.4-12.4); Monocytes # 0.5 K/mcL (0.0-1.3); Neutrophils # 2.4 K/mcL (1.6-8.9); Platelet Count 147 K/mcL (140-400); Red Blood Count 4.15 M/mcL (4.19-5.50); Red Cell Distribution Width 13.2 % (11.5-14.5); Segmented Neutrophils % 57.1 %
[2017-05-09 23:40] LABS: BUN/Creatinine Ratio 19 (6-26); Blood Urea Nitrogen 10 mg/dL (6-20); Calcium 9.5 mg/dL (8.6-10.3); Carbon Dioxide 27 mEq/L (23-29); Chloride 104 mEq/L (98-107); Glucose 94 mg/dL (70-105); Osmolality,Calculated 287 (280-300); Potassium 3.3 mEq/L (3.5-5.1); Sodium 139 mEq/L (136-145); eGFR For African Americans > 60 (> 60); eGFR For Non-African Americans > 60 (> 60)
[2017-05-10 00:49] LABS: Amphetamine Screen,Urine Negative ng/mL (Cutoff=1000); Barbiturate Screen,Urine Negative ng/mL (Cutoff=200); Benzodiazepines Screen,Urine Positive ng/mL (Cutoff=200); Cannabinoid Screen,Urine Negative ng/mL (Cutoff = 50); Cocaine Screen,Urine Negative ng/mL (Cutoff= 300); Opiate Screen,Urine Negative ng/mL (Cutoff=300); Phencyclidine Screen,Urine Negative ng/mL (Cutoff=25)
[2017-05-10 00:54] LABS: Acetaminophen < 1.0 mcg/mL (10-30); Ethanol < 10 mg/dL (0-10); Salicylate < 5.0 mg/dL (15.0-30.0)
[2017-05-10 01:02] LABS: Bilirubin,Urine Small (Negative); Blood,Urine Negative (Negative); Clarity,Urine Clear (Clear); Color,Urine Dark Yellow (Yellow); Glucose,Urine (UA) Normal (Normal); Ketones,Urine Trace mg/dL (Negative); Leukocyte Esterase,Urine Negative (Negative); Nitrite,Urine Negative (Negative); Protein,Urine Trace mg/dL (Neg-Trace); Specific Gravity,Urine > 1.030 (1.010-1.025); Urobilinogen,Urine Normal (Normal)
[2017-05-10 01:04] LABS: Bacteria,Urine None Seen per hpf (None-Few); Hyaline Casts,Urine None Seen per lpf (None-Few); Squamous Epithelial Cell,Urine Moderate per lpf (None-Few); WBC,Urine 0-3 per hpf (0-3)
--- NOTE | 2017-05-10 03:35 | Emergency Department Note ---
Disposition Clinical Impression: Alcohol abuse, Acute psychosis, Hallucinations Ankle pain, right Qualifiers: Chronicity: acute Qualified Code(s): M25.571 - Pain in right ankle and joints of right foot Disposition: Admitted As Inpatient Condition: Good Referrals: NONE,PCP [Primary Care Provider] - Forms: ED Satisfaction Letter Time of Disposition: 06:46 Psych HPI - General Chief Complaint: ED Psychiatric Symptoms Stated Complaint: hallucinations/alcohol detox Time Seen by Provider: 05/09/17 23:10 Source: patient Mode of arrival: ambulatory Limitations: no limitations Nursing Notes Reviewed: Yes Vital Signs Reviewed: Yes - History of Present Illness HPI Narrative: Patient is a 51-year-old male who presents to [facility] ED with concern for hallucinations. Patient's stepfather was present with him and voiced concern that this patient had wacky thoughts that did not make sense. Upon talking with the patient, he stated that he gets in arguments with his stepfather and says things that he does not mean. States he showed up at his stepfather house and that he had seemed surprised to see him there. Per stepfather, he was saying things that did not make sense. Patient has a history of alcoholism and states he has not had a drink in 16 days. His stepfather says it is probably more like 3 or 4 days. If medical clearance, reason: psychiatric condition Onset (ago): unknown History of similar episodes: Yes Alleged intoxication: No Associated symptoms: Reports: denies other symptoms. Denies: headache, shortness of breath, nausea, vomiting Treatments prior to arrival: none Self harm or harm to others: denies thoughts of harming self/others - Related Data Previous Rx's Medication Instructions Recorded Multivit-Min/FA/Lycopen/Lutein [A 1 tab PO DAILY #30 tablet 05/09/17 Thru Z Select Multivit Tab] Allergies Allergy/AdvReac Type Severity Reaction Status Date / Time lorazepam [From Ativan] Allergy See Verified 11/27/14 00:59 Comments All systems ED: reviewed and negative except as stated. Past Medical History - Past Medical History Attestation: Yes The following information was validated with the patient. Source: patient Medical history: Reports: no medical history, hypertension, other Surgical history: Reports: no surgical history, other Psychiatric history: Reports: no psych history - Social History Smoking Status: Former smoker Smokeless Tobacco Status: Yes Alcohol use: Reports: occasionally, heavy Drug use: Reports: none Physical Exam - General Limitations: no limitations General appearance: alert, in no apparent distress - Head Head exam: atraumatic, normocephalic, normal inspection - Eye Eye exam: Present: normal appearance, EOMI - ENT ENT exam: normal exam, normal oropharynx, mucous membranes moist - Neck Neck exam: Present: normal inspection, full ROM, trachea midline - Chest Chest inspection: Present: normal inspection, symmetric chest wall rise - Respiratory Respiratory exam: Present: normal lung sounds bilaterally - Cardiovascular Cardiovascular exam: Present: regular rate, normal rhythm, normal heart sounds - Abdominal Exam Abdominal exam: Present: soft, Non-Tender - Extremities Exam Extremities exam: Present: normal inspection, full ROM. Absent: tenderness, pedal edema - Neurological Exam Neurological exam: Present: alert, oriented X3 - Psychiatric Psychiatric exam: Present: normal affect, normal mood - Skin Skin exam: Present: warm, dry, intact, normal color Course Course Narrative: Patient seen and examined. Concern for possible hallucinations. Patient states he does not feel like he is having any hallucinations. However family states he is talking out of his head and talking to himself and time and then talking about some alternate reality. We will do medical clearance and then have patient evaluated by psychiatry. Patient also having right ankle pain. X- ray ordered. - Reevaluation(s) Reevaluation #1: Patient will be admitted to . Time: 06:46 Vital Signs Temperature 98.7 F 05/09/17 22:46 Pulse Rate 86 05/09/17 22:46 Respiratory Rate 20 05/09/17 22:46 Blood Pressure 145/99 05/09/17 22:46 O2 Sat by Pulse Oximetry 98 05/09/17 22:46 Temperature 98.7 F 05/09/17 22:46 Pulse Rate 57 05/10/17 03:49 Respiratory Rate 16 05/10/17 03:49 Blood Pressure 123/73 05/10/17 03:49 O2 Sat by Pulse Oximetry 97 05/10/17 03:49 Oxygen Delivery Oxygen Delivery Room Air Psych - Medical Records Medical records reviewed: Yes I reviewed the patient's medical records. - Lab Data Lab results reviewed: Yes I reviewed the patient's lab results. Result diagrams: 05/09/17 23:11 05/09/17 23:11 Lab Results 05/09/17 05/09/17 05/09/17 Range/Units 23:11 23:11 23:33 WBC 4.3 (4.3-11.1) K/mcL RBC 4.15 L (4.19-5.50) M/mcL Hgb 13.2 (12.9-16.9) g/dL Hct 40.0 (37.5-50.1) % MCV 96.4 (83.0-100.0) fL MCH 31.8 (28.0-33.3) pg MCHC 33.0 (31.6-35.5) g/dL RDW 13.2 (11.5-14.5) % Plt Count 147 (140-400) K/mcL MPV 9.3 L (9.4-12.4) fL Immature Gran % 0.5 (0-4) % Seg Neutrophils % 57.1 % Lymphocytes % 28.6 % Monocytes % 11.0 % Eosinophils % 2.1 % Basophils % 0.7 % Neutrophils # 2.4 (1.6-8.9) K/mcL Lymphocytes # 1.2 (0.6-4.6) K/mcL Monocytes # 0.5 (0.0-1.3) K/mcL Eosinophils # 0.1 (0.0-0.6) K/mcL Basophils # 0.0 (0.0-0.2) K/mcL Sodium 139 (136-145) mEq/L Potassium 3.3 L (3.5-5.1) mEq/L Chloride 104 (98-107) mEq/L Carbon Dioxide 27 (23-29) mEq/L BUN 10 (6-20) mg/dL Creatinine 0.53 L (0.70-1.30) mg/dL Est GFR ( Amer) > 60 (> 60) Est GFR (Non-Af Amer) > 60 (> 60) BUN/Creatinine Ratio 19 (6-26) Glucose 94 (70-105) mg/dL Calculated Osmolality 287 (280-300) Calcium 9.5 (8.6-10.3) mg/dL Urine Color Dark Yellow (Yellow) Urine Clarity Clear (Clear) Urine pH 6.0 (5.0-8.0) pH Units Ur Specific [place] > 1.030 H (1.010-1.025) Urine Protein Trace (Neg-Trace) mg/dL Urine Glucose (UA) Normal (Normal) mg/dL Urine Ketones Trace H (Negative) mg/dL Urine Blood Negative (Negative) Urine Nitrite Negative (Negative) Urine Bilirubin Small H (Negative) Urine Urobilinogen Normal (Normal) mg/dL Ur Leukocyte Esterase Negative (Negative) Urine Microscopic RBC 5-15 H (0-3) per hpf Urine Microscopic WBC 0-3 (0-3) per hpf Ur Squamous Epith Cells Moderate H (None-Few) per lpf Urine Bacteria None Seen (None-Few) per hpf Hyaline Casts None Seen (None-Few) per lpf Salicylates < 5.0 L (15.0-30.0) mg/dL Urine Opiates Screen (Vtqrlp=678) ng/mL Acetaminophen < 1.0 L (10-30) mcg/mL Ur Barbiturates Screen (Xfzcke=413) ng/mL Ur Phencyclidine Scrn (Cutoff=25) ng/mL Ur Amphetamines Screen (Iavodx=9186) ng/mL U Benzodiazepines Scrn (Ayadsh=901) ng/mL Urine Cocaine Screen (Cutoff= 300) ng/mL U Marijuana (THC) Screen (Cutoff = 50) ng/mL Ethyl Alcohol < 10 (0-10) mg/dL 05/09/17 Range/Units 23:33 WBC (4.3-11.1) K/mcL RBC (4.19-5.50) M/mcL Hgb (12.9-16.9) g/dL Hct (37.5-50.1) % MCV (83.0-100.0) fL MCH (28.0-33.3) pg MCHC (31.6-35.5) g/dL RDW (11.5-14.5) % Plt Count (140-400) K/mcL MPV (9.4-12.4) fL Immature Gran % (0-4) % Seg Neutrophils % % Lymphocytes % % Monocytes % % Eosinophils % % Basophils % % Neutrophils # (1.6-8.9) K/mcL Lymphocytes # (0.6-4.6) K/mcL Monocytes # (0.0-1.3) K/mcL Eosinophils # (0.0-0.6) K/mcL Basophils # (0.0-0.2) K/mcL Sodium (136-145) mEq/L Potassium (3.5-5.1) mEq/L Chloride (98-107) mEq/L Carbon Dioxide (23-29) mEq/L BUN (6-20) mg/dL Creatinine (0.70-1.30) mg/dL Est GFR ( Amer) (> 60) Est GFR (Non-Af Amer) (> 60) BUN/Creatinine Ratio (6-26) Glucose (70-105) mg/dL Calculated Osmolality (280-300) Calcium (8.6-10.3) mg/dL Urine Color (Yellow) Urine Clarity (Clear) Urine pH (5.0-8.0) pH Units Ur Specific [place] (1.010-1.025) Urine Protein (Neg-Trace) mg/dL Urine Glucose (UA) (Normal) mg/dL Urine Ketones (Negative) mg/dL Urine Blood (Negative) Urine Nitrite (Negative) Urine Bilirubin (Negative) Urine Urobilinogen (Normal) mg/dL Ur Leukocyte Esterase (Negative) Urine Microscopic RBC (0-3) per hpf Urine Microscopic WBC (0-3) per hpf Ur Squamous Epith Cells (None-Few) per lpf Urine Bacteria (None-Few) per hpf Hyaline Casts (None-Few) per lpf Salicylates (15.0-30.0) mg/dL Urine Opiates Screen Negative (Xgvpad=114) ng/mL Acetaminophen (10-30) mcg/mL Ur Barbiturates Screen Negative (Oztmir=843) ng/mL Ur Phencyclidine Scrn Negative (Cutoff=25) ng/mL Ur Amphetamines Screen Negative (Xzxhjg=2555) ng/mL U Benzodiazepines Scrn Positive H (Ajvyor=658) ng/mL Urine Cocaine Screen Negative (Cutoff= 300) ng/mL U Marijuana (THC) Screen Negative (Cutoff = 50) ng/mL Ethyl Alcohol (0-10) mg/dL Psychiatric Medical Clearance - Medical Clearance Checklist Does the patient have a NEW psychiatric condition?: No Any abnormalities indicating possible medical illness?: No Any history of medical issues?: No Medical History: (This Medical Record has been edited. Action required.) Cerebrovascular disease (Acute) Alcohol withdrawal (Suspected) Hypokalemia (Resolved) Hallucinosis (Acute) Abnormal EKG (Acute) Head injury (Acute) Abnormal liver function test (Acute) Abnormal urinalysis (Acute) Tachycardia (Acute) Transaminitis (Acute) UTI (urinary tract infection) (Acute) Wernickes encephalopathy (Resolved) DVT prophylaxis (Acute) Alcoholism (Chronic) Hypokalemia (Acute) Electrolyte abnormality (Acute) Encephalopathy (Acute) Wernicke encephalopathy (Acute) Ankle sprain (Acute) Alcohol abuse (Acute) Alcohol withdrawal (Acute) Hypomagnesemia (Acute) Hallucinations (Acute) Ankle pain, right (Acute) Acute psychosis (Acute) Altered mental status (Acute) UTI (urinary tract infection) (Acute) Dissociative amnesia with dissociative fugue (Acute) Hypokalemia (Resolved) Transaminitis (Chronic) Rhabdomyolysis (Acute) (This Medical Record has been edited. Action required.) No Social History Section defined Any abnormal vital signs prior to transfer?: No Current Vitals: Last Vital Signs Temp 98.7 F 05/09/17 22:46 Pulse 57 05/10/17 03:49 Resp 16 05/10/17 03:49 BP 123/73 05/10/17 03:49 Pulse Ox 97 05/10/17 03:49 Is the patient intoxicated or cognitively impaired?: No Psychiatric Lab Panel: Drug Levels and Toxicity 05/09/17 05/09/17 23:11 23:33 Urine Opiates Screen Negative Acetaminophen < 1.0 L Ur Barbiturates Screen Negative Ur Phencyclidine Scrn Negative Ur Amphetamines Screen Negative U Benzodiazepines Scrn Positive H Urine Cocaine Screen Negative U Marijuana (THC) Screen Negative Ethyl Alcohol < 10 Any abnormalities on the physical exam?: No Any abnormal labs?: No Abnormal Labs: Abnormal lab results RBC 4.15 M/mcL (4.19-5.50) L 05/09/17 23:11 MPV 9.3 fL (9.4-12.4) L 05/09/17 23:11 Potassium 3.3 mEq/L (3.5-5.1) L 05/09/17 23:11 Creatinine 0.53 mg/dL (0.70-1.30) L 05/09/17 23:11 Ur Specific [place] > 1.030 (1.010-1.025) H 05/09/17 23:33 Urine Ketones Trace mg/dL (Negative) H 05/09/17 23:33 Urine Bilirubin Small (Negative) H 05/09/17 23:33 Urine Microscopic RBC 5-15 per hpf (0-3) H 05/09/17 23:33 Ur Squamous Epith Cells Moderate per lpf (None-Few) H 05/09/17 23:33 Salicylates < 5.0 mg/dL (15.0-30.0) L 05/09/17 23:11 Acetaminophen < 1.0 mcg/mL (10-30) L 05/09/17 23:11 U Benzodiazepines Scrn Positive ng/mL (Fppydh=764) H 05/09/17 23:33 Does the patient require durable medical equiptment?: No Is the patient ambulatory?: Yes Is the patient a fall risk?: No Has the patient been medically cleared?: Yes Any acute medical condition require Tx prior to transfer?: No Attestation Statement - Attestation Attestation: I, Davey Lundberg DO, examined this patient [id number] and my medical decision-making was reviewed with Dr. Karen Bailey, Resident Physician. I agree with the documented findings, disposition and treatment plan as described except to the extent set forth below. Please see my progress notes for details. 51-year-old male presents emergency room in the care of the family for evaluation of hallucinations and psychiatric issues. Patient denies any symptoms. Denies suicidal or homicidal ideation. Denied chest pain shortness of breath headaches vision changes nausea vomiting or diarrhea. Denies any fevers or chills. No trauma or injury. Physical exam is unremarkable. Lungs are clear. Abdomen is soft. Screening evaluation will be completed for psychiatric related illness and psychiatric team will evaluate. Patient's family did leave the emergency room prior to his evaluation be completed. He denies any drugs of abuse or alcohol abuse at this time. 0700 Patient is accepted our facility for further management of his hallucinations and psychiatric related illness. Crivitz slip was signed. Admission process to be completed.
[2017-05-10] MEDS ORDERED: MOM Conc 10 ML UD.LIQ PO PRN (13:23)
[2017-05-10] MEDS ORDERED: *HR* LORazepam 1 MG TABLET PO PRN (13:23)
[2017-05-10] MEDS ORDERED: Mag Hydrox/Al Hydrox/Simeth 30 ML UDC PO PRN (13:23)
[2017-05-10] MEDS ORDERED: Haloperidol Lactate 5 MG/ML VIAL IM PRN (13:23)
[2017-05-10] MEDS ORDERED: *HR* LORazepam 2 MG/ML VIAL IM PRN (13:23)
[2017-05-10] MEDS ORDERED: Acetaminophen 325 MG TABLET PO PRN (13:23)
--- NOTE | 2017-05-10 16:49 | Psychiatry History & Physical ---
Date of Encounter: 05/10/17 Time of Encounter: 16:30 History of Present Illness Patient Stated Chief Complaint: I am here, delusional Medicare Admission Attestation: For traditional Medicare patients the provided hospital inpatient services are reasonable and necessary and in the case of services not specified as inpatient -only under 42 CFR 419.22 (n), that they are appropriately provided as inpatient services in accordance 42 CFR 412.3. For Critical Access Hospital the patient may reasonably be expected to be discharged or transferred to a hospital within 96 hours after admission to the Critical Access Hospital. Admitted From: Home Plans for Post Hospital Care: Home History of Present Illness: Mr. Pulliam is a 51 year old male Patient presents with delusions he reports that there is a separate delusions that are like a story. He is agreed to come to the hospital for further evaluations and to help sleep. He gave up drinking 17 days ago Past Med Surg Social Fam HX - Past Medical History Medical history: no medical history, hypertension, other - Past Psychiatric History Psychiatric history: Reports: previous psychiatric hospitalization Family psychiatric history: Unknown - Past Surgical History Surgical History: no surgical history, other - Social History Smoking Status: Former smoker Smokeless Tobacco Status: Yes Alcohol use: occasionally, heavy Drug use: none - Family History Mother Adopted: [place]: [place] Family Member Ethnicity: Non- Living Status: Age at : 73 Cause of : Alzheimers Dementia Hx Family Cardiac Disorders: No Hx Family Respiratory Disorders: No Hx Family Cancer: No Hx Family GI Disorders: No Hx Family Genitourinary Disorders: No Hx Family Endocrine Disorder: No Hx Family Musculoskeletal Disorders: No Hx Family Neuromuscular Disorders: No Hx Family Neurologic Disorders: Yes (Alzheimers) Hx Family HEENT Disorders: No Hx Family Autoimmune Disorders: No Hx Family Reproductive Disorders: No Hx Family Psychosocial Disorders: No Hx Family Medical Disorders: No Father Name: Steven Pulliam Age: 76 Family Member Ethnicity: Non- Living Status: Still Living Hx Family Cardiac Disorders: No Hx Family Respiratory Disorders: Yes Hx Family Cancer: No Hx Family GI Disorders: No Hx Family Genitourinary Disorders: No Hx Family Endocrine Disorder: Yes (DM 2) Hx Family Musculoskeletal Disorders: No Hx Family Neuromuscular Disorders: No Hx Family Neurologic Disorders: No Hx Family HEENT Disorders: No Hx Family Autoimmune Disorders: No Hx Family Reproductive Disorders: No Hx Family Psychosocial Disorders: ("He is an asshole sometimes but other than that he is ok") Hx Family Medical Disorders: No Grandfather Living Status: Hx Family Cancer: Yes (Colon Cancer) Medications & Allergies Multivit-Min/FA/Lycopen/Lutein [A Thru [facility] Multivit Tab] 1 tab PO DAILY # 30 tablet 05/09/17 [Rx] 3 Allergy/AdvReac Type Severity Reaction Status Date / Time lorazepam [From Ativan] Allergy See Verified 11/27/14 00:59 Comments Review of Systems ROS limited: due to patient condition Constitutional: Denies: fever, chills, weakness, weight change Eyes: Denies: eye pain, vision change Ears, Nose, Throat: Denies: ear pain, throat pain, dental pain, hearing loss, congestion Cardiovascular: Denies: chest pain, palpitations, dyspnea on exertion Respiratory: Denies: cough, dyspnea, wheezes Gastrointestinal: Denies: abdominal pain, nausea, vomiting, diarrhea, constipation Genitourinary male: Denies: urgency, dysuria, frequency, genital lesions Musculoskeletal: Denies: joint swelling, joint pain Integumentary: Denies: rash, lesions, pruritus Neurological: Denies: headache, weakness, numbness, memory loss Psychiatric: Reports: depression, abnormal sleep pattern, difficulty concentrating Endocrine: Denies: fatigue, heat or cold intolerance Hematologic/Lymphatic: Denies: easy bruising, lymphadenopathy Allergic/Immunologic: Denies: urticaria, itchy eyes Exam - HEENT Head exam IM: Present: atraumatic Eye exam IM: Present: EOMI, normal appearance, PERRL ENT exam IM: Present: normal exam - Neurological Neurological exam: Present: CN II-XII intact - Respiratory Respiratory exam IM: Present: CTAB - GI/Abdominal GI/Abdominal exam IM: Present: normal bowel sounds, soft. Absent: tenderness - Extremities Extremities exam IM: Present: full ROM - Skin Skin exam IM: Present: dry, warm - Constitutional Vitals: Temp Pulse Resp BP Pulse Ox 98.8 F 70 16 131/81 95 05/10/17 10:20 05/10/17 10:20 05/10/17 10:20 05/10/17 10:20 05/10/17 10:20 General appearance: age & developmentally appropriate - Musculoskeletal Gait: normal Station: relaxed Strength & Tone: normal for patient - Psychiatric Patient Orientation: Yes Person, Yes Time, Yes Place Level of alertness: Alert Behavior: calm, cooperative Psychomotor activity: Slowed Eye Contact: Minimal Contact Mood Description: Anxious Affect description: anxious Speech Volume: Normal Speech pattern: normal rate, normal rhythm, normal tone, fluent, spontaneous Language & Vocabulary: consistent with education Thought Process: Evasive, Confabulation Thought Content: Yes Paranoid delusion Perceptual Disturbances: Yes Reacting to internal stimuli Attention Span Ability: Capable of Sustained Attention Memory Description: Immediate Intact Patient Reliability: Questionable Historian Fund of knowledge: Yes abstraction ability Intelligence Estimate: Average Judgment: Limited Insight: Minimal Results - Labs Labs: Laboratory Last Values WBC 4.3 K/mcL (4.3-11.1) 05/09/17 23:11 RBC 4.15 M/mcL (4.19-5.50) L 05/09/17 23:11 Hgb 13.2 g/dL (12.9-16.9) 05/09/17 23:11 Hct 40.0 % (37.5-50.1) 05/09/17 23:11 MCV 96.4 fL (83.0-100.0) 05/09/17 23:11 MCH 31.8 pg (28.0-33.3) 05/09/17 23:11 MCHC 33.0 g/dL (31.6-35.5) 05/09/17 23:11 RDW 13.2 % (11.5-14.5) 05/09/17 23:11 Plt Count 147 K/mcL (140-400) 05/09/17 23:11 MPV 9.3 fL (9.4-12.4) L 05/09/17 23:11 Immature Gran % 0.5 % (0-4) 05/09/17 23:11 Seg Neutrophils % 57.1 % 05/09/17 23:11 Lymphocytes % 28.6 % 05/09/17 23:11 Monocytes % 11.0 % 05/09/17 23:11 Eosinophils % 2.1 % 05/09/17 23:11 Basophils % 0.7 % 05/09/17 23:11 Neutrophils # 2.4 K/mcL (1.6-8.9) 05/09/17 23:11 Lymphocytes # 1.2 K/mcL (0.6-4.6) 05/09/17 23:11 Monocytes # 0.5 K/mcL (0.0-1.3) 05/09/17 23:11 Eosinophils # 0.1 K/mcL (0.0-0.6) 05/09/17 23:11 Basophils # 0.0 K/mcL (0.0-0.2) 05/09/17 23:11 Sodium 139 mEq/L (136-145) 05/09/17 23:11 Potassium 3.3 mEq/L (3.5-5.1) L 05/09/17 23:11 Chloride 104 mEq/L (98-107) 05/09/17 23:11 Carbon Dioxide 27 mEq/L (23-29) 05/09/17 23:11 BUN 10 mg/dL (6-20) 05/09/17 23:11 Creatinine 0.53 mg/dL (0.70-1.30) L 05/09/17 23:11 Est GFR ( Amer) > 60 (> 60) 05/09/17 23:11 Est GFR (Non-Af Amer) > 60 (> 60) 05/09/17 23:11 BUN/Creatinine Ratio 19 (6-26) 05/09/17 23:11 Glucose 94 mg/dL (70-105) 05/09/17 23:11 Calculated Osmolality 287 (280-300) 05/09/17 23:11 Calcium 9.5 mg/dL (8.6-10.3) 05/09/17 23:11 Urine Color Dark Yellow (Yellow) 05/09/17 23:33 Urine Clarity Clear (Clear) 05/09/17 23:33 Urine pH 6.0 pH Units (5.0-8.0) 05/09/17 23:33 Ur Specific [place] > 1.030 (1.010-1.025) H 05/09/17 23:33 Urine Protein Trace mg/dL (Neg-Trace) 05/09/17 23:33 Urine Glucose (UA) Normal mg/dL (Normal) 05/09/17 23:33 Urine Ketones Trace mg/dL (Negative) H 05/09/17 23:33 Urine Blood Negative (Negative) 05/09/17 23:33 Urine Nitrite Negative (Negative) 05/09/17 23:33 Urine Bilirubin Small (Negative) H 05/09/17 23:33 Urine Urobilinogen Normal mg/dL (Normal) 05/09/17 23:33 Ur Leukocyte Esterase Negative (Negative) 05/09/17 23:33 Urine Microscopic RBC 5-15 per hpf (0-3) H 05/09/17 23:33 Urine Microscopic WBC 0-3 per hpf (0-3) 05/09/17 23:33 Ur Squamous Epith Cells Moderate per lpf (None-Few) H 05/09/17 23:33 Urine Bacteria None Seen per hpf (None-Few) 05/09/17 23:33 Hyaline Casts None Seen per lpf (None-Few) 05/09/17 23:33 Salicylates < 5.0 mg/dL (15.0-30.0) L 05/09/17 23:11 Urine Opiates Screen Negative ng/mL (Bedzza=033) 05/09/17 23:33 Acetaminophen < 1.0 mcg/mL (10-30) L 05/09/17 23:11 Ur Barbiturates Screen Negative ng/mL (Ijknhb=693) 05/09/17 23:33 Ur Phencyclidine Scrn Negative ng/mL (Cutoff=25) 05/09/17 23:33 Ur Amphetamines Screen Negative ng/mL (Ykpfdo=4762) 05/09/17 23:33 U Benzodiazepines Scrn Positive ng/mL (Hnlpxp=221) H 05/09/17 23:33 Urine Cocaine Screen Negative ng/mL (Cutoff= 300) 05/09/17 23:33 U Marijuana (THC) Screen Negative ng/mL (Cutoff = 50) 05/09/17 23:33 Ethyl Alcohol < 10 mg/dL (0-10) 05/09/17 23:11 Assessment and Plan (1) Alcohol dependence with alcohol-induced persisting amnestic disorder Current visit: Yes Status: Acute Plan: Admit inpatient for safety and stabilization, Close observation, Group Therapy, Monitor sleep Risks, benefits, side effects, alternatives discussed w /pt: Yes Patient agreeable to treatment: Yes Plans for Post Hospital Care: Home Estimated Length of Stay (Days): 5 (2) 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
[2017-05-10] MEDS: traZODone 50 MG TABLET PO PRN (21:08)
[2017-05-10] MEDS: hydrOXYzine pamoate 25 MG CAPSULE PO PRN (21:08)
[2017-05-11] MEDS: Folic Acid 1 MG TABLET PO SCH (08:39)
[2017-05-11] MEDS: Vitamin B Complex/Vit C/Vit E 1 EACH TABLET PO SCH (08:39)
[2017-05-11] MEDS: Multivit/Ca/Min/Fe/FA 1 TAB TABLET PO SCH (08:39)
--- NOTE | 2017-05-11 11:52 | Psychiatry Progress Note ---
Date of Encounter: 05/11/17 Time of Encounter: 11:30 Subjective Interval history: Mr. Montes is a 52-year-old white male. He is presented with a variety of problems and has been determined to be delusional. The delusions are fixed false beliefs that he believes have taken place since September 2016. 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 The patient was tested using the cowboy story. His memory is actually very good and he was able to remember things within a 2- minute period of time. He was able to do reasoning. He no signs of executive deficit. He was correct on the Construction Technology Instructor story. However after 5-10 minutes his memory deteriorated not only did he not remember 3 of the 5 major points in the cowboy story he had delusional conviction that I had said the name espinosa when I would say the name Pelsor. And while I did not say the name Jony he did not remember that in the story was [place]. The patient continued to persist that this was in fact when I sat and he could not recall me saying otherwise. He did not confabulate other items in the story or create fictional characters. He did not misidentify me. He has been alert and oriented he reports that he has an allergic reaction to Ativan and that sort of paradoxically disinhibited since he reports that the last time he was detoxified was in the hospital and he had 2 banana bags. The patient has been treated with thiamine and takes thiamin regularly. The patient has a high level of education with a master's in business he is hoping to get a job where he will help a friend. Nonetheless the patient's retrospective knowledge from the period of time of December through April 2017 is fuzzy and he cannot recall some items and gives general information about what he did on the major holidays he reports this started after a fall where he struck his here in September 2016. The patient's head CT was read as normal and has been unchanged on multiple readings. The patient's MRI on the other hand has shown vascular insult with small T2 FLAIR images generally in the white matter. Thoughts the patient's presentation is of a psychosis related to thiamine deficiency. He is now free of alcohol but continues with this memory deficit is sufficient to say that if given 5 items to remember he will misidentify 2 of the 5 within 5 minutes. This could cause further problems in his work and home life. He can function well in AA and has used that to maintain his sobriety. The patient slept well with trazodone he also used Vistaril so I will and scheduled dose of trazodone. The patient may benefit from medicine to enhance memory such as Aricept will begin a trial that tonight. The patient may also need to reconstruct events of the past 3-6 months. 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 This would further complicate his efforts The patient had this explained to him. Among the examples I gave was Aurelio from the man who mistook his for a hat and the movie [place]ento Review of Systems Psychiatric: Reports: depression, abnormal sleep pattern, confusion, memory loss , difficulty concentrating Results - Vital Signs Vital Signs: Temp Pulse Resp BP Pulse Ox 97.9 F 83 16 123/87 95 05/11/17 09:00 05/11/17 09:00 05/11/17 09:00 05/11/17 09:00 05/10/17 10:20 Assessment and Plan (1) Alcohol dependence with alcohol-induced persisting amnestic disorder Current visit: Yes Status: Acute Plan: Continue hospitalization, Close observation Risks, benefits, side effects, alternatives discussed w/pt: Yes Patient agreeable to treatment: Yes (2) 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 Current visit: Yes Status: Acute Plan: Continue hospitalization, Close observation, Encourage participation in unit milieu, Secure weapons (3) 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 Current visit: Yes Status: Ruled-out Plan: Continue hospitalization, Close observation, Encourage participation in unit milieu, Monitor appetite, Family/Supportive other meeting Risks, benefits , side effects, alternatives discussed w/pt: Yes Patient agreeable to treatment: Yes (4) Wernickes encephalopathy Current visit: No Status: Resolved (5) Psychotic disorder with delusions due to known physiological condition Current visit: Yes Status: Acute Plan: Continue hospitalization, Close observation, Encourage participation in unit milieu Risks, benefits, side effects, alternatives discussed w/pt: Yes Patient agreeable to treatment: Yes Consult Discharge Plan - Plan Referrals: NONE,PCP [Primary Care Provider] - Psychiatry Exam - Constitutional Vitals: Temp Pulse Resp BP Pulse Ox 97.9 F 83 16 123/87 95 05/11/17 09:00 05/11/17 09:00 05/11/17 09:00 05/11/17 09:00 05/10/17 10:20 General appearance: age & developmentally appropriate, well-groomed, well- nourished - Musculoskeletal Gait: normal Station: relaxed Strength & Tone: normal for patient - Psychiatric Patient Orientation: Yes Person, Yes Time, Yes Place Level of alertness: Alert Behavior: calm, cooperative Psychomotor activity: Normal Eye Contact: Maintains Eye Contact Mood Description: Euthymic/stable Affect description: congruent with mood, full range Speech Volume: Normal Speech pattern: normal rate, normal rhythm, normal tone, fluent, spontaneous Language & Vocabulary: consistent with education Thought Process: Linear, Goal Oriented Thought Content: No Suicidal ideation, No Homicidal ideation, No Overt delusions , Yes Ideas of reference, Yes Paranoid delusion, Yes Obsessive thoughts Perceptual Disturbances: No Auditory hallucinations, No Visual hallucinations Attention Span Ability: Capable of Focused Attention Memory Description: Immediate Impaired, Recent Impaired, Remote Impaired Patient Reliability: Questionable Historian Fund of knowledge: Yes abstraction ability, Yes aware of current events Intelligence Estimate: Above [place] Judgment: Fair Insight: Partial
[2017-05-11] MEDS: traZODone 50 MG TABLET PO PRN (21:31)
[2017-05-11] MEDS: hydrOXYzine pamoate 25 MG CAPSULE PO PRN (21:33)
[2017-05-12] MEDS: Folic Acid 1 MG TABLET PO SCH (08:56)
[2017-05-12] MEDS: Vitamin B Complex/Vit C/Vit E 1 EACH TABLET PO SCH (08:56)
[2017-05-12] MEDS: Multivit/Ca/Min/Fe/FA 1 TAB TABLET PO SCH (08:56)
--- NOTE | 2017-05-12 12:04 | Psychiatry Progress Note ---
Date of Encounter: 05/12/17 Time of Encounter: 11:45 Subjective Interval history: The patient was still able to sleep last night. He tolerated 5 mg of Aricept. The patient plans to sign in and agrees to stay in the hospital. He has the delusion or confabulation that his mother is not alive. However, he will call her house to see if she is they are if she talks to him on the phone then he thinks that he would believe that she is there. She still has some delusional conviction about things that he is remembered. He is able to identify that there are some things that he cannot remember or he may reconstructed area he is attempting to reconstruct some of the past events. A family meeting would be helpful to identify his deficits. The patient is followed by [facility]. Perhaps she will be able to see the psychiatrist Dr. Dior. The patient can also be scheduled with us psychologist for neuropsychological testing. 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 We will increase the Aricept to 10 mg daily at bedtime. Will place him on trazodone 100 mg daily at bedtime. The patient wants to take hydroxyzine as needed for sleep and this helps to prevent myoclonic jerks prior to bedtime. However I did discuss the drug drug interaction between Aricept and hydroxyzine although one is within the central nervous system and the other may have nonspecific effects on the peripheral nervous system Review of Systems Psychiatric: Reports: depression, abnormal sleep pattern, confusion, memory loss , difficulty concentrating Results - Vital Signs Vital Signs: Temp Pulse Resp BP Pulse Ox 98.4 F 66 16 125/88 95 05/11/17 20:13 05/11/17 20:13 05/11/17 20:13 05/11/17 20:13 05/10/17 10:20 Assessment and Plan (1) Alcohol dependence with alcohol-induced persisting amnestic disorder Current visit: Yes Status: Acute Plan: Continue hospitalization, Close observation, Suicide Precautions per unit protocol, Monitor sleep Risks, benefits, side effects, alternatives discussed w/pt: Yes Patient agreeable to treatment: Yes (2) 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 Current visit: Yes Status: Acute Plan: Continue hospitalization, Family/Supportive other meeting Risks, benefits, side effects, alternatives discussed w/pt: Yes Patient agreeable to treatment: Yes (3) 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 Current visit: Yes Status: Ruled-out Plan: Continue hospitalization, Encourage participation in unit milieu, Group Therapy Risks, benefits, side effects, alternatives discussed w/pt: Yes Patient agreeable to treatment: Yes (4) Wernickes encephalopathy Current visit: No Status: Resolved Plan: Continue hospitalization, Family/Supportive other meeting Risks, benefits, side effects, alternatives discussed w/pt: Yes Patient agreeable to treatment: Yes (5) Psychotic disorder with delusions due to known physiological condition Current visit: Yes Status: Acute Plan: Continue hospitalization, Close observation, Encourage participation in unit milieu, Secure weapons, Family/Supportive other meeting Risks, benefits, side effects, alternatives discussed w/pt: Yes Patient agreeable to treatment : Yes Consult Discharge Plan - Plan Referrals: [facility] [Other] (The above appointment is with [facility] for outpatient mental health counseling services and testing as needed.) [facility] [Outside] - 05/19/17 1:30 pm (The above appointment is with Dr. Ricks for primary healthcare and medication management services.) Psychiatry Exam - Constitutional Vitals: Temp Pulse Resp BP Pulse Ox 98.4 F 66 16 125/88 95 05/11/17 20:13 05/11/17 20:13 05/11/17 20:13 05/11/17 20:13 05/10/17 10:20 General appearance: age & developmentally appropriate, well-groomed, well- nourished - Musculoskeletal Gait: normal Station: relaxed Strength & Tone: normal for patient - Psychiatric Patient Orientation: Yes Person, Yes Time, Yes Place Level of alertness: Alert Behavior: calm, cooperative Psychomotor activity: Normal Eye Contact: Maintains Eye Contact Mood Description: Euthymic/stable Affect description: congruent with mood Speech Volume: Normal Speech pattern: normal rate Language & Vocabulary: consistent with education Thought Process: Confabulation Thought Content: Yes Paranoid delusion Perceptual Disturbances: Yes Depersonalization Attention Span Ability: Capable of Focused Attention Memory Description: Immediate Impaired, Remote Impaired Patient Reliability: Questionable Historian Fund of knowledge: Yes average Intelligence Estimate: Above [place] Judgment: Limited Insight: Minimal
[2017-05-12] MEDS: traZODone 50 MG TABLET PO SCH (21:34)
[2017-05-12] MEDS: hydrOXYzine pamoate 25 MG CAPSULE PO PRN (22:10)
[2017-05-13] MEDS: Multivit/Ca/Min/Fe/FA 1 TAB TABLET PO SCH (08:58)
[2017-05-13] MEDS: Vitamin B Complex/Vit C/Vit E 1 EACH TABLET PO SCH (08:58)
[2017-05-13] MEDS: Folic Acid 1 MG TABLET PO SCH (08:58)
--- NOTE | 2017-05-13 16:18 | Psychiatry Progress Note ---
Date of Encounter: 05/13/17 Time of Encounter: 16:15 Subjective Interval history: The patient remains involved in his treatment. He is trying to cope with things he believes that his mother might be but said that he might call her to verify that. The patient is tolerating Aricept at 10 mg daily at bedtime. He is able to recognize his memory deficit and is struggling to reach construct. He is out on the unit and generally friendly and cooperative a family meeting has been suggested Review of Systems Psychiatric: Reports: depression, abnormal sleep pattern, confusion, memory loss , difficulty concentrating Results - Vital Signs Vital Signs: Temp Pulse Resp BP Pulse Ox 98.2 F 67 16 137/85 95 05/13/17 09:13 05/13/17 09:13 05/13/17 09:13 05/13/17 09:13 05/10/17 10:20 Assessment and Plan (1) Alcohol dependence with alcohol-induced persisting amnestic disorder Current visit: Yes Status: Acute Plan: Continue hospitalization, Close observation, Suicide Precautions per unit protocol Risks, benefits, side effects, alternatives discussed w/pt: Yes Patient agreeable to treatment: Yes (2) 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 Current visit: Yes Status: Acute Plan: Continue hospitalization, Encourage participation in unit milieu, Monitor sleep Risks, benefits, side effects, alternatives discussed w/pt: Yes Patient agreeable to treatment: Yes (3) 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 Current visit: Yes Status: Ruled-out Plan: Group Therapy, Monitor appetite, Family/Supportive other meeting Risks, benefits, side effects, alternatives discussed w/pt: Yes Patient agreeable to treatment: Yes (4) Wernickes encephalopathy Current visit: No Status: Resolved Plan: Family/Supportive other meeting Risks, benefits, side effects, alternatives discussed w/pt: Yes Patient agreeable to treatment: Yes (5) Psychotic disorder with delusions due to known physiological condition Current visit: Yes Status: Acute Plan: Continue hospitalization, Suicide Precautions per unit protocol, Encourage participation in unit milieu Risks, benefits, side effects, alternatives discussed w/pt: Yes Patient agreeable to treatment: Yes Consult Discharge Plan - Plan Additional Instructions: Patient will resume regular AA attendance on discharge. [facility]errals: [facility] [Other] - 05/20/17 10:00 am (The above appointment is with [facility] for outpatient mental health counseling services and testing as needed.) [facility] [place] [Outside] - 05/19/17 1:30 pm (The above appointment is with Dr. Ricks for primary healthcare and medication management services.) Psychiatry Exam - Constitutional Vitals: Temp Pulse Resp BP Pulse Ox 98.2 F 67 16 137/85 95 05/13/17 09:13 05/13/17 09:13 05/13/17 09:13 05/13/17 09:13 05/10/17 10:20 General appearance: age & developmentally appropriate, well-groomed, well- nourished - Musculoskeletal Gait: normal Station: relaxed Strength & Tone: normal for patient - Psychiatric Patient Orientation: Yes Person, Yes Time, Yes Place Level of alertness: Alert Behavior: calm, nervous Psychomotor activity: Normal Eye Contact: Maintains Eye Contact Mood Description: Anxious Affect description: congruent with mood, full range Speech Volume: Normal Speech pattern: normal rate, normal rhythm, normal tone, fluent, spontaneous Language & Vocabulary: consistent with education Thought Process: Linear, Goal Oriented Thought Content: No Suicidal ideation, No Homicidal ideation, Yes Preoccupation Perceptual Disturbances: No Auditory hallucinations, No Visual hallucinations Attention Span Ability: Capable of Focused Attention Memory Description: Immediate Impaired, Recent Impaired, Remote Impaired Patient Reliability: Questionable Historian Fund of knowledge: Yes abstraction ability, Yes aware of current events Intelligence Estimate: Average Judgment: Limited Insight: Partial
[2017-05-13] MEDS: hydrOXYzine pamoate 25 MG CAPSULE PO PRN (21:28)
[2017-05-13] MEDS: traZODone 50 MG TABLET PO SCH (21:28)
[2017-05-14] MEDS: Vitamin B Complex/Vit C/Vit E 1 EACH TABLET PO SCH (09:16)
[2017-05-14] MEDS: Multivit/Ca/Min/Fe/FA 1 TAB TABLET PO SCH (09:16)
[2017-05-14] MEDS: Folic Acid 1 MG TABLET PO SCH (09:16)
[2017-05-14] MEDS: Nicotine 21 MG PATCH.TD24 TD SCH (13:17)
[2017-05-14] MEDS: Thiamine (B-1) 100 MG TABLET PO SCH (13:17)
--- NOTE | 2017-05-14 16:21 | Psychiatry Progress Note ---
Date of Encounter: 05/14/17 Time of Encounter: 09:30 Subjective Interval history: Patient seen adn evaluated by a multidsicplinary treatment team. There were no reported behavioral issues or incident overnight. Patient was calm, cooperative and well related. He reported doing well with regimen. He is compliant with his medications and denied any noted side effect. Patient is logical and goal directed with non non delusional. He mentioned he was brought in to the hospital for hallucination and delusion. Patient endorsed intermittent lapsed in memory since 10/07. He reported a long his on alcohol with multiple rehabs. Patient reported 17days of sobriety prior to his admission to the hospital. He reported not sleeping for 3 days prior to his recent psychotic episode ad endorsed similar episodes in the past following days of not sleeping most recent 01/07. Patient denied problems with sleep or appetite. On review of symptoms, he denied any mood or psychotic symptoms including AH/VH/SI/HI. Patient will continue to benefit from additional hospitalization to optimize stabilization. Review of Systems Constitutional: Denies: fever, chills, weakness, weight change Cardiovascular: Denies: chest pain, palpitations, dyspnea on exertion Respiratory: Denies: cough, dyspnea, wheezes Gastrointestinal: Denies: abdominal pain, nausea, vomiting, diarrhea, constipation Musculoskeletal: Denies: joint swelling, joint pain Neurological: Denies: headache, weakness, numbness, memory loss Psychiatric: Reports: depression, abnormal sleep pattern, confusion, memory loss , difficulty concentrating Results - Vital Signs Vital Signs: Temp Pulse Resp BP Pulse Ox 98.1 F 63 16 133/92 95 05/14/17 09:00 05/14/17 09:00 05/14/17 09:00 05/14/17 09:00 05/10/17 10:20 Assessment and Plan (1) Mood and affect disturbance Current visit: Yes Status: Acute (2) Alcohol dependence with alcohol-induced persisting amnestic disorder Current visit: Yes Status: Acute Risks, benefits, side effects, alternatives discussed w/pt: Yes Patient agreeable to treatment: Yes (3) 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 Referrals: [facility] [Other] - 05/20/17 10:00 am (The above appointment is with [facility] for outpatient mental health counseling services and testing as needed.) [facility] [place] [Outside] - 05/19/17 1:30 pm (The above appointment is with Dr. Ricks for primary healthcare and medication management services.) Psychiatry Exam - Constitutional Vitals: Temp Pulse Resp BP Pulse Ox 98.1 F 63 16 133/92 95 05/14/17 09:00 05/14/17 09:00 05/14/17 09:00 05/14/17 09:00 05/10/17 10:20 General appearance: age & developmentally appropriate - Musculoskeletal Gait: normal - Psychiatric Patient Orientation: Yes Person, Yes Time, Yes Place, Yes Circumstance Level of alertness: Alert Behavior: calm, cooperative Psychomotor activity: Normal Eye Contact: Maintains Eye Contact Mood Description: Other Affect description: constricted Speech Volume: Normal Speech pattern: normal rate Language & Vocabulary: consistent with education Thought Process: Logical, Goal Oriented Thought Content: Yes Intact Attention Span Ability: Capable of Focused Attention Memory Description: Remote Impaired Patient Reliability: Reliable Historian Intelligence Estimate: Average Judgment: Limited Insight: Partial
[2017-05-14] MEDS: traZODone 50 MG TABLET PO SCH (20:33)
[2017-05-14] MEDS: hydrOXYzine pamoate 25 MG CAPSULE PO PRN (20:55)
[2017-05-15] MEDS: Nicotine 21 MG PATCH.TD24 TD SCH (09:13)
[2017-05-15] MEDS: Folic Acid 1 MG TABLET PO SCH (09:14)
[2017-05-15] MEDS: Vitamin B Complex/Vit C/Vit E 1 EACH TABLET PO SCH (09:14)
[2017-05-15] MEDS: Thiamine (B-1) 100 MG TABLET PO SCH (09:14)
[2017-05-15] MEDS: Multivit/Ca/Min/Fe/FA 1 TAB TABLET PO SCH (09:14)
--- NOTE | 2017-05-15 12:00 | Psychiatry Progress Note ---
Date of Encounter: 05/15/17 Time of Encounter: 11:30 Subjective Interval history: Patient seen and evaluated by a multidisciplinary treatment team. There were no reported behavioral issues or incident overnight. Patient continue to show improvement with regimen. He is logical and goal directed and is able to engage in comprehensive goal directed conversation. He is compliant with his medications and denied any noted side effects. He denied problems with sleep and appetite. Patient with to be put on vivitriol shot. On review of symptoms, he denied any symptoms of depression/anxiety/psychosis including AH/VH/SI/HI. Patient is doing well and close to baseline. He should be ready for d/c after his vivitriol shot pending hapatic panel. Review of Systems Constitutional: Denies: fever, chills, weakness, weight change Eyes: Denies: eye pain, vision change Ears, Nose, Throat: Denies: ear pain, throat pain, dental pain, hearing loss, congestion Cardiovascular: Denies: chest pain, palpitations, dyspnea on exertion Respiratory: Denies: cough, dyspnea, wheezes Gastrointestinal: Denies: abdominal pain, nausea, vomiting, diarrhea, constipation Musculoskeletal: Denies: joint swelling, joint pain Neurological: Denies: headache, weakness, numbness, memory loss Psychiatric: Reports: memory loss Results - Vital Signs Vital Signs: Temp Pulse Resp BP Pulse Ox 98 F 73 16 128/99 95 05/15/17 09:00 05/15/17 09:00 05/15/17 09:00 05/15/17 09:00 05/10/17 10:20 Assessment and Plan (1) Mood and affect disturbance Current visit: Yes Status: Acute Plan: Continue hospitalization, Close observation, Suicide Precautions per unit protocol, Encourage participation in unit milieu, Group Therapy, Monitor sleep, Monitor appetite (2) Alcohol dependence with alcohol-induced persisting amnestic disorder Current visit: Yes Status: Acute Plan: Continue hospitalization, Close observation, Suicide Precautions per unit protocol, Encourage participation in unit milieu, Group Therapy, Monitor sleep, Monitor appetite Risks, benefits, side effects, alternatives discussed w/pt: Yes Patient agreeable to treatment: Yes (3) 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 Current visit: Yes Status: Suspected Plan: Continue hospitalization, Close observation, Suicide Precautions per unit protocol, Encourage participation in unit milieu, Group Therapy, Monitor sleep, Monitor appetite Risks, benefits, side effects, alternatives discussed w/pt: Yes Patient agreeable to treatment: Yes (4) Psychotic disorder with delusions due to known physiological condition Current visit: Yes Status: Acute Plan: Continue hospitalization, Close observation, Suicide Precautions per unit protocol, Encourage participation in unit milieu, Group Therapy, Monitor sleep, Monitor appetite Risks, benefits, side effects, alternatives discussed w/pt: Yes Patient agreeable to treatment: Yes Consult Discharge Plan - Plan Additional Instructions: Patient will resume regular AA attendance on discharge. Referrals: [facility] [Other] - 05/20/17 10:00 am (The above appointment is with [facility] for outpatient mental health counseling services and testing as needed.) [facility] [place] [Outside] - 05/19/17 1:30 pm (The above appointment is with Dr. Ricks for primary healthcare and medication management services.) Psychiatry Exam - Constitutional Vitals: Temp Pulse Resp BP Pulse Ox 98 F 73 16 128/99 95 05/15/17 09:00 05/15/17 09:00 05/15/17 09:00 05/15/17 09:00 05/10/17 10:20 General appearance: age & developmentally appropriate - Musculoskeletal Gait: normal Strength & Tone: normal for patient - Psychiatric Patient Orientation: Yes Person, Yes Time, Yes Circumstance Level of alertness: Alert Behavior: calm, cooperative Psychomotor activity: Normal Eye Contact: Maintains Eye Contact Mood Description: Euthymic/stable Affect description: congruent with mood, full range Speech Volume: Normal Speech pattern: normal rate, normal rhythm, normal tone, fluent, spontaneous Language & Vocabulary: consistent with education Thought Process: Linear, Goal Oriented Thought Content: No Suicidal ideation, No Homicidal ideation, No Overt delusions Perceptual Disturbances: No Auditory hallucinations, No Visual hallucinations Attention Span Ability: Capable of Focused Attention Memory Description: Grossly Intact Patient Reliability: Reliable Historian Fund of knowledge: Yes abstraction ability, Yes aware of current events Intelligence Estimate: Average Judgment: Fair Insight: Full
[2017-05-15 13:04] LABS: Albumin 3.9 g/dL (3.5-5.7); Albumin/Globulin Ratio 1.4 (1.1-2.2); Bilirubin,Direct 0.2 mg/dL (0.0-0.2); Bilirubin,Total 0.2 mg/dL (0.3-1.0); Globulin 2.7 g/dL (2.4-3.5); Total Protein 6.6 g/dL (6.4-8.9)
[2017-05-15] MEDS: NALTREXONE HCL 50 MG TABLET PO SCH (17:24)
[2017-05-15] MEDS: traZODone 50 MG TABLET PO SCH (21:11)
[2017-05-15] MEDS: Topiramate 25 MG TABLET PO SCH (21:12)
[2017-05-16] MEDS: Thiamine (B-1) 100 MG TABLET PO SCH (08:03)
[2017-05-16] MEDS: Multivit/Ca/Min/Fe/FA 1 TAB TABLET PO SCH (08:03)
[2017-05-16] MEDS: Vitamin B Complex/Vit C/Vit E 1 EACH TABLET PO SCH (08:03)
[2017-05-16] MEDS: Folic Acid 1 MG TABLET PO SCH (08:03)
[2017-05-16] MEDS: Topiramate 25 MG TABLET PO SCH ×2 (08:03→20:57)
[2017-05-16] MEDS: NALTREXONE HCL 50 MG TABLET PO SCH (08:04)
[2017-05-16] MEDS: Nicotine 21 MG PATCH.TD24 TD SCH (08:04)
--- NOTE | 2017-05-16 14:39 | Psychiatry Progress Note ---
Date of Encounter: 05/16/17 Time of Encounter: 14:10 Subjective Interval history: Patient seen today , chart reviewed, case d/w treatment team. States my family thinks i have hallucination. Doctors told me that i have delusions , they gave me seroquel and topamax which i took last night , and taken one dose of naltrexone. He denies any psychiatric treatment in past. has been to 4 rehabs in past for alcohol. 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 he denies any acute medical problems. states i loose track of what is real, and where i am . has been lost before. 3/3 in 5 minutes , he at present is sleeping better now and denies psychosis. denies suicidal/homicidal thoughts. on low dose of seroquel and topamax and denies side effects. will get neuropsych testing upon discharge. 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 Current visit: Yes Status: Acute Plan: Continue hospitalization, Close observation, Suicide Precautions per unit protocol, Encourage participation in unit milieu, Group Therapy, Monitor appetite, Family/Supportive other meeting Risks, benefits, side effects, alternatives discussed w/pt: Yes Patient agreeable to treatment: Yes (2) Alcohol dependence with alcohol-induced persisting amnestic disorder Current visit: Yes Status: Acute Plan: Continue hospitalization, Close observation, Suicide Precautions per unit protocol, Encourage participation in unit milieu, Group Therapy, Monitor sleep, Monitor appetite, Family/Supportive other meeting Risks, benefits, side effects, alternatives discussed w/pt: Yes Patient agreeable to treatment: Yes Consult Discharge Plan - Plan Additional Instructions: Patient will resume regular AA attendance on discharge. Referrals: [facility] [Other] - 05/20/17 10:00 am (The above appointment is with [facility] for outpatient mental health counseling services and testing as needed.) [facility] [place] [Outside] - 05/19/17 1:30 pm (The above appointment is with Dr. Ricks for primary healthcare and medication management services.) Psychiatry Exam - Constitutional Vitals: Temp Pulse Resp BP Pulse Ox 98 F 96 16 117/87 95 05/16/17 09:00 05/16/17 09:00 05/16/17 09:00 05/16/17 09:00 05/10/17 10:20 General appearance: age & developmentally appropriate, average - Musculoskeletal Gait: normal Station: stooped Strength & Tone: normal for patient - Psychiatric Patient Orientation: Yes Person, Yes Time, Yes Place, Yes Circumstance Level of alertness: Alert Behavior: calm, cooperative Psychomotor activity: Slowed Eye Contact: Maintains Eye Contact Mood Description: Euthymic/stable Affect description: constricted Speech Volume: Soft/Quiet Speech pattern: normal rate, normal rhythm, normal tone, coherent Language & Vocabulary: consistent with education Thought Process: Intact Thought Content: Yes Intact Attention Span Ability: Capable of Focused Attention Memory Description: Grossly Intact Patient Reliability: Reliable Historian Fund of knowledge: Yes average Intelligence Estimate: Average Judgment: Limited Insight: Minimal
[2017-05-16] MEDS: traZODone 50 MG TABLET PO SCH (21:04)
[2017-05-17] MEDS: NALTREXONE HCL 50 MG TABLET PO SCH (08:01)
[2017-05-17] MEDS: Nicotine 21 MG PATCH.TD24 TD SCH (08:01)
[2017-05-17] MEDS: Topiramate 25 MG TABLET PO SCH (08:01)
[2017-05-17] MEDS: Folic Acid 1 MG TABLET PO SCH (08:01)
[2017-05-17] MEDS: Vitamin B Complex/Vit C/Vit E 1 EACH TABLET PO SCH (08:01)
[2017-05-17] MEDS: Thiamine (B-1) 100 MG TABLET PO SCH (08:01)
[2017-05-17] MEDS: Multivit/Ca/Min/Fe/FA 1 TAB TABLET PO SCH (08:01)
[2017-05-17 08:19] VITALS: BP 131/83
--- NOTE | 2017-05-17 11:52 | Discharge Summary ---
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 (3) Alcoholism Status: Chronic Comments: sober 24 days , will get Vivitrol injection tomorrow and counselling referal given Medications - Discharge Medications Prescriptions: Donepezil [Aricept] 10 mg PO HS #14 tablet Naltrexone HCl 50 mg PO DAILY #7 tablet Quetiapine Fumarate [Seroquel] 50 mg PO HS #7 tablet Topiramate [Topamax] 50 mg PO BID #14 tablet Multivit-Min/FA/Lycopen/Lutein [A Thru Z Select Multivit Tab] 1 tab PO DAILY # 30 tablet 05/09/17 [Rx] Donepezil [Aricept] 10 mg PO HS #14 tablet 05/17/17 [Rx] Naltrexone HCl 50 mg PO DAILY #7 tablet 05/17/17 [Rx] Quetiapine Fumarate [Seroquel] 50 mg PO HS #7 tablet 05/17/17 [Rx] Topiramate [Topamax] 50 mg PO BID #14 tablet 05/17/17 [Rx] 3 Allergy/AdvReac Type Severity Reaction Status Date / Time lorazepam [From Ativan] Allergy See Verified 11/27/14 00:59 Comments Results Procedures and tests throughout hospitalization: Completed Lab Orders Category Date Time Status Hepatic Panel Stat Lab 05/15/17 11:44 Completed Provider Date of admission: 05/10/17 12:42 Primary care physician: PCP NONE Psychiatry Exam - Constitutional Vitals: Temp Pulse Resp BP Pulse Ox 98 F 83 16 131/83 95 05/17/17 08:18 05/17/17 08:18 05/17/17 08:18 05/17/17 08:18 05/10/17 10:20 General appearance: age & developmentally appropriate - Musculoskeletal Gait: normal Station: other Strength & Tone: normal for patient - Psychiatric Patient Orientation: Yes Person, Yes Time, Yes Place, Yes Circumstance Level of alertness: Alert Behavior: calm, cooperative Psychomotor activity: Normal Eye Contact: Maintains Eye Contact Mood Description: Euthymic/stable Affect description: constricted Speech Volume: Normal Speech pattern: normal rate, normal rhythm, normal tone, coherent Language & Vocabulary: consistent with education Thought Process: Logical Thought Content: Yes Intact Attention Span Ability: Capable of Focused Attention Memory Description: Immediate Intact, Remote Intact Patient Reliability: Reliable Historian Fund of knowledge: Yes average Intelligence Estimate: Average Judgment: Good Insight: Full Hospital Course Hospital course: Mr. Pulliam is a 52 year old male admitted from ED for delusions and confusion. Patient has history of alcoholism and abusing in increasing amounts since laid off in 2009 and drinking daily , he has been to 4 rehabs in past longest soberity was 3 years in from 2013 till 04/2016 , relapsed and drinking daily, has noticed memory problems, will get lost and describes his delusions as stories and fantasy , he denies a/v hallucinations or paranoia. he was started on Aricept by Dr Sanz and seroquel and topamax , which he has tolerated well, he did not take trazodone as seroquel helpinh him sleep also. denies side effects and has agreed to VIVTROL injection. Family meeting was done and it was productive. Patient still has some cognitive impairment and will get neuro psych testing as out patient. will discharde today, patient not in danger to self/others. Time spent discussing smoking cessation with patient: 3 to 10 minutes Does patient wish to continue nicotine replacement upon disc: No (patient does not smoke cigrattes but has done vapor , will consider stoppin) - Time Spent with Patient Total time spent providing and/or coordinating discharge services: Less than 30 minutes Assessment and Plan - Patient/Caregiver Discharge Instructions Activity: resume usual activities as tolerated Diet: regular diet Additional Instructions: Patient will resume regular AA attendance on discharge. - Follow up Plan Follow up with: [facility] [Other] - 05/20/17 10:00 am (The above appointment is with [facility] for outpatient mental health counseling services and testing as needed.) [facility] [place] [Outside] - 05/18/17 1:00 pm (The above appointment is with Hemanth Meyers for Vivitrol assessment and treatment as indicated. This appointment may last between 1 1/2 - 2 hours. You will also see Dr. Ricks for primary healthcare and medication management services in the same office on 05/19/2017 at 1:30pm.) Disposition: Home, Self-Care Quality - Multiple Antipsychotics Patient discharged on 2 or more antipsychotic medications: No Procedures - Procedures Procedures: Medication Management, Crisis Stabilization, Supportive Therapy, Group Therapy, Psychoeducational Therapy
== END 2017-05-17 13:05 | disposition home or self-care (01) | DRG 775 ==
LOC: EMEROO 22:45 → 1ANU 05-10 12:42 → SUATTDRO 05-10 12:42 → 1ANU 05-10 13:04
PROVIDERS: ADMIT Psychiatry & Neurology Psychiatry; ATTEND Psychiatry & Neurology Psychiatry

== ENCOUNTER 2017-09-29 02:35 | Inpatient (IN) ==
[2017-09-29] MEDS ORDERED: diazePAM 5 MG TABLET PO ONE (02:50)
[2017-09-29] MEDS ORDERED: Thiamine (B-1) 100 MG, Folic Acid 1 MG, MVI, adult with vitamin K 10 ML in 0.9 % Sodi... IVPB ONE (03:00)
--- NOTE | 2017-09-29 03:04 | Emergency Department Note ---
Disposition Clinical Impression: Altered mental status Qualifiers: Altered mental status type: unspecified Qualified Code(s): R41.82 - Altered mental status, unspecified Alcohol withdrawal Qualifiers: Complication of substance-induced condition: with unspecified complication Qualified Code(s): F10.239 - Alcohol dependence with withdrawal, unspecified Disposition: Admitted As Inpatient Condition: Fair Referrals: NONE,PCP [Primary Care Provider] - Forms: ED Satisfaction Letter Time of Disposition: 04:59 General Adult HPI - General Chief complaint: ED Altered Mental Status Stated complaint: confusion Time Seen by Provider: 09/29/17 02:48 Source: patient, EMS Mode of arrival: EMS Limitations: no limitations Nursing Notes Reviewed: Yes Vital Signs Reviewed: Yes - History of Present Illness HPI Narrative: Patient is a 52-year-old male with past medical history of alcohol abuse, hypertension. He presents today due to "confusion" concern for alcohol withdrawal. EMS states that the patient was found at a gas station, he had been walking for quite some time and states that he cannot remember why he was walking. He does state that he usually drinks a fifth of liquor a day, has not had alcohol in a few days and is starting to have shaking. He states that he has also had a fall within the past 1-2 days. Denies hitting his head. He does admit that he was walking around downtown and was unsure why, has a brief time period where he does not remember anything that happened. Denies using any other drugs, denies any suicidal or homicidal ideation, denies any visual or auditory hallucinations. He also states that he has a history of allergy to Ativan, says that it makes him very anxious and hyper. He has had Valium in the past and says that it works well for his alcohol withdrawal. Denies any other chest pain, shortness breath, nausea, vomiting, fevers, diarrhea, abdominal pain. Pain Scale: 0 - Related Data Home Medications Medication Instructions Recorded Confirmed No Known Home Drugs 04/14/17 04/14/17 Previous Rx's Medication Instructions Recorded Multivit-Min/FA/Lycopen/Lutein [A 1 tab PO DAILY #30 tablet 05/09/17 Thru Z Select Multivit Tab] Donepezil [Aricept] 10 mg PO HS #14 tablet 05/17/17 Naltrexone HCl 50 mg PO DAILY #7 tablet 05/17/17 Quetiapine Fumarate [Seroquel] 50 mg PO HS #7 tablet 05/17/17 Topiramate [Topamax] 50 mg PO BID #14 tablet 05/17/17 Allergies Allergy/AdvReac Type Severity Reaction Status Date / Time lorazepam [From Ativan] Allergy See Verified 11/27/14 00:59 Comments All systems ED: reviewed and negative except as stated. Constitutional: Denies: fever Cardiovascular: Denies: chest pain Respiratory: Denies: cough, dyspnea, wheezes Gastrointestinal: Denies: abdominal pain, nausea, vomiting, diarrhea Genitourinary: Denies: urgency, dysuria Neurological: Reports: other (Shaking, withdrawal). Denies: headache, weakness , numbness, paresthesias Past Medical History - Past Medical History Attestation: Yes The following information was validated with the patient. Source: patient Medical history: Reports: hypertension Surgical history: Reports: no surgical history, other Psychiatric history: Reports: no psych history, previous psychiatric hospitalization - Social History Smoking Status: Never smoker Smokeless Tobacco Status: No Alcohol use: Reports: occasionally Drug use: Reports: none Physical Exam - General Limitations: no limitations General appearance: alert, in no apparent distress - Head Head exam: atraumatic, normocephalic, normal inspection - Eye Eye exam: Present: normal appearance, PERRL, EOMI - ENT ENT exam: normal exam, normal oropharynx, mucous membranes moist - Neck Neck exam: Present: normal inspection, full ROM, trachea midline - Chest Chest inspection: Present: normal inspection, symmetric chest wall rise - Respiratory Respiratory exam: Present: normal lung sounds bilaterally - Cardiovascular Cardiovascular exam: Present: normal rhythm, tachycardia, normal heart sounds - Abdominal Exam Abdominal exam: Present: soft, Non-Tender. Absent: tenderness, distention, guarding, rebound, rigidity - Extremities Exam Extremities exam: Present: normal inspection, full ROM. Absent: tenderness, pedal edema - Neurological Exam Neurological exam: Present: alert, oriented X3, CN II-XII intact. Absent: motor sensory deficit - Psychiatric Psychiatric exam: Present: normal mood, flat affect - Skin Skin exam: Present: warm, dry, intact, normal color Course Course Narrative: Patient was tachycardic on presentation, mildly hypertensive. Otherwise, the rest of vitals within normal limits. Physical exam was fairly benign. No focal neurologic deficits; mild shaking, mild tachycardia, abdomen soft and nontender. Valium and banana bag ordered. CT of the head and basic labs ordered, medical clearance labs ordered. Patient will require admission for alcohol withdrawal at this time. 04:[address] the head was negative. We will admit for alcohol withdrawal. Head CT 09/29/17 02:50 IMPRESSION: No acute intracranial abnormality. D/ / Santana Pinedo MD / Santana Pinedo MD Interpreting Provider: Santana Pinedo MD Vital Signs Temperature 98.1 F 09/29/17 02:40 Pulse Rate 107 09/29/17 02:40 Respiratory Rate 16 09/29/17 02:40 Blood Pressure 130/92 09/29/17 02:40 O2 Sat by Pulse Oximetry 100 09/29/17 02:40 Temperature 98.1 F 09/29/17 02:40 Pulse Rate 107 09/29/17 02:40 Respiratory Rate 16 09/29/17 02:40 Blood Pressure 130/92 09/29/17 02:40 O2 Sat by Pulse Oximetry 100 09/29/17 02:40 Oxygen Delivery Oxygen Delivery Room Air Medical Decision Making - [facility] Narrative Medical decision making narrative: Patient was tachycardic on presentation, mildly hypertensive. Otherwise, the rest of vitals within normal limits. Physical exam was fairly benign. No focal neurologic deficits; mild shaking, mild tachycardia, abdomen soft and nontender. Valium and banana bag ordered. CT of the head and basic labs ordered, medical clearance labs ordered. Patient will require admission for alcohol withdrawal at this time. 04:58 no [address] lab abnormality. CT the head was negative. We will admit for alcohol withdrawal. - Medical Records Medical records reviewed: Yes I reviewed the patient's medical records. - Lab Data Lab results reviewed: Yes I reviewed the patient's lab results. Result diagrams: 09/29/17 03:19 09/29/17 03:19 Lab Results 09/29/17 09/29/17 09/29/17 Range/Units 03:19 03:19 03:50 WBC 8.0 (4.3-11.1) K/mcL RBC 4.54 (4.19-5.50) M/mcL Hgb 14.4 (12.9-16.9) g/dL Hct 41.9 (37.5-50.1) % MCV 92.3 (83.0-100.0) fL MCH 31.7 (28.0-33.3) pg MCHC 34.4 (31.6-35.5) g/dL RDW 15.5 H (11.5-14.5) % Plt Count 133 L (140-400) K/mcL MPV 10.0 (9.4-12.4) fL Immature Gran % 0.6 (0-4) % Seg Neutrophils % 80.3 % Lymphocytes % 13.8 % Monocytes % 4.0 % Eosinophils % 0.9 % Basophils % 0.4 % Neutrophils # 6.5 (1.6-8.9) K/mcL Lymphocytes # 1.1 (0.6-4.6) K/mcL Monocytes # 0.3 (0.0-1.3) K/mcL Eosinophils # 0.1 (0.0-0.6) K/mcL Basophils # 0.0 (0.0-0.2) K/mcL Sodium 135 L (136-145) mEq/L Potassium 3.2 L (3.5-5.1) mEq/L Chloride 96 L (98-107) mEq/L Carbon Dioxide 25 (23-29) mEq/L BUN 19 (6-20) mg/dL Creatinine 0.74 (0.70-1.30) mg/dL Est GFR ( Amer) > 60 (> 60) Est GFR (Non-Af Amer) > 60 (> 60) BUN/Creatinine Ratio 26 (6-26) Glucose 97 (70-105) mg/dL Calculated Osmolality 282 (280-300) Calcium 10.0 (8.6-10.3) mg/dL Urine Color Dark Yellow (Yellow) Urine Clarity Cloudy A (Clear) Urine pH 6.0 (5.0-8.0) pH Units Ur Specific [place] 1.027 H (1.010-1.025) Urine Protein 100 H (Neg-Trace) mg/dL Urine Glucose (UA) Normal (Normal) mg/dL Urine Ketones Trace H (Negative) mg/dL Urine Blood Negative (Negative) Urine Nitrite Negative (Negative) Urine Bilirubin Small H (Negative) Urine Urobilinogen Normal (Normal) mg/dL Ur Leukocyte Esterase Small H (Negative) Urine Microscopic RBC 5-15 H (0-3) per hpf Urine Microscopic WBC 5-15 H (0-3) per hpf Ur Squamous Epith Cells Few (None-Few) per lpf Urine Bacteria Moderate H (None-Few) per hpf Urine Mucus Many H (Few) Salicylates < 2.5 L (15.0-30.0) mg/dL Urine Opiates Screen (Dmfdly=888) ng/mL Acetaminophen < 10 L (10-20) mcg/mL Ur Barbiturates Screen (Dnxvkg=238) ng/mL Ur Phencyclidine Scrn (Cutoff=25) ng/mL Ur Amphetamines Screen (Zljxic=2680) ng/mL U Benzodiazepines Scrn (Ppadtn=640) ng/mL Urine Cocaine Screen (Cutoff= 300) ng/mL U Marijuana (THC) Screen (Cutoff = 50) ng/mL Ur Drug Screen Interp Ethyl Alcohol < 10 (Less than 10) mg/dL 09/29/17 Range/Units 03:50 WBC (4.3-11.1) K/mcL RBC (4.19-5.50) M/mcL Hgb (12.9-16.9) g/dL Hct (37.5-50.1) % MCV (83.0-100.0) fL MCH (28.0-33.3) pg MCHC (31.6-35.5) g/dL RDW (11.5-14.5) % Plt Count (140-400) K/mcL MPV (9.4-12.4) fL Immature Gran % (0-4) % Seg Neutrophils % % Lymphocytes % % Monocytes % % Eosinophils % % Basophils % % Neutrophils # (1.6-8.9) K/mcL Lymphocytes # (0.6-4.6) K/mcL Monocytes # (0.0-1.3) K/mcL Eosinophils # (0.0-0.6) K/mcL Basophils # (0.0-0.2) K/mcL Sodium (136-145) mEq/L Potassium (3.5-5.1) mEq/L Chloride (98-107) mEq/L Carbon Dioxide (23-29) mEq/L BUN (6-20) mg/dL Creatinine (0.70-1.30) mg/dL Est GFR ( Amer) (> 60) Est GFR (Non-Af Amer) (> 60) BUN/Creatinine Ratio (6-26) Glucose (70-105) mg/dL Calculated Osmolality (280-300) Calcium (8.6-10.3) mg/dL Urine Color (Yellow) Urine Clarity (Clear) Urine pH (5.0-8.0) pH Units Ur Specific [place] (1.010-1.025) Urine Protein (Neg-Trace) mg/dL Urine Glucose (UA) (Normal) mg/dL Urine Ketones (Negative) mg/dL Urine Blood (Negative) Urine Nitrite (Negative) Urine Bilirubin (Negative) Urine Urobilinogen (Normal) mg/dL Ur Leukocyte Esterase (Negative) Urine Microscopic RBC (0-3) per hpf Urine Microscopic WBC (0-3) per hpf Ur Squamous Epith Cells (None-Few) per lpf Urine Bacteria (None-Few) per hpf Urine Mucus (Few) Salicylates (15.0-30.0) mg/dL Urine Opiates Screen Negative (Rficsx=719) ng/mL Acetaminophen (10-20) mcg/mL Ur Barbiturates Screen Negative (Wvpgck=879) ng/mL Ur Phencyclidine Scrn Negative (Cutoff=25) ng/mL Ur Amphetamines Screen Negative (Uasoai=5469) ng/mL U Benzodiazepines Scrn Negative (Dezfns=411) ng/mL Urine Cocaine Screen Negative (Cutoff= 300) ng/mL U Marijuana (THC) Screen Negative (Cutoff = 50) ng/mL Ur Drug Screen Interp See Below Ethyl Alcohol (Less than 10) mg/dL - Radiology Data Radiology results reviewed: Yes I reviewed the patient's radiology results. Head CT 09/29/17 02:50 IMPRESSION: No acute intracranial abnormality. D/ / Santana Pinedo MD / Santana Pinedo MD Interpreting Provider: Santana Pinedo MD S.B.A.R. - S.B.A.R. Situation: Demographics, MOA Background: Presenting Complaint, Relevant PMH, Meds, & Allergies Assessment: Vital Signs, Course and respsone to treatment, Exam Concerns, Patient/Family Expectation, Pertinant Lab Results Recommendation: Barrier(s) to disposition, Recommendation based on pending studies, treatments, or consults S.B.A.R. Report Given to: Dr Rodriguez
--- NOTE | 2017-09-29 03:29 | Emergency Department Note ---
Disposition Clinical Impression: Altered mental status Disposition: Still a Patient Condition: Fair Referrals: NONE,PCP [Primary Care Provider] - Forms: ED Satisfaction Letter Altered Mental Status HPI - General Chief Complaint: ED Altered Mental Status Stated Complaint: confusion Time Seen by Provider: 09/29/17 02:48 Source: patient, EMS Mode of arrival: EMS Limitations: no limitations Nursing Notes Reviewed: Yes Vital Signs Reviewed: Yes - Related Data Home Medications Medication Instructions Recorded Confirmed No Known Home Drugs 04/14/17 04/14/17 Previous Rx's Medication Instructions Recorded Multivit-Min/FA/Lycopen/Lutein [A 1 tab PO DAILY #30 tablet 05/09/17 Thru Z Select Multivit Tab] Donepezil [Aricept] 10 mg PO HS #14 tablet 05/17/17 Naltrexone HCl 50 mg PO DAILY #7 tablet 05/17/17 Quetiapine Fumarate [Seroquel] 50 mg PO HS #7 tablet 05/17/17 Topiramate [Topamax] 50 mg PO BID #14 tablet 05/17/17 Allergies Allergy/AdvReac Type Severity Reaction Status Date / Time lorazepam [From Ativan] Allergy See Verified 11/27/14 00:59 Comments Past Medical History - Past Medical History Medical history: Reports: hypertension Surgical history: Reports: no surgical history, other Psychiatric history: Reports: no psych history, previous psychiatric hospitalization - Social History Smoking Status: Never smoker Smokeless Tobacco Status: No Alcohol use: Reports: occasionally Drug use: Reports: none Physical Exam - General Limitations: no limitations General appearance: alert, in no apparent distress Course Vital Signs Temperature 98.1 F 09/29/17 02:40 Pulse Rate 107 09/29/17 02:40 Respiratory Rate 16 09/29/17 02:40 Blood Pressure 130/92 09/29/17 02:40 O2 Sat by Pulse Oximetry 100 09/29/17 02:40 Temperature 98.1 F 09/29/17 02:40 Pulse Rate 107 09/29/17 02:40 Respiratory Rate 16 09/29/17 02:40 Blood Pressure 130/92 09/29/17 02:40 O2 Sat by Pulse Oximetry 100 09/29/17 02:40 Oxygen Delivery Oxygen Delivery Room Air TPA Checklist - LKW: 3-4.5 hrs Add. Warnings/Precautions Patient/family understanding: The patient/family members have been counseled and understood the risk, benefit , and alternatives of treatment. Attestation Statement - Attestation Attestation: I, Perico Vazquez, examined this patient and my medical decision-making was reviewed with the PUBLIC SAFETY DIRECTOR/PA/Advanced Practice Nurse/Resident Physician. I agree with the documented findings, disposition and treatment plan as described except to the extent set forth below. 52-year-old male brought to the emergency department by EMS for further evaluation of confusion. Patient states that he had been walking throughout the night, he arrived at a gas station, had fallen and EMS was called. Patient is unable to give a good history regarding his case and presentation. He has a history of EtOH abuse with EtOH withdrawal in the past. Patient has a tremor on the evaluation. We will obtain CT to rule out intercranial hemorrhage. Laboratory evaluation and imaging for altered mental status pending at this time. Patient will likely be admitted hospital for further care and evaluation.
[2017-09-29 03:34] LABS: Basophils % 0.4 %; Eosinophils # 0.1 K/mcL (0.0-0.6); Eosinophils % 0.9 %; Hematocrit 41.9 % (37.5-50.1); Hemoglobin 14.4 g/dL (12.9-16.9); Immature Granulocytes % 0.6 % (0-4); Lymphocytes # 1.1 K/mcL (0.6-4.6); Lymphocytes % 13.8 %; Mean Corpuscular HGB Conc 34.4 g/dL (31.6-35.5); Mean Corpuscular Hemoglobin 31.7 pg (28.0-33.3); Mean Corpuscular Volume 92.3 fL (83.0-100.0); Monocytes # 0.3 K/mcL (0.0-1.3); Neutrophils # 6.5 K/mcL (1.6-8.9); Platelet Count 133 K/mcL (140-400); Red Blood Count 4.54 M/mcL (4.19-5.50); Red Cell Distribution Width 15.5 % (11.5-14.5); Segmented Neutrophils % 80.3 %
[2017-09-29 03:58] LABS: Bilirubin,Urine Small (Negative); Blood,Urine Negative (Negative); Clarity,Urine Cloudy (Clear); Color,Urine Dark Yellow (Yellow); Glucose,Urine (UA) Normal (Normal); Ketones,Urine Trace mg/dL (Negative); Leukocyte Esterase,Urine Small (Negative); Nitrite,Urine Negative (Negative); Protein,Urine 100 mg/dL (Neg-Trace); Specific Gravity,Urine 1.027 (1.010-1.025); Urobilinogen,Urine Normal (Normal)
[2017-09-29 03:59] LABS: Acetaminophen < 10 mcg/mL (10-20); BUN/Creatinine Ratio 26 (6-26); Blood Urea Nitrogen 19 mg/dL (6-20); Carbon Dioxide 25 mEq/L (23-29); Chloride 96 mEq/L (98-107); Ethanol < 10 mg/dL (Less than 10); Glucose 97 mg/dL (70-105); Osmolality,Calculated 282 (280-300); Potassium 3.2 mEq/L (3.5-5.1); Salicylate < 2.5 mg/dL (15.0-30.0); Sodium 135 mEq/L (136-145); eGFR For Non-African Americans > 60 (> 60)
[2017-09-29 04:12] LABS: Bacteria,Urine Moderate per hpf (None-Few); Mucus,Urine Many (Few); Squamous Epithelial Cell,Urine Few per lpf (None-Few)
[2017-09-29 04:22] LABS: Amphetamine Screen,Urine Negative ng/mL (Cutoff=1000); Barbiturate Screen,Urine Negative ng/mL (Cutoff=200); Benzodiazepines Screen,Urine Negative ng/mL (Cutoff=200); Cannabinoid Screen,Urine Negative ng/mL (Cutoff = 50); Cocaine Screen,Urine Negative ng/mL (Cutoff= 300); Opiate Screen,Urine Negative ng/mL (Cutoff=300); Phencyclidine Screen,Urine Negative ng/mL (Cutoff=25)
[2017-09-29] MEDS ORDERED: diazePAM 10 MG/2 ML SYRINGE IVP PRN ×3 (05:46)
[2017-09-29] MEDS ORDERED: *HR* LORazepam 2 MG/ML VIAL IVP PRN ×3 (05:46)
[2017-09-29] MEDS ORDERED: *HR* Promethazine 25 MG/ML VIAL IVP PRN (05:46)
[2017-09-29] MEDS ORDERED: Acetaminophen 325 MG TABLET PO PRN (07:54)
[2017-09-29] MEDS ORDERED: Naloxone 0.4 MG/ML INJ IVP PRN (07:54)
[2017-09-29] MEDS ORDERED: Potassium Chloride Elixir 20 MEQ/15 ML UDC PO ONE (07:59)
[2017-09-29] MEDS ORDERED: Ringers Solution, Lactated 1,000 ML IVC SCH (08:00)
[2017-09-29] MEDS: *HR* Heparin 5,000 UNIT/ML VIAL SQ SCH ×2 (08:42→16:31)
--- NOTE | 2017-09-29 10:02 | Internal Med History&Physical ---
Date of Encounter: 09/29/17 Time of Encounter: 08:45 Internal Medicine - H&P: HPI Chief complaint: Inability to sleep, wandering around Admitted From: Emergency Dept Plans for Post Hospital Care: Transfer Psych Facility History of present illness: Mr. Pulliam is a 52 year old male with history of chronic alcoholism and behavioral disorder associated with alcohol dependence with previous psychiatric admissions, was brought in by EMS after having been found at a gas station. Patient reports that he was unable to sleep for the last 4-5 days, kept going on long walks. He kept wandering yesterday evening and ended up at a gas station, when he was questioned and picked up by the hot plate plywood press feeder. He is able to tell me his name, that he is in a hospital and today's date and year accurately. His last alcohol intake has been 6-7 days ago. He denies use of illicit drugs. Patient denies chest pain, shortness of breath,fever/chills, vomiting or diarrhea. He does have family, however lives alone and according to him, he is usually able to care for himself. He ambulates independently. He does not recall being admitted to inpatient psychiatry a few months ago, he reports completing the prescriptions provided to him with no further refills provided by his primary care provider. 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 Psychiatric history: no psych history, previous psychiatric hospitalization - Past Surgical History Surgical History: orthopedic, other (Bilateral knee arthroscopic surgeries), other Additional surgical history: right knee and leg surgeries - Social History Smoking Status: Never smoker Smokeless Tobacco Status: No Alcohol use: heavy Drug use: none Occupational status: unemployed Current living situation: Home - Independent Activity Level: Independent ambulation Recent Out of Country Travel Within the Last 8 Weeks: No Exposure or Possible Exposure to Illness During Travel: No - Family History Mother Adopted: No Family Member Ethnicity: Non- Living Status: Hx Family Cardiac Disorders: No Hx Family Respiratory Disorders: No Hx Family Cancer: No Hx Family GI Disorders: No Hx Family Endocrine Disorder: No Hx Family Neuromuscular Disorders: No Hx Family Neurologic Disorders: Yes (Alzheimers) Hx Family HEENT Disorders: No Hx Family Autoimmune Disorders: No Father Family Member Ethnicity: Non- Living Status: Still Living Hx Family Cardiac Disorders: No Hx Family Respiratory Disorders: Yes Hx Family Cancer: No Hx Family GI Disorders: No Hx Family Endocrine Disorder: Yes (DM 2) Hx Family Neuromuscular Disorders: No Hx Family Neurologic Disorders: No Hx Family HEENT Disorders: No Hx Family Autoimmune Disorders: No Grandfather Living Status: Hx Family Cancer: Yes (Colon Cancer) - Additional Family History Additional family history: Patient recalls no positive pertinent family history. Internal Medicine - H&P: Meds Multivit-Min/FA/Lycopen/Lutein [A Thru Z Select Multivit Tab] 1 tab PO DAILY # 30 tablet 05/09/17 [Rx] 3 Allergy/AdvReac Type Severity Reaction Status Date / Time lorazepam [From Ativan] Allergy See Verified 11/27/14 00:59 Comments All Systems PM: A 10-system review of systems was performed and is negative for pertinent findings except as documented above in the HPI. - Constitutional Constitutional: no chills, no fever(s), no night sweats - EENT Eyes: no change in vision, no discharge, no pain, no photophobia Ears: no ear discharge, no ear pain, no tinnitus Nose, mouth and throat: no dysphagia, no nasal discharge, no neck pain, no sore throat - Cardiovascular Cardiovascular ROS IM: no chest pain, no diaphoresis, no dyspnea, no lightheadedness, no palpitations, no syncope - Respiratory Respiratory: no cough, no dyspnea, no wheezing, no excessive phlegm production - Gastrointestinal Gastrointestinal: no abdominal pain, no diarrhea, no hematemesis, no hematochezia, no melena, no nausea, no vomiting - Musculoskeletal Musculoskeletal ROS IM: no numbness, no tingling - Integumentary Integumentary IM: no rash, no unusual bruising - Neurological Neurological ROS: behavioral changes, memory loss - Psychiatric Psychiatric: hallucinations - Hematologic/Lymphatic Hematologic/Lymphatic: no easy bruising - Constitutional Vitals: Temp Pulse Resp BP Pulse Ox 98.9 F 97 18 129/87 100 09/29/17 07:14 09/29/17 07:14 09/29/17 07:14 09/29/17 07:14 09/29/17 07:14 General appearance: Present: A&O X 3, answers questions appropriately - Respiratory Respiratory exam: Present: CTAB. Absent: accessory muscle use, rales, rhonchi, wheezes - Cardiovascular Cardiovascular exam: Present: RRR, +S1, +S2. Absent: diastolic murmur, gallop, rubs, systolic murmur - GI/Abdominal GI/Abdominal exam: Present: normal bowel sounds, soft, no peritoneal signs. Absent: distended, tenderness - Extremities Exam Extremities exam: Present: full ROM, warm, radial pulses palpable and symmetrical. Absent: calf tenderness, cyanotic, pedal edema - Neurological Exam Neurological exam: Present: CN II-XII intact, oriented X3, no focal deficits. Absent: pronater drift, facial droop, speech deficit - Skin Skin exam: Present: dry, intact Internal Med - H&P Results - Labs CBC & Chem 7: 09/29/17 03:19 09/29/17 08:32 - Assessment and plan (1) Hallucinations Current Visit: Yes Status: Acute Assessment and plan: Per nursing staff, patient was noted to have a conversation with invisible people. Continue one-on-one sitter and supportive care. He denies suicidal or homicidal ideation at this time. Does not have signs or symptoms of alcohol withdrawal at this time. Continue thiamine and folate Supplements. 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
[2017-09-29 10:13] LABS: Alanine Aminotransferase 19 Units/L (7-52); Albumin 4.4 g/dL (3.5-5.7); Albumin/Globulin Ratio 1.8 (1.1-2.2); Alkaline Phosphatase 64 Units/L (34-104); Aspartate Amino Transferase 22 Units/L (13-39); BUN/Creatinine Ratio 30 (6-26); Blood Urea Nitrogen 16 mg/dL (6-20); Calcium 9.6 mg/dL (8.6-10.3); Carbon Dioxide 24 mEq/L (23-29); Chloride 100 mEq/L (98-107); Globulin 2.4 g/dL (2.4-3.5); Glucose 119 mg/dL (70-105); Magnesium 1.4 mg/dL (1.6-2.6); Osmolality,Calculated 282 (280-300); Potassium 3.2 mEq/L (3.5-5.1); Sodium 135 mEq/L (136-145); Total Protein 6.8 g/dL (6.4-8.9); Troponin I < 0.03 ng/mL (< 0.04); eGFR For Non-African Americans > 60 (> 60)
--- NOTE | 2017-09-29 16:00 | Consult Note ---
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 History of Present Illness Patient: known to practice within the last 3 years Requesting Physician: Laura Chacko MD Reason for consult: psychosis History of present illness: Mr. Pulliam is a 52 year old male consulted today for psychosis and chronic alcoholism. During this admissions, was brought in by EMS after having been found at a gas station. Patient reports that he was unable to sleep for the last 4-5 days, kept going on long walks. He kept wandering yesterday evening and ended up at a gas station, when he was questioned and picked up by the supervisor powdered sugar. He is able to tell me his name, that he is in a hospital and today's date and year accurately. His last alcohol intake has been 6-7 days ago. He denies use of illicit drugs. HPI Patient seen at his bedside and is known to me , he was dischArged from in with medication and follow up appointment , states after discharge he went to [facility] and he had follow up appointment today , states he had no medicine and was not sleeping and went out for walk as could not sleep and went to gas station and started loosing himself regarding strengTHA/P reed and police was called and they bought him here. He was verbal , alert and cooperative , he stated i have been working at [employer] and not drinking the way he used to no drink in last 6 days and drinks 3 times a week, denied any depressive s/, no psychosis at present , no si/no hi , has short and longterm plans, He has support from his parents, coworkers and his brother. he was on naltrexone 50 mg, seroquel 50 mg and aricept 10 mg . A/P Alcohol dependence with amnestic disorder. anxiety disorder. Please start naltrexone 50 mg aricept 10 mg po pm seroquel 50 mg hs. f/u at [facility] for counselling out patient psychiatric appointment. Thank you for consult pt does not need in patient psych services at present. CC: Laura Chacko MD Past Med Surg Social Fam HX - Past Medical History Medical history: hypertension - Past Psychiatric History Psychiatric history: Reports: anxiety, previous psychiatric hospitalization Family psychiatric history: No Family History of Suicide: None - Past Surgical History Surgical History: orthopedic, other (Bilateral knee arthroscopic surgeries), other - Social History Smoking Status: Never smoker Smokeless Tobacco Status: No Alcohol use: heavy Drug use: none - Family History Mother Adopted: No Family Member Ethnicity: Non- Living Status: Hx Family Cardiac Disorders: No Hx Family Respiratory Disorders: No Hx Family Cancer: No Hx Family GI Disorders: No Hx Family Endocrine Disorder: No Hx Family Neuromuscular Disorders: No Hx Family Neurologic Disorders: Yes (Alzheimers) Hx Family HEENT Disorders: No Hx Family Autoimmune Disorders: No Father Family Member Ethnicity: Non- Living Status: Still Living Hx Family Cardiac Disorders: No Hx Family Respiratory Disorders: Yes Hx Family Cancer: No Hx Family GI Disorders: No Hx Family Endocrine Disorder: Yes (DM 2) Hx Family Neuromuscular Disorders: No Hx Family Neurologic Disorders: No Hx Family HEENT Disorders: No Hx Family Autoimmune Disorders: No Grandfather Living Status: Hx Family Cancer: Yes (Colon Cancer) Medications & Allergies Multivit-Min/FA/Lycopen/Lutein [A Thru Z Select Multivit Tab] 1 tab PO DAILY # 30 tablet 05/09/17 [Rx] 3 Allergy/AdvReac Type Severity Reaction Status Date / Time lorazepam [From Ativan] Allergy See Verified 11/27/14 00:59 Comments Review of Systems Psychiatric: Reports: anxiety, memory loss Psychiatry Exam - Constitutional Vitals: Temp Pulse Resp BP Pulse Ox 98.5 F 84 19 114/77 98 09/29/17 14:58 09/29/17 14:58 09/29/17 14:58 09/29/17 14:58 09/29/17 14:58 General appearance: age & developmentally appropriate - Musculoskeletal Station: other Strength & Tone: normal for patient - Psychiatric Patient Orientation: Yes Person, Yes Time, Yes Place Level of alertness: Alert Behavior: cooperative Eye Contact: Maintains Eye Contact Mood Description: Euthymic/stable, Anxious Affect description: congruent with mood Speech Volume: Normal Speech pattern: clear, coherent Language & Vocabulary: consistent with education Thought Process: Logical Thought Content: Yes Intact Attention Span Ability: Capable of Focused Attention Memory Description: Immediate Intact, Recent Impaired Patient Reliability: Reliable Historian Fund of knowledge: Yes average Intelligence Estimate: Average Judgment: Fair Insight: Partial Results - Labs Labs: Laboratory Last Values WBC 8.0 K/mcL (4.3-11.1) 09/29/17 03:19 RBC 4.54 M/mcL (4.19-5.50) 09/29/17 03:19 Hgb 14.4 g/dL (12.9-16.9) 09/29/17 03:19 Hct 41.9 % (37.5-50.1) 09/29/17 03:19 MCV 92.3 fL (83.0-100.0) 09/29/17 03:19 MCH 31.7 pg (28.0-33.3) 09/29/17 03:19 MCHC 34.4 g/dL (31.6-35.5) 09/29/17 03:19 RDW 15.5 % (11.5-14.5) H 09/29/17 03:19 Plt Count 133 K/mcL (140-400) L 09/29/17 03:19 MPV 10.0 fL (9.4-12.4) 09/29/17 03:19 Immature Gran % 0.6 % (0-4) 09/29/17 03:19 Seg Neutrophils % 80.3 % 09/29/17 03:19 Lymphocytes % 13.8 % 09/29/17 03:19 Monocytes % 4.0 % 09/29/17 03:19 Eosinophils % 0.9 % 09/29/17 03:19 Basophils % 0.4 % 09/29/17 03:19 Neutrophils # 6.5 K/mcL (1.6-8.9) 09/29/17 03:19 Lymphocytes # 1.1 K/mcL (0.6-4.6) 09/29/17 03:19 Monocytes # 0.3 K/mcL (0.0-1.3) 09/29/17 03:19 Eosinophils # 0.1 K/mcL (0.0-0.6) 09/29/17 03:19 Basophils # 0.0 K/mcL (0.0-0.2) 09/29/17 03:19 Sodium 135 mEq/L (136-145) L 09/29/17 08:32 Potassium 3.2 mEq/L (3.5-5.1) L 09/29/17 08:32 Chloride 100 mEq/L (98-107) 09/29/17 08:32 Carbon Dioxide 24 mEq/L (23-29) 09/29/17 08:32 BUN 16 mg/dL (6-20) 09/29/17 08:32 Creatinine 0.54 mg/dL (0.70-1.30) L 09/29/17 08:32 Est GFR ( Amer) > 60 (> 60) 09/29/17 08:32 Est GFR (Non-Af Amer) > 60 (> 60) 09/29/17 08:32 BUN/Creatinine Ratio 30 (6-26) H 09/29/17 08:32 Glucose 119 mg/dL (70-105) H 09/29/17 08:32 Calculated Osmolality 282 (280-300) 09/29/17 08:32 Calcium 9.6 mg/dL (8.6-10.3) 09/29/17 08:32 Magnesium 1.4 mg/dL (1.6-2.6) L 09/29/17 08:32 Total Bilirubin 1.0 mg/dL (0.3-1.0) 09/29/17 08:32 AST 22 Units/L (13-39) 09/29/17 08:32 ALT 19 Units/L (7-52) 09/29/17 08:32 Alkaline Phosphatase 64 Units/L (34-104) 09/29/17 08:32 Troponin I < 0.03 ng/mL (< 0.04) 09/29/17 13:25 Serum Total Protein 6.8 g/dL (6.4-8.9) 09/29/17 08:32 Albumin 4.4 g/dL (3.5-5.7) 09/29/17 08:32 Globulin 2.4 g/dL (2.4-3.5) 09/29/17 08:32 Albumin/Globulin Ratio 1.8 (1.1-2.2) 09/29/17 08:32 Urine Color Dark Yellow (Yellow) 09/29/17 03:50 Urine Clarity Cloudy (Clear) A 09/29/17 03:50 Urine pH 6.0 pH Units (5.0-8.0) 09/29/17 03:50 Ur Specific [place] 1.027 (1.010-1.025) H 09/29/17 03:50 Urine Protein 100 mg/dL (Neg-Trace) H 09/29/17 03:50 Urine Glucose (UA) Normal mg/dL (Normal) 09/29/17 03:50 Urine Ketones Trace mg/dL (Negative) H 09/29/17 03:50 Urine Blood Negative (Negative) 09/29/17 03:50 Urine Nitrite Negative (Negative) 09/29/17 03:50 Urine Bilirubin Small (Negative) H 09/29/17 03:50 Urine Urobilinogen Normal mg/dL (Normal) 09/29/17 03:50 Ur Leukocyte Esterase Small (Negative) H 09/29/17 03:50 Urine Microscopic RBC 5-15 per hpf (0-3) H 09/29/17 03:50 Urine Microscopic WBC 5-15 per hpf (0-3) H 09/29/17 03:50 Ur Squamous Epith Cells Few per lpf (None-Few) 09/29/17 03:50 Urine Bacteria Moderate per hpf (None-Few) H 09/29/17 03:50 Urine Mucus Many (Few) H 09/29/17 03:50 Salicylates < 2.5 mg/dL (15.0-30.0) L 09/29/17 03:19 Urine Opiates Screen Negative ng/mL (Nucoyk=627) 09/29/17 03:50 Acetaminophen < 10 mcg/mL (10-20) L 09/29/17 03:19 Ur Barbiturates Screen Negative ng/mL (Auanmv=144) 09/29/17 03:50 Ur Phencyclidine Scrn Negative ng/mL (Cutoff=25) 09/29/17 03:50 Ur Amphetamines Screen Negative ng/mL (Uepmhf=2803) 09/29/17 03:50 U Benzodiazepines Scrn Negative ng/mL (Xaqxen=614) 09/29/17 03:50 Urine Cocaine Screen Negative ng/mL (Cutoff= 300) 09/29/17 03:50 U Marijuana (THC) Screen Negative ng/mL (Cutoff = 50) 09/29/17 03:50 Ur Drug Screen Interp See Below 09/29/17 03:50 Ethyl Alcohol < 10 mg/dL (Less than 10) 09/29/17 03:19 Consult Discharge Plan - Plan Referrals: NONE,PCP [Primary Care Provider] -
[2017-09-30] MEDS: *HR* Heparin 5,000 UNIT/ML VIAL SQ SCH ×2 (02:00→09:05)
[2017-09-30 07:17] VITALS: BP 130/91
[2017-09-30] MEDS ORDERED: Thiamine (B-1) 100 MG TABLET PO SCH (09:00)
[2017-09-30] MEDS ORDERED: Vitamin B Complex/Vit C/Vit E 1 EACH TABLET PO SCH (09:00)
[2017-09-30] MEDS ORDERED: Folic Acid 1 MG TABLET PO SCH (09:00)
--- NOTE | 2017-09-30 13:46 | Discharge Summary ---
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 Pulliam is a 52 year old male with history of chronic alcohol dependence and associated amnestic and psychotic disorder, who was brought in by EMS after being found wandering and disoriented at a gas station. Patient was noted to be somewhat confused at admission but his mental status quickly returned to baseline and he was noted to be alert and oriented during this hospitalization. He was medically and hemodynamically stable, no metabolic or infectious etiology was identified. No evidence of alcohol withdrawal. Urine drug screen and serum alcohol level was negative. Psychiatric was consulted, patient's behavior was thought to be secondary to insomnia for multiple nights, he is recommended close outpatient follow-up but no inpatient psychiatric admission warranted. He had no suicidal or homicidal ideation. He recently had an inpatient psychiatric admission at which time he was started on Aricept, Seroquel and naltrexone, for which he received no refills. Patient was noted to have visual and auditory hallucinations, noted to be arguing with invisible person last night, prior to receiving Seroquel, after which he had a good night's rest. Case was discussed with psychiatry today, patient is deemed stable for discharge with the above prescriptions and outpatient follow-up with PCP or mental health counselor. Plan of care discussed with patient, his nurse and the social sciences chair. Discharge discussed with: patient, nurse, social work, sap treasury consultant - Time Spent with Patient Total time spent providing and/or coordinating discharge services: Greater than 30 minutes (45 min) - Discharge Medications Prescriptions: Donepezil [Aricept] 10 mg PO HS #20 tablet Naltrexone HCl 50 mg PO DAILY #14 tablet Quetiapine Fumarate [Seroquel] 50 mg PO HS #28 tablet Thiamine (B-1) [Vitamin B-1] 100 mg PO DAILY #30 tablet Home Medications: Multivit-Min/FA/Lycopen/Lutein [A Thru Z Select Multivit Tab] 1 tab PO DAILY # 30 tablet 03/19/18 [Rx] Donepezil [Aricept] 10 mg PO HS #20 tablet 09/30/17 [Rx] Naltrexone HCl 50 mg PO DAILY #14 tablet 09/30/17 [Rx] Quetiapine Fumarate [Seroquel] 50 mg PO HS #28 tablet 09/30/17 [Rx] Thiamine (B-1) [Vitamin B-1] 100 mg PO DAILY #30 tablet 09/30/17 [Rx] Allergies/Adverse Reactions: 3 Allergy/AdvReac Type Severity Reaction Status Date / Time lorazepam [From Ativan] AdvReac See Verified 09/30/17 09:36 Comments Date of admission: 09/29/17 13:33 Primary care physician: PCP NONE Discharging clinician: Laura Chacko Anticipated date of discharge: 09/30/17 - Constitutional Vitals: Temp Pulse Resp BP Pulse Ox 98.2 F 75 16 130/91 99 09/30/17 07:15 09/30/17 07:15 09/30/17 07:15 09/30/17 07:15 09/30/17 07:15 General appearance: Present: A&O X 3, answers questions appropriately - Cardiovascular Cardiovascular exam: Present: RRR, +S1, +S2. Absent: diastolic murmur, gallop, rubs, systolic murmur - Patient Status Disposition: Home, Self-Care Condition: Fair Functional capacity at discharge: independent ambulation Overall status at discharge: patient is progressing back to baseline - Discharge Instructions Follow Up With: NONE,PCP [Primary Care Provider] - Additional Instructions: F/up with PCP in 1-2 weeks F/up with Psychiatry in 2-3 weeks - Diet and Activity Activity: resume usual activities as tolerated Diet: advance to your usual diet, regular diet
== END 2017-09-30 15:50 | disposition home or self-care (01) | DRG 775 ==
LOC: EMEROO 02:35 → 3NENU 02:35 → SUATTDRO 05:06 → 3NENU 05:42 → UNDODISIN 22:17
PROVIDERS: ADMIT Internal Medicine; ATTEND Internal Medicine

== ENCOUNTER 2020-08-14 09:43 | Observation (INO) ==
[2020-08-14] MEDS ORDERED: 0.9 % Sodium Chloride 1,000 ML IVC ONE (09:52)
[2020-08-14] MEDS ORDERED: diazePAM 10 MG/2 ML SYRINGE IVP STA (09:53)
[2020-08-14] MEDS ORDERED: Thiamine (B-1) 100 MG in 0.9 % Sodium Chloride 50 ML IVPB ONE (10:04)
[2020-08-14] MEDS ORDERED: diazePAM 10 MG/2 ML SYRINGE IVP PRN ×5 (10:06)
[2020-08-14] MEDS ORDERED: Folic Acid 1 MG in 0.9 % Sodium Chloride 50 ML IVPB ONE (10:07)
[2020-08-14 10:29] LABS: Basophils % 0.3 %; Red Cell Distribution Width 14.6 % (11.5-14.5)
[2020-08-14 10:31] LABS: Eosinophils % 0.7 %; Immature Granulocytes % 0.7 % (0-4); Lymphocytes % 15.4 %; Monocytes % 6.4 %; Segmented Neutrophils % 76.5 %
[2020-08-14 10:38] LABS: Eosinophils # 0.1 K/mcL (0.0-0.6); Hematocrit 46.3 % (37.5-50.1); Hemoglobin 16.4 g/dL (12.9-16.9); Immature Platelets 5.1 % (1.1-6.1); Lymphocytes # 1.4 K/mcL (0.6-4.6); Mean Corpuscular HGB Conc 35.4 g/dL (31.6-35.5); Mean Corpuscular Hemoglobin 31.7 pg (28.0-33.3); Mean Corpuscular Volume 89.4 fL (83.0-100.0); Mean Platelet Volume 9.8 fL (9.4-12.4); Monocytes # 0.6 K/mcL (0.0-1.3); Neutrophils # 6.8 K/mcL (1.6-8.9); Platelet Count 130 K/mcL (140-400); Red Blood Count 5.18 M/mcL (4.19-5.50); White Blood Count 8.9 K/mcL (4.3-11.1)
[2020-08-14 10:47] LABS: Acetaminophen < 10 mcg/mL (10-20); Alanine Aminotransferase 22 Units/L (7-52); Albumin 4.9 g/dL (3.5-5.7); Albumin/Globulin Ratio 1.9 (1.1-2.2); Alkaline Phosphatase 81 Units/L (34-104); Aspartate Amino Transferase 28 Units/L (13-39); Bilirubin,Direct 0.3 mg/dL (0.0-0.2); Bilirubin,Indirect 1.2 mg/dL (0.0-1.0); Bilirubin,Total 1.5 mg/dL (0.3-1.0); Blood Urea Nitrogen 17 mg/dL (6-20); Calcium 9.8 mg/dL (8.6-10.3); Carbon Dioxide 24 mEq/L (23-29); Chloride 97 mEq/L (98-107); Chol/HDL Ratio 2.3 (0-4.9); Cholesterol 231 mg/dL (< 200); Ethanol < 10 mg/dL (Less than 10); Globulin 2.6 g/dL (2.4-3.5); Glucose 138 mg/dL (70-105); HDL Cholesterol 100 mg/dL (40-59); LDL Cholesterol,Calculated 117 mg/dL (< 100); Osmolality,Calculated 286 (280-300); Potassium 2.6 mEq/L (3.5-5.1); Salicylate < 2.5 mg/dL (15.0-30.0); Sodium 136 mEq/L (136-145); Total Protein 7.5 g/dL (6.4-8.9); Triglycerides 72 mg/dL (< 150)
[2020-08-14] MEDS ORDERED: Potassium Chloride 40 MEQ, Lidocaine 1% 2 ML in 0.9 % Sodium Chloride 500 ML IVPB ONE (10:59)
[2020-08-14] MEDS ORDERED: Potassium Effervescent 25 MEQ TABLET.EFF PO ONE (11:01)
[2020-08-14 11:32] LABS: BUN/Creatinine Ratio 18 (6-26); Creatine Kinase 357 Units/L (30-223); eGFR For African Americans > 60 (> 60); eGFR For Non-African Americans > 60 (> 60)
[2020-08-14 11:36] LABS: Amphetamine Screen,Urine Negative ng/mL (Cutoff=1000); Barbiturate Screen,Urine Negative ng/mL (Cutoff=200); Benzodiazepines Screen,Urine Negative ng/mL (Cutoff=300); Cannabinoid Screen,Urine Negative ng/mL (Cutoff = 50); Cocaine Screen,Urine Negative ng/mL (Cutoff= 300); Opiate Screen,Urine Negative ng/mL (Cutoff=300); Phencyclidine Screen,Urine Negative ng/mL (Cutoff=25)
[2020-08-14 11:46] LABS: Bilirubin,Urine Negative (Negative); Blood,Urine Negative (Negative); Clarity,Urine Clear (Clear); Color,Urine Light-Yellow (Yellow); Glucose,Urine (UA) Normal (Normal); Hyaline Casts,Urine Few per lpf (None Seen); Ketones,Urine Trace mg/dL (Negative); Leukocyte Esterase,Urine Negative (Negative); Mucus,Urine Few per lpf (None-Few); Nitrite,Urine Negative (Negative); Protein,Urine 30 mg/dL (Neg-Trace); RBC,Urine 0-3 per hpf (0-3); Specific Gravity,Urine 1.012 (1.010-1.025); Urobilinogen,Urine Normal (Normal); WBC,Urine 0-3 per hpf (0-3)
[2020-08-14] MEDS ORDERED: *HR* HYDROcodone/Acet 5/325 mg TABLET PO PRN (11:59)
[2020-08-14] MEDS ORDERED: Naloxone 0.4 MG/ML INJ IVP PRN (11:59)
[2020-08-14] MEDS ORDERED: Ondansetron 4 MG/2 ML VIAL IVP PRN (11:59)
[2020-08-14] MEDS ORDERED: *HR* Labetalol 20 MG/4 ML SYRINGE IVP PRN (12:08)
[2020-08-14 12:24] LABS: Troponin I < 0.03 ng/mL (< 0.04)
[2020-08-14] MEDS: *HR* Heparin 5,000 UNIT/ML VIAL SQ SCH (17:41)
[2020-08-14] MEDS: amLODIPine 5 MG TABLET PO SCH (18:12)
[2020-08-14] MEDS: Thiamine (B-1) 100 MG, Folic Acid 1 MG, MVI, adult with vitamin K 10 ML in 0.9 % Sodi... IVPB SCH (18:12)
[2020-08-14 18:57] LABS: Estimated Average Glucose 97 mg/dl
[2020-08-15 00:59] LABS: INR 1.1; Prothrombin Time 12.9 Seconds (9.4-12.1)
[2020-08-15 01:02] LABS: Activated Partial Thrombo Time 29.9 Seconds (26.0-36.0)
[2020-08-15 01:19] LABS: BUN/Creatinine Ratio 20 (6-26); Blood Urea Nitrogen 11 mg/dL (6-20); Calcium 8.8 mg/dL (8.6-10.3); Carbon Dioxide 22 mEq/L (23-29); Chloride 102 mEq/L (98-107); Glucose 84 mg/dL (70-105); Magnesium 1.6 mg/dL (1.6-2.6); Osmolality,Calculated 291 (280-300); Phosphorous 3.3 mg/dL (2.7-4.5); Potassium 3.3 mEq/L (3.5-5.1); Sodium 141 mEq/L (136-145); Troponin I < 0.03 ng/mL (< 0.04); eGFR For African Americans > 60 (> 60); eGFR For Non-African Americans > 60 (> 60)
[2020-08-15] MEDS: *HR* Heparin 5,000 UNIT/ML VIAL SQ SCH ×2 (06:01→16:30)
[2020-08-15] MEDS: amLODIPine 5 MG TABLET PO SCH (07:34)
[2020-08-15] MEDS ORDERED: Folic Acid 1 MG TABLET PO SCH (09:00)
[2020-08-15] MEDS: Thiamine (B-1) 100 MG, Folic Acid 1 MG, MVI, adult with vitamin K 10 ML in 0.9 % Sodi... IVPB SCH (17:37)
[2020-08-16 02:07] LABS: Basophils % 0.8 %; Eosinophils # 0.2 K/mcL (0.0-0.6); Eosinophils % 4.1 %; Hematocrit 39.7 % (37.5-50.1); Hemoglobin 12.9 g/dL (12.9-16.9); Immature Granulocytes % 0.4 % (0-4); Lymphocytes # 1.7 K/mcL (0.6-4.6); Lymphocytes % 32.6 %; Mean Corpuscular HGB Conc 32.5 g/dL (31.6-35.5); Mean Corpuscular Hemoglobin 30.6 pg (28.0-33.3); Mean Corpuscular Volume 94.1 fL (83.0-100.0); Mean Platelet Volume 9.9 fL (9.4-12.4); Monocytes # 0.5 K/mcL (0.0-1.3); Neutrophils # 2.8 K/mcL (1.6-8.9); Platelet Count 121 K/mcL (140-400); Red Blood Count 4.22 M/mcL (4.19-5.50); Red Cell Distribution Width 14.7 % (11.5-14.5); Segmented Neutrophils % 52.1 %; White Blood Count 5.3 K/mcL (4.3-11.1)
[2020-08-16 02:23] LABS: Alanine Aminotransferase 13 Units/L (7-52); Albumin 3.9 g/dL (3.5-5.7); Alkaline Phosphatase 62 Units/L (34-104); Aspartate Amino Transferase 15 Units/L (13-39); BUN/Creatinine Ratio 28 (6-26); Bilirubin,Total 0.6 mg/dL (0.3-1.0); Blood Urea Nitrogen 19 mg/dL (6-20); Calcium 9.1 mg/dL (8.6-10.3); Carbon Dioxide 30 mEq/L (23-29); Chloride 102 mEq/L (98-107); Glucose 78 mg/dL (70-105); Osmolality,Calculated 289 (280-300); Potassium 3.6 mEq/L (3.5-5.1); Sodium 139 mEq/L (136-145); Total Protein 5.9 g/dL (6.4-8.9); eGFR For African Americans > 60 (> 60); eGFR For Non-African Americans > 60 (> 60)
[2020-08-16] MEDS: *HR* Heparin 5,000 UNIT/ML VIAL SQ SCH ×2 (06:47→18:22)
[2020-08-16] MEDS: amLODIPine 5 MG TABLET PO SCH (09:02)
[2020-08-16] MEDS: Thiamine (B-1) 100 MG, Folic Acid 1 MG, MVI, adult with vitamin K 10 ML in 0.9 % Sodi... IVPB SCH (18:21)
[2020-08-17 01:41] LABS: Mean Platelet Volume 9.6 fL (9.4-12.4); Red Cell Distribution Width 14.8 % (11.5-14.5)
[2020-08-17 01:42] LABS: Hematocrit 40.7 % (37.5-50.1); Hemoglobin 13.3 g/dL (12.9-16.9); Immature Platelets 4.1 % (1.1-6.1); Mean Corpuscular HGB Conc 32.7 g/dL (31.6-35.5); Mean Corpuscular Volume 94.9 fL (83.0-100.0); Red Blood Count 4.29 M/mcL (4.19-5.50); White Blood Count 5.5 K/mcL (4.3-11.1)
[2020-08-17 01:59] LABS: BUN/Creatinine Ratio 30 (6-26); Blood Urea Nitrogen 21 mg/dL (6-20); Calcium 9.3 mg/dL (8.6-10.3); Carbon Dioxide 29 mEq/L (23-29); Chloride 101 mEq/L (98-107); Creatine Kinase 79 Units/L (30-223); Glucose 89 mg/dL (70-105); Osmolality,Calculated 284 (280-300); Potassium 3.7 mEq/L (3.5-5.1); Sodium 136 mEq/L (136-145); eGFR For African Americans > 60 (> 60); eGFR For Non-African Americans > 60 (> 60)
[2020-08-17] MEDS: *HR* Heparin 5,000 UNIT/ML VIAL SQ SCH ×2 (05:46→16:46)
[2020-08-17] MEDS: Folic Acid 1 MG TABLET PO SCH (10:28)
[2020-08-17] MEDS: Thiamine (B-1) 100 MG TABLET PO SCH (10:30)
[2020-08-17] MEDS: amLODIPine 5 MG TABLET PO SCH (10:30)
[2020-08-18] MEDS: *HR* Heparin 5,000 UNIT/ML VIAL SQ SCH ×2 (05:04→17:09)
[2020-08-18] MEDS: amLODIPine 5 MG TABLET PO SCH (09:00)
[2020-08-18] MEDS: Thiamine (B-1) 100 MG TABLET PO SCH (09:00)
[2020-08-18] MEDS: Folic Acid 1 MG TABLET PO SCH (09:00)
[2020-08-19] MEDS: *HR* Heparin 5,000 UNIT/ML VIAL SQ SCH (05:47)
[2020-08-19] MEDS: Thiamine (B-1) 100 MG TABLET PO SCH (09:30)
[2020-08-19] MEDS: amLODIPine 5 MG TABLET PO SCH (09:30)
[2020-08-19] MEDS: Folic Acid 1 MG TABLET PO SCH (09:30)
[2020-08-19 09:35] VITALS: BP 113/74
== END 2020-08-19 12:20 | disposition home or self-care (01) ==
LOC: EMEROOARM 09:43 → 2ANU 09:43 → SUATTDRO 13:26 → 2NENU 13:34
PROVIDERS: ADMIT Internal Medicine; ATTEND Internal Medicine

== ENCOUNTER 2021-10-08 08:29 | Inpatient (IN) ==
[2021-10-08 09:39] LABS: Hematocrit 38.2 % (37.5-50.1); Hemoglobin 12.8 g/dL (12.9-16.9); Mean Corpuscular HGB Conc 33.5 g/dL (31.6-35.5); Mean Corpuscular Hemoglobin 30.5 pg (28.0-33.3); Mean Platelet Volume 9.9 fL (9.4-12.4); Platelet Count 170 K/mcL (140-400); Red Cell Distribution Width 13.5 % (11.5-14.5); White Blood Count 11.5 K/mcL (4.3-11.1)
[2021-10-08] MEDS ORDERED: 0.9 % Sodium Chloride 500 ML IVC ONE (09:50)
[2021-10-08] MEDS: 0.9 % Sodium Chloride 1,000 ML IVC SCH ×2 (09:56→10:51)
[2021-10-08 10:16] LABS: Acetaminophen < 10 mcg/mL (10-20); Alanine Aminotransferase 21 Units/L (7-52); Albumin 4.8 g/dL (3.5-5.7); Albumin/Globulin Ratio 1.5 (1.1-2.2); Alkaline Phosphatase 71 Units/L (34-104); Aspartate Amino Transferase 31 Units/L (13-39); BUN/Creatinine Ratio 14 (6-26); Bilirubin,Direct 0.2 mg/dL (0.0-0.2); Bilirubin,Indirect 0.9 mg/dL (0.0-1.0); Bilirubin,Total 1.1 mg/dL (0.3-1.0); Blood Urea Nitrogen 18 mg/dL (6-20); Calcium 9.9 mg/dL (8.6-10.3); Carbon Dioxide 21 mEq/L (23-29); Chloride 93 mEq/L (98-107); Ethanol < 10 mg/dL (Less than 10); Globulin 3.1 g/dL (2.4-3.5); Glucose 114 mg/dL (70-105); Lipase 27 Units/L (11-82); Osmolality,Calculated 279 (280-300); Potassium 2.9 mEq/L (3.5-5.1); Salicylate < 2.5 mg/dL (15.0-30.0); Sodium 133 mEq/L (136-145); Total Protein 7.9 g/dL (6.4-8.9); Troponin I < 0.03 ng/mL (< 0.04)
[2021-10-08] MEDS ORDERED: Magnesium Oxide 400 MG TABLET PO ONE (10:45)
[2021-10-08] MEDS ORDERED: Potassium Chloride Elixir 20 MEQ/15 ML UDC PO ONE (11:01)
[2021-10-08 11:54] LABS: Bilirubin,Urine Small (Negative); Blood,Urine Negative (Negative); Clarity,Urine Ex.Turbid (Clear); Color,Urine Yellow (Yellow); Glucose,Urine (UA) Normal (Normal); Hyaline Casts,Urine Many per lpf (None Seen); Ketones,Urine 60 mg/dL (Negative); Leukocyte Esterase,Urine Negative (Negative); Mucus,Urine Many per lpf (None-Few); Nitrite,Urine Negative (Negative); Protein,Urine 200 mg/dL (Neg-Trace); RBC,Urine 0-3 per hpf (0-3); Specific Gravity,Urine 1.024 (1.010-1.025)
[2021-10-08 14:01] LABS: Influenza A PCR Negative (Negative); Influenza B PCR Negative (Negative); Resp. Syncytial Virus PCR Negative (Negative)
[2021-10-08 14:11] LABS: SARS-CoV-2 by PCR (In House) Negative (Negative)
[2021-10-08] MEDS ORDERED: Naloxone 0.4 MG/ML INJ IVP PRN (16:39)
[2021-10-08] MEDS ORDERED: diazePAM 5 MG TABLET PO PRN ×5 (16:56)
[2021-10-08] MEDS ORDERED: 0.9 % Sodium Chloride 1,000 ML IVC SCH (17:15)
[2021-10-08] MEDS: *HR* Heparin 5,000 UNIT/ML VIAL SQ SCH (19:47)
[2021-10-08 19:56] LABS: Amphetamine Screen,Urine Negative ng/mL (Cutoff=1000); Barbiturate Screen,Urine Negative ng/mL (Cutoff=200); Benzodiazepines Screen,Urine Negative ng/mL (Cutoff=200); Cannabinoid Screen,Urine Negative ng/mL (Cutoff = 50); Cocaine Screen,Urine Negative ng/mL (Cutoff= 300); Opiate Screen,Urine Negative ng/mL (Cutoff=300); Phencyclidine Screen,Urine Negative ng/mL (Cutoff=25)
[2021-10-09 01:51] LABS: Basophils % 0.5 %; Eosinophils % 0.5 %; Hematocrit 32.9 % (37.5-50.1); Immature Granulocytes % 0.5 % (0-4); Lymphocytes # 0.8 K/mcL (0.6-4.6); Mean Corpuscular HGB Conc 31.9 g/dL (31.6-35.5); Mean Corpuscular Hemoglobin 30.4 pg (28.0-33.3); Mean Corpuscular Volume 95.4 fL (83.0-100.0); Mean Platelet Volume 9.8 fL (9.4-12.4); Monocytes # 0.4 K/mcL (0.0-1.3); Monocytes % 6.2 %; Neutrophils # 4.4 K/mcL (1.6-8.9); Platelet Count 131 K/mcL (140-400); Red Blood Count 3.45 M/mcL (4.19-5.50); Segmented Neutrophils % 78.3 %
[2021-10-09 01:58] LABS: Hemoglobin 10.5 g/dL (12.9-16.9); White Blood Count 5.6 K/mcL (4.3-11.1)
[2021-10-09 01:59] LABS: BUN/Creatinine Ratio 17 (6-26); Blood Urea Nitrogen 11 mg/dL (6-20); Calcium 8.2 mg/dL (8.6-10.3); Carbon Dioxide 16 mEq/L (23-29); Chloride 104 mEq/L (98-107); Glucose 81 mg/dL (70-105); Osmolality,Calculated 276 (280-300); Potassium 3.3 mEq/L (3.5-5.1); Sodium 134 mEq/L (136-145)
[2021-10-09] MEDS: *HR* Heparin 5,000 UNIT/ML VIAL SQ SCH ×2 (04:23→21:11)
[2021-10-09] MEDS ORDERED: Thiamine (B-1) 100 MG in 0.9 % Sodium Chloride 50 ML IVPB SCH (10:00)
[2021-10-09] MEDS ORDERED: Multivit/Ca/Min/Fe/FA 1 TAB TABLET PO SCH (10:00)
[2021-10-09] MEDS ORDERED: *HR* LORazepam 2 MG/ML VIAL IVP PRN ×3 (11:36)
[2021-10-09] MEDS ORDERED: Naloxone 0.4 MG/ML INJ IVP PRN (13:55)
[2021-10-09] MEDS: Dexmedetomidine HCl 400 MCG/100 ML MLS IVC SCH ×2 (15:00→20:20)
[2021-10-09] MEDS ORDERED: diazePAM 10 MG/2 ML SYRINGE IVP PRN ×2 (17:41)
[2021-10-09] MEDS: diazePAM 10 MG/2 ML SYRINGE IVP PRN (18:06)
[2021-10-10] MEDS: Dexmedetomidine HCl 400 MCG/100 ML MLS IVC SCH ×2 (00:05→14:58)
[2021-10-10] MEDS: diazePAM 10 MG/2 ML SYRINGE IVP SCH ×2 (00:06→08:37)
[2021-10-10 02:18] LABS: Basophils % 0.7 %; Eosinophils # 0.2 K/mcL (0.0-0.6); Eosinophils % 3.6 %; Hematocrit 31.4 % (37.5-50.1); Hemoglobin 10.3 g/dL (12.9-16.9); Immature Granulocytes % 0.5 % (0-4); Lymphocytes # 1.2 K/mcL (0.6-4.6); Lymphocytes % 28.9 %; Mean Corpuscular HGB Conc 32.8 g/dL (31.6-35.5); Mean Corpuscular Hemoglobin 31.1 pg (28.0-33.3); Mean Corpuscular Volume 94.9 fL (83.0-100.0); Mean Platelet Volume 9.5 fL (9.4-12.4); Monocytes # 0.4 K/mcL (0.0-1.3); Monocytes % 9.3 %; Neutrophils # 2.4 K/mcL (1.6-8.9); Platelet Count 127 K/mcL (140-400); Red Blood Count 3.31 M/mcL (4.19-5.50); Red Cell Distribution Width 14.1 % (11.5-14.5); White Blood Count 4.2 K/mcL (4.3-11.1)
[2021-10-10 02:37] LABS: BUN/Creatinine Ratio 15 (6-26); Blood Urea Nitrogen 8 mg/dL (6-20); Calcium 8.8 mg/dL (8.6-10.3); Carbon Dioxide 21 mEq/L (23-29); Chloride 105 mEq/L (98-107); Glucose 106 mg/dL (70-105); Osmolality,Calculated 281 (280-300); Potassium 3.4 mEq/L (3.5-5.1); Sodium 136 mEq/L (136-145)
[2021-10-10] MEDS: *HR* Heparin 5,000 UNIT/ML VIAL SQ SCH ×3 (05:02→20:11)
[2021-10-10] MEDS: Nicotine 21 MG PATCH.TD24 TD SCH (08:23)
[2021-10-10] MEDS: Multivit/Ca/Min/Fe/FA 1 TAB TABLET PO SCH (08:24)
[2021-10-10] MEDS: diazePAM 10 MG/2 ML SYRINGE IVP PRN (08:26)
[2021-10-10] MEDS: Thiamine (B-1) 100 MG in 0.9 % Sodium Chloride 50 ML IVPB SCH (10:35)
[2021-10-11] MEDS: *HR* Heparin 5,000 UNIT/ML VIAL SQ SCH ×3 (05:24→22:01)
[2021-10-11] MEDS: Thiamine (B-1) 100 MG in 0.9 % Sodium Chloride 50 ML IVPB SCH (07:51)
[2021-10-11] MEDS: Nicotine 21 MG PATCH.TD24 TD SCH (07:52)
[2021-10-11] MEDS: Multivit/Ca/Min/Fe/FA 1 TAB TABLET PO SCH (07:52)
[2021-10-11] MEDS ORDERED: Ibuprofen 400 MG TABLET PO PRN (08:19)
[2021-10-11 09:21] LABS: Basophils % 0.7 %; Eosinophils # 0.1 K/mcL (0.0-0.6); Eosinophils % 2.5 %; Hematocrit 32.5 % (37.5-50.1); Hemoglobin 10.7 g/dL (12.9-16.9); Immature Granulocytes % 0.2 % (0-4); Lymphocytes # 1.1 K/mcL (0.6-4.6); Lymphocytes % 25.4 %; Mean Corpuscular HGB Conc 32.9 g/dL (31.6-35.5); Mean Corpuscular Hemoglobin 31.2 pg (28.0-33.3); Mean Corpuscular Volume 94.8 fL (83.0-100.0); Monocytes # 0.6 K/mcL (0.0-1.3); Monocytes % 12.3 %; Neutrophils # 2.6 K/mcL (1.6-8.9); Platelet Count 161 K/mcL (140-400); Red Blood Count 3.43 M/mcL (4.19-5.50); Red Cell Distribution Width 14.2 % (11.5-14.5); Segmented Neutrophils % 58.9 %; White Blood Count 4.5 K/mcL (4.3-11.1)
[2021-10-11] MEDS: Dexmedetomidine HCl 400 MCG/100 ML MLS IVC SCH (12:49)
[2021-10-11] MEDS: amLODIPine 5 MG TABLET PO SCH (12:57)
[2021-10-11 13:56] LABS: C-Reactive Protein < 5 mg/L (Less than 10); Creatine Kinase 77 Units/L (30-223)
[2021-10-12] MEDS: *HR* Heparin 5,000 UNIT/ML VIAL SQ SCH ×2 (05:23→05:58)
[2021-10-12 05:37] LABS: Basophils % 0.7 %; Eosinophils # 0.1 K/mcL (0.0-0.6); Eosinophils % 3.1 %; Hematocrit 37.8 % (37.5-50.1); Hemoglobin 11.9 g/dL (12.9-16.9); Immature Granulocytes % 0.4 % (0-4); Lymphocytes # 1.2 K/mcL (0.6-4.6); Lymphocytes % 25.6 %; Mean Corpuscular HGB Conc 31.5 g/dL (31.6-35.5); Mean Corpuscular Hemoglobin 30.3 pg (28.0-33.3); Mean Corpuscular Volume 96.2 fL (83.0-100.0); Mean Platelet Volume 9.8 fL (9.4-12.4); Monocytes # 0.6 K/mcL (0.0-1.3); Monocytes % 12.4 %; Neutrophils # 2.6 K/mcL (1.6-8.9); Platelet Count 194 K/mcL (140-400); Red Blood Count 3.93 M/mcL (4.19-5.50); Red Cell Distribution Width 14.2 % (11.5-14.5); Segmented Neutrophils % 57.8 %; White Blood Count 4.5 K/mcL (4.3-11.1)
[2021-10-12 05:56] LABS: BUN/Creatinine Ratio 24 (6-26); Blood Urea Nitrogen 14 mg/dL (6-20); Calcium 9.2 mg/dL (8.6-10.3); Carbon Dioxide 25 mEq/L (23-29); Chloride 103 mEq/L (98-107); Glucose 88 mg/dL (70-105); Osmolality,Calculated 284 (280-300); Potassium 3.2 mEq/L (3.5-5.1); Sodium 137 mEq/L (136-145)
[2021-10-12 07:27] VITALS: BP 137/87; PULSE 76; TEMP 98.4; O2SAT 98
[2021-10-12] MEDS: amLODIPine 5 MG TABLET PO SCH (07:59)
[2021-10-12] MEDS: Multivit/Ca/Min/Fe/FA 1 TAB TABLET PO SCH (07:59)
[2021-10-12] MEDS: Thiamine (B-1) 100 MG in 0.9 % Sodium Chloride 50 ML IVPB SCH (08:00)
[2021-10-12] MEDS: Nicotine 21 MG PATCH.TD24 TD SCH (08:00)
== END 2021-10-12 10:28 | disposition home or self-care (01) | DRG 775 ==
LOC: 3BNU 08:29 → EMEROOARM 08:29 → 3BNU 17:28 → 2NNU 10-09 13:51 → 3BNU 10-11 14:43
PROVIDERS: ADMIT Internal Medicine; ATTEND Internal Medicine